=== PATIENT | female | born 1935 | race African-American/Black ===

== ENCOUNTER 2016-11-01 15:29 | Inpatient (IN) ==
--- NOTE | 2016-11-01 15:37 | Emergency Department Note ---
Disposition Clinical Impression: ESRD (end stage renal disease) on dialysis, UTI (urinary tract infection) Disposition: Admitted As Inpatient Condition: Fair Time of Disposition: 18:52 General Adult HPI - General Chief complaint: ED General Medical Stated complaint: low spo2, low bp Nursing Notes Reviewed: Yes Vital Signs Reviewed: Yes - History of Present Illness HPI Narrative: [facility] and decreased blood pressure. Is a dialysis patient was supposed to undergo dialysis today. She is unable to dialyze today due to hypotension. Her eyes track me, but she does not respond. She does appear fluid overloaded. Her lung sounds are wet bilaterally. She has pitting edema that appears chronic to her umbilicus. Her blood pressure here is in the 90s systolic and her SPO2 was in the high 90s as well. - Related Data Home Medications Medication Instructions Recorded Confirmed Bisacodyl [Dulcolax] 10 mg RC DAILY 09/05/16 11/01/16 Dorzolamide [Trusopt] 1 drop RIGHT EYE BID 09/05/16 11/01/16 Ergocalciferol (VITAMIN D2) 50,000 unit GTUBE QWEEK 09/05/16 11/01/16 [Vitamin D2] Ipratropium/Albuterol Neb [Duoneb] 3 ml IH Q6HR PRN 09/05/16 11/01/16 Metoclopramide HCl 5 mg GTUBE DAILY 09/05/16 11/01/16 OLANZapine [Zyprexa] 2.5 mg GTUBE DAILY 09/05/16 11/01/16 Famotidine [Heartburn Prevention] 20 mg GTUBE DAILY 11/01/16 11/01/16 Metoprolol [Lopressor] 25 mg GTUBE BID 11/01/16 11/01/16 Midodrine HCl 10 mg GTUBE TUTHSA 11/01/16 11/01/16 Warfarin [Coumadin] 3 mg GTUBE DAILY 11/01/16 11/01/16 Allergies Allergy/AdvReac Type Severity Reaction Status Date / Time Penicillins Allergy Hives Verified 09/05/16 08:17 Review of Systems: Patient has a trach patient who is on a ventilator. She responds to verbal stimuli by opening her eyes. She quickly goes back to sleep. Review of systems unable to be obtained. Limitations: ROS unobtainable due to patients medical condition Past Medical History - Past Medical History Medical history: Reports: atrial fibrillation, hypertension, renal disease, other (Chronic respiratory failure) Surgical history: Reports: tracheostomy Psychiatric history: Reports: no psych history - Social History Smoking Status: Unknown if ever smoked Smokeless Tobacco Status: No Alcohol use: Reports: none Drug use: Reports: none Physical Exam - General Limitations: altered mental status (Patient nonverbal due to trach. She does open her eyes and look around the room. I do not expect patient's mentation is very far from her baseline.), other (Patient has a trach and is on a ventilator. ) - Head Head exam: atraumatic, normocephalic, normal inspection - Eye Eye exam: Present: normal appearance, PERRL, EOMI. Absent: scleral icterus - ENT ENT exam: normal exam, normal oropharynx, mucous membranes moist - Neck Neck exam: Present: normal inspection, full ROM, trachea midline - Chest Chest inspection: Present: normal inspection, symmetric chest wall rise. Absent : rash - Respiratory Respiratory exam: Present: other (Rhonchi bilaterally.) - Cardiovascular Cardiovascular exam: Present: regular rate, normal rhythm, normal heart sounds - Abdominal Exam Abdominal exam: Present: soft, Non-Tender, normal bowel sounds, other (Pitting edema to umbilicus.). Absent: tenderness, distention, guarding, rebound, rigidity - Extremities Exam Extremities exam: Present: pedal edema, other (Pitting edema to bilateral legs up to umbilicus.) - Neurological Exam Neurological exam: Present: other (Opens eyes to verbal stimuli.) - Skin Skin exam: Present: warm, dry, intact. Absent: cyanosis Course Course Narrative: Patient is a chronic dialysis patient who is on a trach and ventilator. She is brought here by EMS today due to hypotension and [facility]. They state that she cannot do dialysis today due to her hypotension. She is in the 90s systolic while she is here. She does have rhonchi bilaterally. She does respond by opening her eyes to verbal stimuli. I do not believe this is far from her baseline. She also has pitting edema to her umbilicus. This appears chronic due to skin changes. Her overall health appears to be poor. We will do a sepsis workup on the patient. We will not do a fluid bolus due to her already overloaded fluid status. Patient is not febrile and is 91 systolic. She is maintaining oxygen saturation in the high 90s on her ventilator. - Reevaluation(s) Reevaluation #1: Patient has a UTI and needs dialysis. We will admit patient for this. I started her on IV antibiotic. We have withheld an IV bolus of saline due to patient's already overloaded fluid status. - Consultations Consultation #1: LORETO Owens accepted Pt in stable consition. She is wishing to be notified when labs come back. Time: 17:00 Consultation #2: Spoke with Gudelia Owens nurse practitioner as well as Dr. Jefferson. I have inform Dr. Jefferson the patient is being emitted and he agrees to this. I also spoke to Gudelia and she is aware of patient's labs. Time: 18:42 Vital Signs Temperature 98.3 F 11/01/16 15:30 Pulse Rate 86 11/01/16 15:30 Respiratory Rate 12 11/01/16 15:30 Blood Pressure 91/47 11/01/16 15:30 O2 Sat by Pulse Oximetry 97 11/01/16 15:30 Temperature 99.6 F 11/01/16 20:00 Pulse Rate 102 11/01/16 20:00 Respiratory Rate 15 11/01/16 20:00 Blood Pressure 101/71 11/01/16 20:00 O2 Sat by Pulse Oximetry 100 11/01/16 20:00 Oxygen Delivery Oxygen Delivery Ventilator Medical Decision Making - Medical Records Medical records reviewed: Yes I reviewed the patient's medical records. - Lab Data Lab results reviewed: Yes I reviewed the patient's lab results. Result diagrams: 11/01/16 17:53 11/01/16 17:53 Lab Results 11/01/16 11/01/16 Range/Units 15:42 17:07 ABG pH 7.37 (7.32-7.45) pH Units ABG pCO2 55 H (35-45) mmHg ABG pO2 122 H (85-104) mmHg ABG HCO3 31.8 H (21-27) mEQ/L ABG Total CO2 33.5 H (20-26) mEq/L ABG O2 Saturation 99 H (95-98) % ABG Base Excess 5.3 H (-2.0 to 3.0) mEq/L Blood Gas Modality ASSIST CONTROL Inspired O2 40 % Urine Color Yellow (Yellow) Urine Clarity Cloudy A (Clear) Urine pH 5.5 (5.0-8.0) pH Units Ur Specific [place] 1.015 (1.010-1.025) Urine Protein 100 H (Neg-Trace) mg/dL Urine Glucose (UA) Normal (Normal) mg/dL Urine Ketones Trace H (Negative) mg/dL Urine Blood Moderate H (Negative) Urine Nitrite Negative (Negative) Urine Bilirubin Small H (Negative) Urine Urobilinogen Normal (Normal) mg/dL Ur Leukocyte Esterase Large H (Negative) Urine Microscopic RBC 30-50 H (0-3) per hpf Urine Microscopic WBC TNTC H (0-3) per hpf Ur Squamous Epith Cells Many H (None-Few) per lpf Urine Bacteria Many H (None-Few) per hpf Hyaline Casts None Seen (None-Few) per lpf Ur Culture Indicated? YES A (NO) - Radiology Data Radiology results reviewed: Yes I reviewed the patient's radiology results. - EKG Data EKG #1 EKG results narrative: Atrial fibrillation at a rate of 92. QRS duration is 96. QT is 341. QTC is 391. No signs of acute ischemia. Improved from previous EKG dated 09/24/2016 when patient was in A. fib with RVR at a rate of 134. Attestation Statement - Attestation Attestation: I examined this patient and my medical decision-making was reviewed with the GRAY TENDER/PA/Advanced Practice Nurse/Resident Physician. I agree with the documented findings, disposition and treatment plan as described except to the extent set forth below. He presents to the emergency department with chief complaint of low blood pressure. Patient went for dialysis today and he could not dialyze her because her systolic blood pressure was in the 50s. Patient has no complaints but is nonverbal. She is trach dependent on a ventilator. On examination she is lying comfortably in bed. Satting low 90s on her typical settings. Also diffuse wheezing and rhonchi. Opens eyes to verbal. Plan. Septic workup. The patient's blood pressure is satisfactory here. She does note have a significant amount of edema. No infectious sources down and she is not febrile. She is admitted to medicine in consult to nephrology. 35 minutes of critical care time exclusive of separately billable procedures.
[2016-11-01 15:54] LABS: ABG Base Excess 5.3 mEq/L (-2.0 to 3.0); ABG HCO3 31.8 mEQ/L (21-27); ABG Oxygen Saturation 99 % (95-98); ABG PCO2 55 mmHg (35-45); ABG PH 7.37 pH Units (7.32-7.45); ABG PO2 122 mmHg (85-104); ABG TCO2 33.5 mEq/L (20-26)
[2016-11-01 15:55] LABS: Blood Gas FiO2 40 %
[2016-11-01 17:26] LABS: Bilirubin,Urine Small (Negative); Blood,Urine Moderate (Negative); Clarity,Urine Cloudy (Clear); Color,Urine Yellow (Yellow); Glucose,Urine (UA) Normal (Normal); Ketones,Urine Trace mg/dL (Negative); Leukocyte Esterase,Urine Large (Negative); Nitrite,Urine Negative (Negative); PH,Urine 5.5 pH Units (5.0-8.0); Protein,Urine 100 mg/dL (Neg-Trace); Specific Gravity,Urine 1.015 (1.010-1.025); Urobilinogen,Urine Normal (Normal)
[2016-11-01 17:31] LABS: Bacteria,Urine Many per hpf (None-Few); RBC,Urine 30-50 per hpf (0-3); Squamous Epithelial Cell,Urine Many per lpf (None-Few); WBC,Urine TNTC per hpf (0-3)
[2016-11-01 18:02] LABS: Basophils % 0.4 %; Eosinophils # 0.2 K/mcL (0.0-0.6); Eosinophils % 2.1 %; Hematocrit 33.5 % (35.3-44.9); Hemoglobin 10.2 g/dL (11.5-15.4); Immature Granulocytes % 0.4 % (0-4); Lymphocytes # 1.4 K/mcL (0.6-4.6); Lymphocytes % 19.7 %; Mean Corpuscular HGB Conc 30.4 g/dL (31.6-35.5); Mean Corpuscular Hemoglobin 28.2 pg (28.0-33.3); Mean Corpuscular Volume 92.5 fL (83.0-100.0); Monocytes % 13.1 %; Neutrophils # 4.7 K/mcL (1.6-8.9); Platelet Count 236 K/mcL (140-400); Red Blood Count 3.62 M/mcL (3.82-4.97); Segmented Neutrophils % 64.3 %
[2016-11-01 18:03] LABS: Hyaline Casts,Urine None Seen per lpf (None-Few)
[2016-11-01 18:08] LABS: INR 2.6; Prothrombin Time 29.3 Seconds (9.4-12.1)
[2016-11-01 18:11] LABS: Activated Partial Thrombo Time 45.1 Seconds (26.0-36.0)
[2016-11-01 18:17] LABS: Albumin 2.5 g/dL (3.5-5.0); Albumin/Globulin Ratio 0.6 (1.1-2.2); Bilirubin,Direct 0.3 mg/dL (0.0-0.5); Bilirubin,Indirect 0.3 mg/dL (0.0-1.2); Bilirubin,Total 0.6 mg/dL (0.2-1.2); Globulin 3.9 g/dL (2.4-3.5); Magnesium 2.5 mg/dL (1.6-2.6); Phosphorous 4.8 mg/dL (2.3-4.7); Potassium 4.8 mEq/L (3.5-4.5); Total Protein 6.4 g/dL (6.0-8.3)
[2016-11-01] MEDS ORDERED: Cefepime HCl 2,000 MG in D5% in Water (Mini-Bag+) 100 ML IVPB STA (18:42)
--- NOTE | 2016-11-01 20:10 | Internal Med History&Physical ---
<Asif Harrington - Last Filed: 11/02/16 01:08> Date of Encounter: 11/02/16 Time of Encounter: 20:07 Assessment and Plan (1) Hypotension Current visit: Yes Status: Acute At first sepsis was high on the differential however she does not have a fever/ white count and lactic acid WNL, but she may have underlying infection: pulmonary vs. urinary tract She did miss her dialysis and has not any since Saturday and is likely third spacing, so will administer dose of Albumin Patient has poor access and may eventually need pressors, so will obtain central access now Cannot administer fluids at this time as she has significant pulmonary edema Qualifiers: Qualified Code(s): I95.9 - Hypotension, unspecified (2) Acute and chronic respiratory failure Current visit: Yes Status: Acute Patient did de-saturate in the 80's prior to arrival but has been in the 90's while on trach/vent at FiO2 of 35% Will continue with vent management and monitor pulse ox continuously Initial ABG did show normal pH with CO2 retention, which I suspect is her baseline; will obtain another in AM Qualifiers: Qualified Code(s): J96.20 - Acute and chronic respiratory failure, unspecified whether with hypoxia or hypercapnia (3) ESRD (end stage renal disease) on dialysis Current visit: Yes Status: Chronic She normally receives MWF but recently switched to TTS schedule and has not had a session since Saturday Will consult her operations and maintenance specialist, Dr. 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 Meyers is a 81 year old female who presents to emergency department with hypotension. Has h/o of ESRD on dialysis and s/p trach and is on the vent. She is nonverbal and there is no family at bedside, so all history is obtained from previous notes. She does open her eyes intermittently but makes no purposeful movements and does not appear to be in any distress. Patient was supposed to get dialysis earlier today but could not due to low blood pressure and hypoxemia and was transferred to hospital. She usually gets her dialysis on Saturday however she was recently switched to Saturday, so she has not received dialysis since Saturday. Dr. Sloan manages her dialysis. I personally tried contacting the power of assistant city attorney which was her daughter, along with 2 additional MRSA contacts, her spouse and son. Unfortunately no one unanswered so I spoke with her [facility], [place] and confirmed her CODE STATUS a full code. Unsure if any family will be arriving. Past Med Surg Social Fam HX - Past Medical History Medical history: atrial fibrillation, hypertension, renal disease, other ( Chronic respiratory failure) Psychiatric history: no psych history - Past Surgical History Surgical History: tracheostomy - Social History Smoking Status: Unknown if ever smoked Smokeless Tobacco Status: No Alcohol use: none Drug use: none Internal Medicine - H&P: Meds Bisacodyl [Dulcolax] 10 mg RC DAILY 09/05/16 [History] Dorzolamide [Trusopt] 1 drop RIGHT EYE BID 09/05/16 [History] Ergocalciferol (VITAMIN D2) [Vitamin D2] 50,000 unit GTUBE QWEEK 09/05/16 [ History] Ipratropium/Albuterol Neb [Duoneb] 3 ml IH Q6HR PRN 09/05/16 [History] Metoclopramide HCl 5 mg GTUBE DAILY 09/05/16 [History] OLANZapine [Zyprexa] 2.5 mg GTUBE DAILY 09/05/16 [History] Famotidine [Heartburn Prevention] 20 mg GTUBE DAILY 11/01/16 [History] Metoprolol [Lopressor] 25 mg GTUBE BID 11/01/16 [History] Midodrine HCl 10 mg GTUBE TUTHSA 11/01/16 [History] Warfarin [Coumadin] 3 mg GTUBE DAILY 11/01/16 [History] Allergies Penicillins Allergy (Verified 09/05/16 08:17) Hives ROS unobtainable: due to mental status All Systems PM: A 10-system review of systems was performed and is negative for pertinent findings except as documented above in the HPI. - Constitutional Vitals: Temp Pulse Resp BP Pulse Ox 99.6 F 102 15 101/71 100 11/01/16 20:00 11/01/16 20:00 11/01/16 20:00 11/01/16 20:00 11/01/16 20:00 General appearance: Present: A&O X 0, no acute distress. Absent: answers questions appropriately (non-verbal) - Head Head exam: Present: atraumatic, normocephalic - Eye Eye exam: Present: PERRL, conjuntiva pink, sclera anicteric - Neck Neck exam general surgery: Present: supple, trachea midline. Absent: lymphadenopathy Additional comments: s/p tracheostomy - Respiratory Respiratory exam: Present: rhonchi. Absent: accessory muscle use, rales, respiratory distress, wheezes - Cardiovascular Cardiovascular exam: Present: irregular rhythm, +S1, +S2, tachycardia. Absent: diastolic murmur, gallop, rubs, systolic murmur - GI/Abdominal GI/Abdominal exam: Present: normal bowel sounds, soft, no peritoneal signs. Absent: distended, tenderness - Extremities Exam Extremities exam: Present: warm, radial pulses palpable and symetrical. Absent : calf tenderness, cyanotic, pedal edema Additional comments: 1+ pitting edema of upper extremities - Neurological Exam Neurological exam: Present: altered, speech deficit (non-verbal). Absent: oriented X3, pronater drift, facial droop - Skin Skin exam: Present: dry, intact Internal Med - H&P Results - Labs CBC & Chem 7: 11/01/16 17:53 11/01/16 17:53 Labs: Short CBC 11/01/16 Range/Units 17:53 WBC 7.3 (4.3-11.1) K/mcL Hgb 10.2 L (11.5-15.4) g/dL Hct 33.5 L (35.3-44.9) % Plt Count 236 (140-400) K/mcL Neutrophils # 4.7 (1.6-8.9) K/mcL BMP 11/01/16 17:53 Sodium 135 L Potassium 4.8 H Chloride 96 L Carbon Dioxide 30 H BUN 121 H Creatinine 4.30 H Glucose 81 Calcium 11.0 H Cardiac Enzymes 11/01/16 Range/Units 17:53 Troponin I 0.03 (0-0.03) ng/mL Liver Function 11/01/16 Range/Units 17:53 Total Bilirubin 0.6 (0.2-1.2) mg/dL Direct Bilirubin 0.3 (0.0-0.5) mg/dL AST 20 (5-34) Units/L ALT 13 (0-55) Units/L Alkaline Phosphatase 234 H (38-126) Units/L Albumin 2.5 L (3.5-5.0) g/dL <Syed Alex - Last Filed: 11/02/16 05:28> Internal Medicine - H&P: HPI History of present illness: Ms. Meyers is a 81 year old female All Systems PM: A 10-system review of systems was performed and is negative for pertinent findings except as documented above in the HPI. - Constitutional Vitals: Temp Pulse Resp BP Pulse Ox 98.0 F 101 15 84/66 99 11/02/16 04:00 11/02/16 05:00 11/02/16 05:00 11/02/16 05:00 11/02/16 05:00 Internal Med - H&P Results - Labs CBC & Chem 7: 11/01/16 17:53 11/01/16 17:53 Labs: Short CBC 11/01/16 Range/Units 17:53 WBC 7.3 (4.3-11.1) K/mcL Hgb 10.2 L (11.5-15.4) g/dL Hct 33.5 L (35.3-44.9) % Plt Count 236 (140-400) K/mcL Neutrophils # 4.7 (1.6-8.9) K/mcL BMP 11/01/16 17:53 Sodium 135 L Potassium 4.8 H Chloride 96 L Carbon Dioxide 30 H BUN 121 H Creatinine 4.30 H Glucose 81 Calcium 11.0 H Cardiac Enzymes 11/01/16 Range/Units 17:53 Troponin I 0.03 (0-0.03) ng/mL Liver Function 11/01/16 Range/Units 17:53 Total Bilirubin 0.6 (0.2-1.2) mg/dL Direct Bilirubin 0.3 (0.0-0.5) mg/dL AST 20 (5-34) Units/L ALT 13 (0-55) Units/L Alkaline Phosphatase 234 H (38-126) Units/L Albumin 2.5 L (3.5-5.0) g/dL - Impressions ITS Impressions KUB X-Ray 11/02/16 00:09 IMPRESSION: Right femoral central venous catheter appears low in position, with tip inferior to the level of the right femoral head. Clinical correlation suggested. Findings were called by the radiology call center. D/ / Minor Sweet MD / Minor Sweet MD Interpreting Provider: Minor Sweet MD Pelvis X-Ray 11/02/16 01:33 IMPRESSION: Catheter tip medial to the right femoral intertrochanteric region. D/ / Raymundo Chen MD / Raymundo Chen MD Interpreting Provider: Raymundo Chen MD - Attending Attestation I examined this patient and my medical decision-making was reviewed with the Resident Physician, Dr. Harrington. I agree with the documented findings, disposition and treatment plan as described except to the extent set forth below. Chest x-ray per radiology report and my review shows small bilateral pleural effusions and mild pulmonary edema, enlarged heart size, possible left base infiltrate. Tracheostomy cannula right-sided dialysis catheter and AICD pacemaker are noted. It is possible the patient has a pneumonia and sepsis in due to debilitation she does not mount a full inflammatory response. We will continue with broad-spectrum IV antibiotics. Hold IV fluids for now due to fluid overload secondary to missed hemodialysis. Start norepinephrine for blood pressure support. The patient is highly unstable and there is high probability of emergent and significant clinical decompensation with potential impairment of organ function including cardiovascular system and respiratory system. I have performed 40 minutes of critical care time which involved decision making of high complexity to assess, manipulate, and support vital organ system, in order to prevent further life threatening deterioration of the patient's condition. The time involved in the performance of any procedures and resident teaching was not counted toward critical care time and will be billed separately. Critical care time was spent evaluating the patient, reviewing imaging studies and laboratory data, ordering medications and reevaluating for clinical response to ordered medications.
[2016-11-01] MEDS ORDERED: Ondansetron 4 MG/2 ML VIAL IVP PRN (20:16)
[2016-11-01] MEDS ORDERED: Naloxone 0.4 MG/ML INJ IVP PRN (20:16)
[2016-11-01] MEDS ORDERED: Ipratropium/Albuterol Neb 3 ML IH PRN (20:20)
[2016-11-01] MEDS ORDERED: Albumin 25% 25gram/100mL 25 GM/100 ML IV.SOLN IVPB ONE (20:32)
[2016-11-01] MEDS ORDERED: Vancomycin 1,750 MG in D5% in Water 250 ML IVPB SCH (21:00)
[2016-11-01] MEDS ORDERED: Vancomycin 1,500 MG in D5% in Water 250 ML IVPB ONE (21:30)
--- NOTE | 2016-11-01 23:27 | Procedure Note ---
<Asif Harrington - Last Filed: 11/02/16 00:37> Date of procedure: 11/02/16 Pre-op diagnosis: hypotension Post-op diagnosis: same Procedure: A time-out was completed verifying correct patient, procedure, site, positioning , and special equipment if applicable. The patient was placed in a dependent position appropriate for central line placement based on the vein to be cannulated. The patients right groin was prepped and draped in sterile fashion. 1% Lidocaine was used to anesthetize the surrounding skin area. A triple lumen catheter was introduced into the the common femoral vein using the Seldinger technique and under ultrasound guidance. The catheter was threaded smoothly over the guide wire and appropriate blood return was obtained. Each lumen of the catheter was evacuated of air and flushed with sterile saline. The catheter was then sutured in place to the skin and a sterile dressing applied. Perfusion to the extremity distal to the point of catheter insertion was checked and found to be adequate. Attending was present for the entire procedure. Estimated Blood Loss: 20 mL The patient tolerated the procedure well and there were no complications. Anesthesia: local Surgeon: Syed Aelx Elastic Cutter: Asif Harrington Estimated blood loss (cc): 20 Pathology: none sent Condition: critical Disposition: floor <Syed Alex - Last Filed: 11/02/16 05:16> Procedure: I supervised this procedure and agree with the documentation above.
[2016-11-02] MEDS ORDERED: Norepinephrine 4 MG in D5% in Water 250 ML IVC SCH ×2 (03:30→05:13)
[2016-11-02] MEDS ORDERED: Ondansetron 4 MG/2 ML VIAL IVP PRN (05:13)
[2016-11-02] MEDS ORDERED: Naloxone 0.4 MG/ML INJ IVP PRN (05:13)
[2016-11-02 05:14] LABS: Basophils % 0.6 %; Eosinophils # 0.2 K/mcL (0.0-0.6); Eosinophils % 2.1 %; Hematocrit 29.9 % (35.3-44.9); Hemoglobin 9.4 g/dL (11.5-15.4); Immature Granulocytes % 0.3 % (0-4); Lymphocytes # 1.6 K/mcL (0.6-4.6); Lymphocytes % 21.6 %; Mean Corpuscular HGB Conc 31.4 g/dL (31.6-35.5); Mean Corpuscular Hemoglobin 28.7 pg (28.0-33.3); Mean Corpuscular Volume 91.2 fL (83.0-100.0); Mean Platelet Volume 12.8 fL (9.4-12.4); Monocytes # 0.9 K/mcL (0.0-1.3); Monocytes % 12.3 %; Neutrophils # 4.6 K/mcL (1.6-8.9); Platelet Count 221 K/mcL (140-400); Red Blood Count 3.28 M/mcL (3.82-4.97); Red Cell Distribution Width 15.2 % (11.5-14.5); Segmented Neutrophils % 63.1 %
[2016-11-02 05:24] LABS: ABG Base Excess 6.6 mEq/L (-2.0 to 3.0); ABG HCO3 31.3 mEQ/L (21-27); ABG Oxygen Saturation 98 % (95-98); ABG PCO2 45 mmHg (35-45); ABG PH 7.45 pH Units (7.32-7.45); ABG PO2 105 mmHg (85-104); ABG TCO2 32.7 mEq/L (20-26)
[2016-11-02 05:26] LABS: Blood Gas FiO2 35 %
[2016-11-02 05:51] LABS: Calcium 10.8 mg/dL (8.6-10.8); Magnesium 2.6 mg/dL (1.6-2.6); Phosphorous 4.4 mg/dL (2.3-4.7); Potassium 4.6 mEq/L (3.5-4.5)
[2016-11-02] MEDS ORDERED: Albumin 25% 25gram/100mL 25 GM/100 ML IV.SOLN IVPB ONE (06:57)
[2016-11-02] MEDS ORDERED: 0.9 % Sodium Chloride 500 ML IVC ONE (06:57)
[2016-11-02] MEDS: Metoclopramide 10 MG/10 ML UD.LIQ GTUBE SCH (08:00)
[2016-11-02] MEDS: OLANZapine 5 MG TAB.RAPDIS PO SCH (08:01)
[2016-11-02] MEDS: Pantoprazole 40 MG VIAL IVP SCH (08:01)
[2016-11-02] MEDS ORDERED: OLANZapine 5 MG TAB.RAPDIS PO SCH (09:00)
[2016-11-02] MEDS ORDERED: Metoclopramide 10 MG/10 ML UD.LIQ GTUBE SCH (09:00)
[2016-11-02] MEDS ORDERED: *HR* Warfarin 3 MG TABLET GTUBE SCH ×3 (09:00→18:00)
[2016-11-02] MEDS ORDERED: Pantoprazole 40 MG VIAL IVP SCH (09:00)
[2016-11-02] MEDS: Ipratropium/Albuterol Neb 3 ML IH SCH ×3 (10:28→21:53)
--- NOTE | 2016-11-02 10:36 | Nephrology Consult Note ---
Date of Encounter: 11/02/16 Time of Encounter: 10:34 Assessment and Plan (1) ESRD (end stage renal disease) on dialysis Current Visit: Yes Status: Chronic Patient will undergo dialysis today. She will be restarted on her midodrine for blood pressure support. She will be placed on Aranesp for her anemia. (2) Acute and chronic respiratory failure Current Visit: Yes Status: Acute Qualifiers: Respiratory failure complication: unspecified whether with hypoxia or hypercapnia Qualified Code(s): J96.20 - Acute and chronic respiratory failure , unspecified whether with hypoxia or hypercapnia (3) Hypotension Current Visit: Yes Status: Acute Qualifiers: Hypotension type: other hypotension type Qualified Code(s): I95.89 - Other hypotension (4) Chronic a-fib Current Visit: Yes Status: Chronic History of Present Illness - History of Present Illness This is an 81-year-old female with end-stage renal disease who receives dialysis in [place] [address]. Patient resides at [facility]. She has chronic respiratory failure and she is on the ventilator. Patient presented outpatient dialysis yesterday with a systolic blood pressure ranging from 50- 60. She is usually on midodrine for chronic hypotension. Patient did not receive the midodrine yesterday. She was sent back to the care home because of hypotension and the inability to dialyze her. residential eventually gave her the midodrine her blood pressure improved but the dialysis unit was closed by that time. Subsequently the patient was sent to the emergency room for further evaluation. Patient is unable to provide any history on her own. Past Med Surg Social Fam HX - Past Medical History Medical history: atrial fibrillation, hypertension, renal disease, other ( Chronic respiratory failure) Psychiatric history: no psych history - Past Surgical History Surgical History: tracheostomy - Social History Smoking Status: Unknown if ever smoked Smokeless Tobacco Status: No Alcohol use: none Drug use: none Medications and Allergies Bisacodyl [Dulcolax] 10 mg RC DAILY 09/05/16 [History] Dorzolamide [Trusopt] 1 drop RIGHT EYE BID 09/05/16 [History] Ergocalciferol (VITAMIN D2) [Vitamin D2] 50,000 unit GTUBE QWEEK 09/05/16 [ History] Ipratropium/Albuterol Neb [Duoneb] 3 ml IH Q6HR PRN 09/05/16 [History] Metoclopramide HCl 5 mg GTUBE DAILY 09/05/16 [History] OLANZapine [Zyprexa] 2.5 mg GTUBE DAILY 09/05/16 [History] Famotidine [Heartburn Prevention] 20 mg GTUBE DAILY 11/01/16 [History] Metoprolol [Lopressor] 25 mg GTUBE BID 11/01/16 [History] Midodrine HCl 10 mg GTUBE TUTHSA 11/01/16 [History] Warfarin [Coumadin] 3 mg GTUBE DAILY 11/01/16 [History] Allergies Penicillins Allergy (Verified 09/05/16 08:17) Hives Review of Systems ROS unobtainable: due to mental status Exam - Vital Signs Vital signs: Initial Vital Signs Temp Pulse Resp BP Pulse Ox 98.3 F 86 12 91/47 97 11/01/16 15:30 11/01/16 15:30 11/01/16 15:30 11/01/16 15:30 11/01/16 15:30 Vital Signs - Last 8 Hours Temp Pulse Resp BP Pulse Ox 11/02/16 10:31 19 91/59 100 11/02/16 09:11 87 14 83/56 99 11/02/16 08:00 90 12 93/63 99 11/02/16 07:49 97.8 F 11/02/16 06:00 120 15 106/79 100 Intake and Output 11/01/16 11/02/16 11/02/16 23:59 07:59 15:59 Intake Total 50 / 50 Balance 50 / 50 Intake: Free Water 50 / 50 - General Appearance Exam: Patient is unresponsive. A tracheal tube is in place. She is on the ventilator. Lungs symmetric breath sounds bilaterally. Heart irregular rate and rhythm consistent with atrial fibrillation. Abdomen shows diminished bowel sounds. Abdomen is soft. There is no guarding or rigidity. PEG tube is in place. Lower extremity show mild lower extremity swelling. She has a tunnel dialysis catheter in the right chest. Results - Lab Results 11/02/16 04:45 11/02/16 04:45 Most recent lab results ABG pH 7.45 pH Units (7.32-7.45) 11/02/16 05:18 ABG pCO2 45 mmHg (35-45) 11/02/16 05:18 ABG pO2 105 mmHg (85-104) H 11/02/16 05:18 ABG HCO3 31.3 mEQ/L (21-27) H 11/02/16 05:18 ABG O2 Saturation 98 % (95-98) 11/02/16 05:18 Calcium 10.8 mg/dL (8.6-10.8) 11/02/16 04:45 Phosphorus 4.4 mg/dL (2.3-4.7) 11/02/16 04:45 Magnesium 2.6 mg/dL (1.6-2.6) 11/02/16 04:45 Consult Discharge Plan - Plan Referrals: Jon Hernandez MD [Primary Care Provider] -
[2016-11-02] MEDS ORDERED: 0.9 % Sodium Chloride 250 ML IV PRN (10:37)
[2016-11-02 12:55] LABS: Thyroid Stimulating Hormone 29.747 mcIU/mL (0.350-4.840)
--- NOTE | 2016-11-02 14:47 | Palliative - Consult Note ---
Date of Encounter: 11/02/16 Time of Encounter: 13:00 - Assessment and Plan (1) Counseling regarding advanced care planning and goals of care Current Visit: Yes Status: Acute Assessment and plan: I have discussed goals of care with pt , Leonard Gipson, son Leonard Degroot, daughter Sofie - (lives around [facility]), and KOREY Hernandez who is now at bedside. Mary brought in her power of litigation attorney associate and I made copies of this for her record. She describes medical issues over the past year with first initial umbilical infection, repeated aspirations, ileus, UTI, resp failure. She had trach done during a 3 month stay at [facility], when she was not able to tolerate bipap and re-intubated,- and has spent time at [facility] in [place] on 2 different occasions within the past year. Family resides in [facility] and states pt only at [facility] as no close facility can meet her care needs. Discussed goals of care and they insist pt remain a full code per her previously known wishes. Patient's daughter, KOREY states that the Palliative care team at [facility] consulted with them during her stay. Family very spiritual and daughter states that they still believe that God can bring them a miracle and heal their mother. Daughter reflects a great deal on her daughter, who they stated would not survive an illness and they tried to "push me to sign a DNR". She states "I did everything for my daughter, and I will do everything for my parents, as that is what they would want.". Discussed clinical status and that if hypotension continues to be an issue, she may need line placement and pressors. Daughter familiar with this as pt has had before. Family extremely friendly and appreciate of the care she is receiving here. Palliative will follow from a distance. I do not believe family will desire to change code status or goals of care, unless she experience a severe clinical event. Palliative-CN HPI - Data of Consult Consult date: 11/02/16 Requesting Physician: Sasha Harrington MD Primary Care Provider: Jon Hernandez MD - Consult Narrative History of present illness: Ms. Meyers is a 81 year old female who was admitted from [facility] when she became hypoxic and had low blood pressure. Patient had not had dialysis since Saturday and has struggled with hypotension. Dr. Cuong Benedict follows patient for her renal disease. I was unable to reach POA initially, but did speak with son and over the telephone. They describes medical issues over the past year with first initial umbilical infection, atrial fibrillation and pace placement, repeated aspirations, ileus, UTI, and resp failure. She had trach done during a 3 month stay at [facility] , when she was not able to tolerate bipap and re-intubated, has recently been to [place], and has spent time at [facility] in [place] on 2 different occasions within the past year. Son states that she has been weaned off vent a couple of times, but requires more support when ill. She has been able to tolerate a trach mask during the day and vent support at night. At my visit, she appears in no distress. Will follow me with her eyes, and occasionally shake head "yes/no" to questions, but does not follow other commands. CC: Sasha Harrington MD Past Med Surg Social Fam HX - Past Medical History Medical history: atrial fibrillation, hypertension, renal disease, other ( Chronic respiratory failure) Psychiatric history: no psych history - Past Surgical History Surgical History: tracheostomy - Social History Smoking Status: Unknown if ever smoked Smokeless Tobacco Status: No Alcohol use: none Drug use: none Medications and Allergies Bisacodyl [Dulcolax] 10 mg RC DAILY 09/05/16 [History] Dorzolamide [Trusopt] 1 drop RIGHT EYE BID 09/05/16 [History] Ergocalciferol (VITAMIN D2) [Vitamin D2] 50,000 unit GTUBE QWEEK 09/05/16 [ History] Ipratropium/Albuterol Neb [Duoneb] 3 ml IH Q6HR PRN 09/05/16 [History] Metoclopramide HCl 5 mg GTUBE DAILY 09/05/16 [History] OLANZapine [Zyprexa] 2.5 mg GTUBE DAILY 09/05/16 [History] Famotidine [Heartburn Prevention] 20 mg GTUBE DAILY 11/01/16 [History] Metoprolol [Lopressor] 25 mg GTUBE BID 11/01/16 [History] Midodrine HCl 10 mg GTUBE TUTHSA 11/01/16 [History] Warfarin [Coumadin] 3 mg GTUBE DAILY 11/01/16 [History] Allergies Penicillins Allergy (Verified 09/05/16 08:17) Hives ROS unobtainable: due to endotracheal tube Palliative Care-Exam - Constitutional Vitals: Temp Pulse Resp BP Pulse Ox 97.8 F 94 13 88/59 100 11/02/16 11:40 11/02/16 13:33 11/02/16 13:33 11/02/16 13:33 11/02/16 13:33 General appearance: Present: no acute distress - Head Head Exam: Present: normal inspection, normocephalic - Eye Eye exam: Present: normal appearance, PERRL - Respiratory Additional comments: Breath sounds course, some rhonchi RUL. Remains trach to vent. - Cardiovascular Cardiovascular exam: Present: +S1, +S2 - Extremities Exam Extremities exam: Present: normal capillary refill, normal inspection - Neurological Exam Additional comments: Eyes open, will occasionally shake head yes/no. does not follow commands. - Skin Skin exam: Present: normal color Internal Medicine - CN: Reslt - Labs CBC & Chem 7: 11/02/16 04:45 11/02/16 04:45 Labs: Cardiac Enzymes 11/02/16 Range/Units 10:09 Troponin I 0.03 (0-0.03) ng/mL - ABG Interpretation ABG results: ABG ABG pH 7.45 pH Units (7.32-7.45) 11/02/16 05:18 ABG pCO2 45 mmHg (35-45) 11/02/16 05:18 ABG pO2 105 mmHg (85-104) H 11/02/16 05:18 ABG O2 Saturation 98 % (95-98) 11/02/16 05:18 PT/INR, D-dimer PT 29.3 Seconds (9.4-12.1) H 11/01/16 17:53 Consult Discharge Plan - Plan Referrals: Jon Hernandez MD [Primary Care Provider] - Palliative Quality Palliative Quality: Screen for Code Status: Yes, Screen for Goals of Care: Yes, Screen for Pain: Yes, If Pain Regimen Started, Initiate Bowel Regimen: NA, Screen for Nausea/Vomitting: NA
--- NOTE | 2016-11-02 15:21 | Pulmonology Consult Note ---
<Kelechi Haddad - Last Filed: 11/02/16 15:18> Date of Encounter: 11/02/16 Time of Encounter: 08:15 Assessment and Plan (1) Hypotension Current Visit: Yes Status: Acute Patient into the hospital with hypotension that had gone down to the 70s/40s but over the course today has come to the high 80s/50s. She had received albumin and some fluids last night. She has been receiving Midodrin. Etiology of patient hypotension unclear at the moment. No tachycardia, no tachypnea, afebrile, no leukocytosis make the possibility of an infection unlikely. She does have a dirty appearing urine, though she is ESRD on HD and does not produce much urine so likely any dirtiness in her urine seen is contamination or colonization, not necessarily acute infection. Patient's overall health is poor and she has missed several days of dialysis. We will continue to monitor closely Additional fluids if necessary Will consider additional central line and vasopressors if worsening and patient blood pressure sitting Qualifiers: Hypotension type: other hypotension type Qualified Code(s): I95.89 - Other hypotension (2) Acute and chronic respiratory failure Current Visit: Yes Status: Acute Patient reportedly had desaturation event into the 80s prior to arrival to [place]. Over the course of the day her oxygen saturation has been in the 90s or high 90s for the majority of the day. She has a tracheotomy that she received last March for which she has been receiving mechanical dilation. At times she has not required this in his feet with her daughter she appears to have been with just the trach cuff for a couple weeks at 1 point. Patient has been afebrile, not tachycardic, not tachypneic, and no leukocytosis observed. Unlikely patient has pneumonia or other infectious etiology. We will continue to support ventilation mechanically, as needed to maintain adequate oxygen saturation Will wean mechanical ventilation as tolerated by patient We will continue empiric antibiotics of cefepime and Vanco, but will de- escalate as warranted Qualifiers: Respiratory failure complication: unspecified whether with hypoxia or hypercapnia Qualified Code(s): J96.20 - Acute and chronic respiratory failure , unspecified whether with hypoxia or hypercapnia (3) ESRD (end stage renal disease) on dialysis Current Visit: Yes Status: Chronic Patient is a known end-stage renal disease on hemodialysis with recent schedule changed from Saturday to Saturday. She has not had dialysis since Saturday. Her cycle analyst, Dr. Sloan, is consulted and appreciate recommendations for continued management/care Likely dialysis today Avoid nephrotoxic agents Continue to monitor (4) Counseling regarding advanced care planning and goals of care Current Visit: Yes Status: Acute Patient nonverbal and with several chronic health conditions. Patient is full code per previous chart documentation indicates that she was comfort care at one point in time. There is a need to clarify her CODE STATUS going forward. Palliative care has been consulted and spoken with her various family members who all indicate that she would prefer to remain full code. Palliative care team consulted Patient to remain full code (5) UTI (urinary tract infection) Current Visit: Yes Status: Suspected Patient's UA was concerning for potential UTI. Given patient has ESRD on HD and makes little urine, this could represent contamination versus chronic: Physician versus UTI. We will continue empiric antibiotics Qualifiers: Qualified Code(s): N39.0 - Urinary tract infection, site not specified (6) Chronic a-fib Current Visit: Yes Status: Chronic Patient on warfarin with therapeutic INR. Continue monitor INR Warfarin with pharmacy to dose (7) DVT prophylaxis Current Visit: Yes Status: Acute GI prophylaxis: Pantoprazole DVT prophylaxis: Warfarin Neuro/sedation: Patient nonverbal at baseline, minimally responsive on no sedation. We will continue to monitor Respiratory: Chest x-ray showed mild pleural effusion and pleural edema, slight rhonchi is auscultated. On empiric antibiotics of cefepime and Vanco. We will continue to monitor Cardiovascular: Atrial fibrillation at baseline, therapeutic on warfarin. Hypotension of unclear etiology. Potentially need central line if need for pressors arises Fluids/electrolytes: Patient undergo dialysis today likely. Mild metabolic derangements, likely corrected with dialysis Renal: ESRD on HD, no dialysis is Saturday, elevated BUN and creatinine (above her baseline). Nephrology consulted, likely HD today GI: PEG tube in place, no other concerns at this time Musculoskeletal: Slight deviation of fingers and knuckles, soft tissue mass in back of right hand Skin: Skin care per ICU protocol Endocrine: Elevated TSH, normal free T4, cortisol normal, obtaining free T3 CODE STATUS full History of Present Illness Consult date: 11/02/16 Requesting physician: Asif Harrington Reason for consult: other (Hypertension with history of trach/mechanical ventilation) Chief complaint: Hypertension History of present illness: Mrs. Meyers is an 81-year-old woman with past medical history significant for recurrent aspiration pneumonias, leading to a tracheotomy performed in March 2016. She also has a history of atrial fibrillation, hypertension, and end- stage renal disease on dialysis. She was admitted to the hospital from the [facility] as she is found to have become hypoxic and hypotensive. Because of some confusion with her dialysis chair and change his schedule, she is not had dialysis since Saturday. Patient is nonverbal at baseline so history was obtained through chart review and is some discussion with patient's daughter. The majority of her health problems began within the last year and had started initially with an umbilical infection and up resulting in repeated aspiration pneumonia,, UTIs, and respiratory failure. She had a tracheostomy performed during a 3 month stay at [facility] when she was not able tolerate BiPAP was reintubated. She has been time off and on at [facility] in [place] now spent some time at [facility]. Past Med Surg Social Fam HX - Past Medical History Medical history: atrial fibrillation, hypertension, renal disease, other ( Chronic respiratory failure) Psychiatric history: no psych history - Past Surgical History Surgical History: tracheostomy - Social History Smoking Status: Unknown if ever smoked Smokeless Tobacco Status: No Alcohol use: none Drug use: none Medications and Allergies Bisacodyl [Dulcolax] 10 mg RC DAILY 09/05/16 [History] Dorzolamide [Trusopt] 1 drop RIGHT EYE BID 09/05/16 [History] Ergocalciferol (VITAMIN D2) [Vitamin D2] 50,000 unit GTUBE QWEEK 09/05/16 [ History] Ipratropium/Albuterol Neb [Duoneb] 3 ml IH Q6HR PRN 09/05/16 [History] Metoclopramide HCl 5 mg GTUBE DAILY 09/05/16 [History] OLANZapine [Zyprexa] 2.5 mg GTUBE DAILY 09/05/16 [History] Famotidine [Heartburn Prevention] 20 mg GTUBE DAILY 11/01/16 [History] Metoprolol [Lopressor] 25 mg GTUBE BID 11/01/16 [History] Midodrine HCl 10 mg GTUBE TUTHSA 11/01/16 [History] Warfarin [Coumadin] 3 mg GTUBE DAILY 11/01/16 [History] Allergies Penicillins Allergy (Verified 09/05/16 08:17) Hives ROS unobtainable: due to mental status Physical Examination Vital Signs: Vital Signs, Last 4 Hours Temp Pulse Resp BP Pulse Ox 11/02/16 14:30 101 20 91/65 100 11/02/16 13:33 94 13 88/59 100 11/02/16 12:49 90 18 86/58 97 11/02/16 11:40 97.8 F 11/02/16 11:21 102 18 89/39 99 Constitutional: No acute distress, comfortable appearing, nonverbal, minimally responsive at baseline EENT: Sclera nonicteric, noninjected, oropharynx moist Respiratory: Respirations nonlabored, slight rhonchi appreciated Cardiovascular: Regular rhythm, normal rate, no murmurs/rubs/gallops appreciated Gastrointestinal: Normoactive bowel sounds, soft, nontender, nondistended, no guarding or rebound Integumentary: No erythema, no rashes, no pallor appreciated Extremities: No cyanosis, 1-2+ pitted edema in upper and lower extremities, no clubbing, pink and warm, pulses present and equal bilaterally Musculoskeletal: Soft, movable lump in posterior aspect of right hand Neurologic: Altered at baseline, pupils equal round reactive to light bilaterally Ventilator Settings Ventilator Settings: Ventilator Settings, Last 8 Hours Ventilator Mode CPAP Ventilator Mode CPAP Ventilator Mode CPAP Ventilator Mode CPAP Ventilator Mode CPAP Ventilator Mode CPAP Ventilator Mode CPAP Ventilator Mode CPAP Ventilator Tidal Volume 450 Setting Ventilator Tidal Volume 450 Setting Ventilator Tidal Volume 450 Setting Ventilator Tidal Volume 450 Setting Ventilator Tidal Volume 450 Setting Ventilator Tidal Volume 450 Setting Ventilator Tidal Volume 450 Setting Actual Respiratory Rate 15 Actual Respiratory Rate 16 Actual Respiratory Rate 16 Actual Respiratory Rate 21 Actual Respiratory Rate 13 Actual Respiratory Rate 14 Actual Respiratory Rate 14 Actual Respiratory Rate 13 Positive End Expiratory 5 Pressure Positive End Expiratory 5 Pressure Positive End Expiratory 5 Pressure Positive End Expiratory 5 Pressure Positive End Expiratory 5 Pressure Positive End Expiratory 5 Pressure Positive End Expiratory 5 Pressure Positive End Expiratory 5 Pressure Peak Inspiratory Airway 17 Pressure Peak Inspiratory Airway 17 Pressure Peak Inspiratory Airway 17 Pressure Peak Inspiratory Airway 17 Pressure Peak Inspiratory Airway 17 Pressure Peak Inspiratory Airway 17 Pressure Peak Inspiratory Airway 17 Pressure Peak Inspiratory Airway 17 Pressure Results - Laboratory Findings CBC and BMP: 11/02/16 04:45 11/02/16 04:45 ABG ABG pH 7.45 pH Units (7.32-7.45) 11/02/16 05:18 ABG pCO2 45 mmHg (35-45) 11/02/16 05:18 ABG pO2 105 mmHg (85-104) H 11/02/16 05:18 ABG O2 Saturation 98 % (95-98) 11/02/16 05:18 PT/INR, D-dimer PT 29.3 Seconds (9.4-12.1) H 11/01/16 17:53 Abnormal lab findings: Abnormal lab results RBC 3.28 M/mcL (3.82-4.97) L 11/02/16 04:45 Hgb 9.4 g/dL (11.5-15.4) L 11/02/16 04:45 Hct 29.9 % (35.3-44.9) L 11/02/16 04:45 MCHC 31.4 g/dL (31.6-35.5) L 11/02/16 04:45 RDW 15.2 % (11.5-14.5) H 11/02/16 04:45 MPV 12.8 fL (9.4-12.4) H 11/02/16 04:45 PT 29.3 Seconds (9.4-12.1) H 11/01/16 17:53 APTT 45.1 Seconds (26.0-36.0) H 11/01/16 17:53 ABG pO2 105 mmHg (85-104) H 11/02/16 05:18 ABG HCO3 31.3 mEQ/L (21-27) H 11/02/16 05:18 ABG Total CO2 32.7 mEq/L (20-26) H 11/02/16 05:18 ABG Base Excess 6.6 mEq/L (-2.0 to 3.0) H 11/02/16 05:18 Sodium 135 mEq/L (136-145) L 11/02/16 04:45 Potassium 4.6 mEq/L (3.5-4.5) H 11/02/16 04:45 Chloride 95 mEq/L (98-109) L 11/02/16 04:45 BUN 95 mg/dL (7-20) H D 11/02/16 04:45 Creatinine 4.53 mg/dL (0.57-1.11) H 11/02/16 04:45 Est GFR ( Amer) 11 (> 60) L 11/02/16 04:45 Est GFR (Non-Af Amer) 9 (> 60) L 11/02/16 04:45 Calculated Osmolality 308 (280-300) H 11/02/16 04:45 Alkaline Phosphatase 234 Units/L (38-126) H 11/01/16 17:53 Albumin 2.5 g/dL (3.5-5.0) L 11/01/16 17:53 Globulin 3.9 g/dL (2.4-3.5) H 11/01/16 17:53 Albumin/Globulin Ratio 0.6 (1.1-2.2) L 11/01/16 17:53 TSH 29.747 mcIU/mL (0.350-4.840) H 11/02/16 10:09 Urine Clarity Cloudy (Clear) A 11/01/16 17:07 Urine Protein 100 mg/dL (Neg-Trace) H 11/01/16 17:07 Urine Ketones Trace mg/dL (Negative) H 11/01/16 17:07 Urine Blood Moderate (Negative) H 11/01/16 17:07 Urine Bilirubin Small (Negative) H 11/01/16 17:07 Ur Leukocyte Esterase Large (Negative) H 11/01/16 17:07 Urine Microscopic RBC 30-50 per hpf (0-3) H 11/01/16 17:07 Urine Microscopic WBC TNTC per hpf (0-3) H 11/01/16 17:07 Ur Squamous Epith Cells Many per lpf (None-Few) H 11/01/16 17:07 Urine Bacteria Many per hpf (None-Few) H 11/01/16 17:07 Ur Culture Indicated? YES (NO) A 11/01/16 17:07 - Clinical Findings Intake & Output: Intake & Output 11/01/16 11/02/16 11/02/16 23:59 07:59 15:59 Intake Total 50 / 50 Balance 50 / 50 Consult Discharge Plan - Plan Referrals: Jon Hernandez MD [Primary Care Provider] - <Maxi Hook - Last Filed: 11/02/16 17:24> All Systems: A 10-system review of systems was performed and is negative for pertinent findings except as documented above in the HPI. Physical Examination Vital Signs: Vital Signs, Last 4 Hours Temp Pulse Resp BP Pulse Ox 11/02/16 16:43 107 17 86/55 100 11/02/16 16:25 14 99 11/02/16 16:01 98.0 F 11/02/16 15:21 94 14 89/55 99 11/02/16 14:30 101 20 91/65 100 11/02/16 13:33 94 13 88/59 100 Ventilator Settings Ventilator Settings: Ventilator Settings, Last 8 Hours Ventilator Mode CPAP Ventilator Mode CPAP Ventilator Mode CPAP Ventilator Mode CPAP Ventilator Mode CPAP Ventilator Mode CPAP Ventilator Mode CPAP Ventilator Mode CPAP Ventilator Mode CPAP Ventilator Tidal Volume 450 Setting Ventilator Tidal Volume 450 Setting Ventilator Tidal Volume 450 Setting Ventilator Tidal Volume 450 Setting Ventilator Tidal Volume 450 Setting Ventilator Tidal Volume 450 Setting Ventilator Tidal Volume 450 Setting Ventilator Respiratory Rate 12 Setting Actual Respiratory Rate 17 Actual Respiratory Rate 14 Actual Respiratory Rate 14 Actual Respiratory Rate 15 Actual Respiratory Rate 16 Actual Respiratory Rate 16 Actual Respiratory Rate 21 Actual Respiratory Rate 13 Actual Respiratory Rate 14 Positive End Expiratory 5 Pressure Positive End Expiratory 5 Pressure Positive End Expiratory 5 Pressure Positive End Expiratory 5 Pressure Positive End Expiratory 5 Pressure Positive End Expiratory 5 Pressure Positive End Expiratory 5 Pressure Positive End Expiratory 5 Pressure Positive End Expiratory 5 Pressure Peak Inspiratory Airway 18 Pressure Peak Inspiratory Airway 17 Pressure Peak Inspiratory Airway 17 Pressure Peak Inspiratory Airway 17 Pressure Peak Inspiratory Airway 17 Pressure Peak Inspiratory Airway 17 Pressure Peak Inspiratory Airway 17 Pressure Peak Inspiratory Airway 17 Pressure Peak Inspiratory Airway 17 Pressure Results - Laboratory Findings CBC and BMP: 11/02/16 04:45 11/02/16 04:45 ABG ABG pH 7.45 pH Units (7.32-7.45) 11/02/16 05:18 ABG pCO2 45 mmHg (35-45) 11/02/16 05:18 ABG pO2 105 mmHg (85-104) H 11/02/16 05:18 ABG O2 Saturation 98 % (95-98) 11/02/16 05:18 PT/INR, D-dimer PT 29.3 Seconds (9.4-12.1) H 11/01/16 17:53 Abnormal lab findings: Abnormal lab results RBC 3.28 M/mcL (3.82-4.97) L 11/02/16 04:45 Hgb 9.4 g/dL (11.5-15.4) L 11/02/16 04:45 Hct 29.9 % (35.3-44.9) L 11/02/16 04:45 MCHC 31.4 g/dL (31.6-35.5) L 11/02/16 04:45 RDW 15.2 % (11.5-14.5) H 11/02/16 04:45 MPV 12.8 fL (9.4-12.4) H 11/02/16 04:45 PT 29.3 Seconds (9.4-12.1) H 11/01/16 17:53 APTT 45.1 Seconds (26.0-36.0) H 11/01/16 17:53 ABG pO2 105 mmHg (85-104) H 11/02/16 05:18 ABG HCO3 31.3 mEQ/L (21-27) H 11/02/16 05:18 ABG Total CO2 32.7 mEq/L (20-26) H 11/02/16 05:18 ABG Base Excess 6.6 mEq/L (-2.0 to 3.0) H 11/02/16 05:18 Sodium 135 mEq/L (136-145) L 11/02/16 04:45 Potassium 4.6 mEq/L (3.5-4.5) H 11/02/16 04:45 Chloride 95 mEq/L (98-109) L 11/02/16 04:45 BUN 95 mg/dL (7-20) H D 11/02/16 04:45 Creatinine 4.53 mg/dL (0.57-1.11) H 11/02/16 04:45 Est GFR ( Amer) 11 (> 60) L 11/02/16 04:45 Est GFR (Non-Af Amer) 9 (> 60) L 11/02/16 04:45 Calculated Osmolality 308 (280-300) H 11/02/16 04:45 Alkaline Phosphatase 234 Units/L (38-126) H 11/01/16 17:53 Albumin 2.5 g/dL (3.5-5.0) L 11/01/16 17:53 Globulin 3.9 g/dL (2.4-3.5) H 11/01/16 17:53 Albumin/Globulin Ratio 0.6 (1.1-2.2) L 02/16/17 17:53 TSH 29.747 mcIU/mL (0.350-4.840) H 11/02/16 10:09 Urine Clarity Cloudy (Clear) A 11/01/16 17:07 Urine Protein 100 mg/dL (Neg-Trace) H 11/01/16 17:07 Urine Ketones Trace mg/dL (Negative) H 11/01/16 17:07 Urine Blood Moderate (Negative) H 11/01/16 17:07 Urine Bilirubin Small (Negative) H 11/01/16 17:07 Ur Leukocyte Esterase Large (Negative) H 11/01/16 17:07 Urine Microscopic RBC 30-50 per hpf (0-3) H 11/01/16 17:07 Urine Microscopic WBC TNTC per hpf (0-3) H 11/01/16 17:07 Ur Squamous Epith Cells Many per lpf (None-Few) H 11/01/16 17:07 Urine Bacteria Many per hpf (None-Few) H 11/01/16 17:07 Ur Culture Indicated? YES (NO) A 11/01/16 17:07 - Clinical Findings Intake & Output: Intake & Output 11/02/16 11/02/16 11/02/16 07:59 15:59 23:59 Intake Total 162 / 162 Output Total 0 / 0 Balance 162 / 162 - Attending Attestation I examined this patient and my medical decision-making was reviewed with the SENIOR MATERIALS ANALYST/PA/Advanced Practice Nurse/Resident Physician. I agree with the documented findings, disposition and treatment plan as described except to the extent set forth below. Patient seen and examined. Labs, radiology, chart personally reviewed. Agree with resident's history and physical, assessment, plan with following comments: MACHINE WHITENER: Patient is does not follows commands, Pulmonary: Acceptable oxygenation and ventilation. It is not clear to me why patient had tracheostomy and she has chronic respiratory failure vent dependent , however changed to pressure support and patient has been tolerating it and they believe the weaning process as necessary to see the patient can come off the ventilator. Palliative care to follow up with the family to clarify the CODE STATUS since there is conflicting stories regarding that. I do not feel strongly patient has pneumonia based on the chest x-ray, however cannot be ruled out and continue antibiotics. Cardiovascular: Shock is not clear that urology by suspicion could be volume status intravascularly depletion, however septic shock in the differential diagnosis and continue antibiotics with a MAP goal of 60 mmHg is acceptable. GI: Nutrition per dietary and GI prophylaxis per routine Heme: DVT prophylaxis per routine ID: Continue antibiotics and plan to de-escalation Renal; urine out put and renal funtion reviewed. Discussed with the cycle analyst and patient will have dialysis Endorcine: blood glucose is monitored Lines: all lines checked and no evidence of infections Skin: skin care to prevent pressure ulcers per nursing routine care I spent 40 min of Critical Care time with this patient. It involved decision making of high complexity to assess, manipulate, and support vital organ system failure and/or to prevent further life threatening deterioration of the patient' s condition. The time involved in the performance of separately reportable procedures was not counted toward critical care time.
--- NOTE | 2016-11-02 17:38 | Electrocardiograph Report ---
[address] [place], [place] [address] Test Date: 2016-11-01 Pat Name: Katelynn Meyers Department: 105 Room: 11 Gender: F Meat Passer: : 1935 Requested By: Faith Jimenez Order Number: [id number] Reading MD: Tori Burns Measurements Intervals [place] Rate: 92 P: PA: 0 QRS: 63 QRSD: 96 T: 70 QT: 341 QTc: 391 Interpretive Statements ATRIAL FIBRILLATION ARTIFACT Electronically Signed On 11-02-2016 17:36:59 EST by Tori Burns
[2016-11-02] MEDS ORDERED: Warfarin perPT PO PRN (18:00)
[2016-11-02 18:36] LABS: Triiodothyronine (T3) Free < 1.00 pg/mL (1.71-3.71)
[2016-11-02] MEDS ORDERED: Cefepime HCl 1,000 MG in D5% in Water (Mini-Bag+) 100 ML IVPB SCH (21:00)
[2016-11-02 21:15] LABS: Acinetobacter baumannii by PCR Not Detected (Not Detect); Candida albicans by PCR Not Detected (Not Detect); Candida glabrata by PCR Not Detected (Not Detect); Candida krusei by PCR Not Detected (Not Detect); Candida parapsilosis by PCR Not Detected (Not Detect); Candida tropicalis by PCR Not Detected (Not Detect); Enterococcus by PCR Not Detected (Not Detect); Escherichia coli by PCR Not Detected (Not Detect); Klebsiella oxytoca by PCR Not Detected (Not Detect); Klebsiella pneumoniae by PCR Not Detected (Not Detect); Pseudomonas aeruginosa by PCR Not Detected (Not Detect); Serratia marcescens by PCR Not Detected (Not Detect); Staphylococcus aureus by PCR Not Detected (Not Detect); Streptococcus agalactiae(B)PCR Not Detected (Not Detect); Streptococcus by PCR Not Detected (Not Detect); Streptococcus pneumoniae PCR Not Detected (Not Detect); Streptococcus pyogenes (A) PCR Not Detected (Not Detect); blaKPC Carbapenem-Resist Gene Not Detected (Not Detect); mecA Methicillin-Resist Gene ***DETECTED*** (Not Detect); vanA/B Vancomycin-Resist Genes Not Detected (Not Detect)
[2016-11-02] MEDS: Cefepime HCl 1,000 MG in D5% in Water (Mini-Bag+) 100 ML IVPB SCH (21:35)
--- NOTE | 2016-11-02 22:08 | ECHO - Doppler Report ---
Echocardiogram Name: Katelynn Meyers Date of Study: 11/02/2016 Date: 1935 Ht: 65.0 in Medical Record#: [id number] Age: 81 Wt: 226.0 lb Gender: Female BSA: 2.08 Order #: [id number] Location: [facility] Room #: 11 Reading Physician: Aly Tran DO, CHEVY BONILLA FASNC Bingo Checker: Dacia Luna Ordering Physician: Asif Harrington DO Primary Physician: Jon Hernandez MD Indications: Fluid overload hypotension Impressions: Technically sub-optimal due to poor echocardiographic windows. LVEF 60-65%. Normal LV chamber size and function. Mild concentric left ventricular hypertrophy. Indeterminate diastolic function. Mildly dilated and hypokinetic right ventricle. Severely biatrial enlargement. Mild aortic regurgitation. Mild mitral regurgitation, which was not well evaluated and could be underestimated. Severe tricuspid regurgitation. No pulmonary hypertension identified. Left Ventricular Wall Motion: Rest Echo Findings All wall segments showed normal motion. Findings: Study Quality * Technically sub-optimal due to poor echocardiographic windows. ECG Findings * Atrial fibrillation. Left Ventricle * LVEF 60-65%. * Normal LV chamber size and function. * Mild concentric left ventricular hypertrophy. * Indeterminate diastolic function. Right Ventricle * Mildly dilated and hypokinetic right ventricle. Left Atrium * Severely dilated left atrium. Right Atrium * Severely dilated right atrium. Interatrial Septum * Interatrial septum not well evaluated. Aortic Valve * Aortic valve not well visualized. * Mildly calcified aortic valve leaflets. * Mild aortic regurgitation. * No aortic stenosis. Mitral Valve * Mildly thickened mitral valve leaflets. * Mild mitral annular calcification * Mild mitral regurgitation. * No mitral stenosis. Tricuspid Valve * Normal tricuspid valve structure. * Severe tricuspid regurgitation. * No pulmonary hypertension. * Estimated RVSP is 24 mmHg. * Estimated RA pressure is 5 mmHg. Pulmonic Valve * Pulmonic valve not well visualized. Aorta * Normally sized aortic root. Pericardium * The pericardium appears normal. IVC * The IVC is not well evaluated. Pulmonary Artery * Normal visualized portions of the main pulmonary artery. History Measurements: BP: 89/ 39 2D Normal Values RVIDd: 3.60 cm <2.7 cm IVSd: 1.40 cm 0.6 - 1.0 cm LVIDd: 3.60 cm 3.7 - 5.6 cm LVPWd: 1.40 cm 0.6 - 1.1 cm LVIDs: 2.60 cm 1.5 - 3.6 cm AO: 2.20 cm < 4.0 cm LA: 4.80 cm 2.0 - 4.0cm %FS: 27.80 cm >25 % LA volume: 99 Mitral Valve Peak E:.78 m/sec Peak E' Lat Lucas:11.4 cm/s Peak E' Med Lucas:7.7 cm/s E/E' Lat Ratio:6.8 E/E' Med Ratio:10.1 Tricuspid Valve TV Regurg Peak Grad: 19.00mmHg TV Regurg Peak Lucas: 2.16m/sec Updated by Aly Tran DO, CHAD, PRIYANKA REECE on 11/02/2016 10:02:20 PM electronically signed on 11/02/2016 10:03:36 PM with status of Final Wall Motion Alberto: 1=Normal, 2=Hypokinesis, 3=Akinesis, 4=Dyskinesis, 5=Aneurysmal, 6=Hyperkinetic, X=Not Visualized (Blank)=Missing
[2016-11-03 03:01] LABS: Basophils % 0.3 %; Eosinophils # 0.1 K/mcL (0.0-0.6); Eosinophils % 1.3 %; Hematocrit 29.7 % (35.3-44.9); Hemoglobin 9.3 g/dL (11.5-15.4); Immature Granulocytes % 0.3 % (0-4); Lymphocytes # 1.2 K/mcL (0.6-4.6); Lymphocytes % 17.9 %; Mean Corpuscular HGB Conc 31.3 g/dL (31.6-35.5); Mean Corpuscular Hemoglobin 28.3 pg (28.0-33.3); Mean Corpuscular Volume 90.3 fL (83.0-100.0); Mean Platelet Volume 11.5 fL (9.4-12.4); Monocytes % 14.3 %; Neutrophils # 4.5 K/mcL (1.6-8.9); Platelet Count 210 K/mcL (140-400); Red Blood Count 3.29 M/mcL (3.82-4.97); Red Cell Distribution Width 15.3 % (11.5-14.5); Segmented Neutrophils % 65.9 %
[2016-11-03 03:16] LABS: Albumin 2.7 g/dL (3.5-5.0); Albumin/Globulin Ratio 0.7 (1.1-2.2); Bilirubin,Total 0.7 mg/dL (0.2-1.2); Calcium 9.9 mg/dL (8.6-10.8); Potassium 3.9 mEq/L (3.5-4.5); Total Protein 6.7 g/dL (6.0-8.3)
[2016-11-03 03:20] LABS: INR 3.1; Prothrombin Time 34.8 Seconds (9.4-12.1)
[2016-11-03] MEDS: Ipratropium/Albuterol Neb 3 ML IH SCH ×4 (04:49→22:21)
[2016-11-03] MEDS ORDERED: Vancomycin 1,500 MG in D5% in Water 250 ML IVPB ONE (05:30)
[2016-11-03] MEDS: Pantoprazole 40 MG VIAL IVP SCH (08:34)
[2016-11-03] MEDS: OLANZapine 5 MG TAB.RAPDIS PO SCH (08:34)
[2016-11-03] MEDS: Metoclopramide 10 MG/10 ML UD.LIQ GTUBE SCH (08:34)
[2016-11-03] MEDS ORDERED: 0.9 % Sodium Chloride 250 ML IV PRN (08:54)
[2016-11-03] MEDS ORDERED: Vancomycin 500 MG in D5% in Water (Mini-Bag+) 100 ML IVPB ONE (09:55)
--- NOTE | 2016-11-03 10:33 | Nephrology Progress Note ---
Date of Encounter: 11/03/16 Time of Encounter: 10:10 - Assessment and Plan (1) ESRD (end stage renal disease) on dialysis Current Visit: Yes Status: Chronic Will do HD today. On Midodrine for BP support. Orders given Subjective Interval history: Trach to vent. Opens eyes when name called. BP 82/54 Objective - Vital Signs Vital signs: Vital Signs Temp Pulse Resp BP Pulse Ox 11/03/16 09:00 131 24 76/55 98 11/03/16 08:05 99.6 F 11/03/16 08:00 126 18 70/49 100 11/03/16 07:00 120 15 82/45 100 11/03/16 06:00 116 16 82/57 99 11/03/16 05:40 99.2 F 11/03/16 05:00 126 23 102/62 99 11/03/16 04:47 22 94/62 100 11/03/16 04:00 99.2 F 125 25 93/53 100 11/03/16 03:00 125 24 70/52 100 11/03/16 02:26 20 100 11/03/16 02:00 120 26 81/59 100 11/03/16 01:00 121 25 86/50 100 11/03/16 00:10 98.8 F 11/03/16 00:00 98.8 F 121 16 91/59 100 11/02/16 23:00 107 20 83/56 98 11/02/16 22:00 109 25 84/59 91 L 11/02/16 21:55 20 100 11/02/16 21:04 32 80/56 96 11/02/16 21:00 117 24 80/56 97 11/02/16 20:12 97.9 F 11/02/16 20:10 97/64 11/02/16 20:00 113 18 77/61 90 L 11/02/16 19:55 97/64 11/02/16 19:40 97/64 11/02/16 19:27 20 97/64 92 L 11/02/16 19:25 81/53 11/02/16 19:10 105/85 11/02/16 19:00 118 22 84/56 94 L 11/02/16 18:55 86/58 11/02/16 18:40 83/53 11/02/16 18:37 131 23 83/53 100 11/02/16 18:25 83/53 11/02/16 18:10 87/56 11/02/16 17:55 95/48 11/02/16 17:52 133 22 95/48 100 11/02/16 17:50 97.4 F L 16 98/56 11/02/16 17:40 78/40 11/02/16 17:25 78/50 11/02/16 17:10 89/54 11/02/16 16:55 97.4 F L 22 95/48 11/02/16 16:43 107 17 86/55 100 11/02/16 16:25 14 99 11/02/16 16:01 98.0 F 11/02/16 15:21 94 14 89/55 99 11/02/16 14:30 101 20 91/65 100 11/02/16 13:33 94 13 88/59 100 11/02/16 12:49 90 18 86/58 97 11/02/16 11:40 97.8 F 11/02/16 11:21 102 18 89/39 99 11/02/16 10:33 101 10 91/59 99 Intake and Output 11/02/16 11/03/16 11/03/16 23:59 07:59 15:59 Intake Total 985 / 985 291 / 291 291 / 291 Output Total 2600 / 2600 0 / 0 Balance -1615 / -1615 291 / 291 291 / 291 Intake: IV Fluids 100 / 100 Maxipime 1,000 MG In 100 / 100 Dextrose 5% (Minibag+) 100 ML 100 ML @ 200 mls/ hr IVPB Q24H [facility] Rx#: [id number] Oral 0 / 0 Tube Feeding 285 / 285 291 / 291 191 / 191 Free Water 50 / 50 Intake, Rinseback and 600 / 600 Flushes Free Water Intake Amount 50 / 50 Output: Total Dialysis Output 2600 / 2600 Catheter 0 / 0 Other: # Voids 1 Weight 102 kg 102 kg Blood Glucose* 96 Hemodialysis Net Fluid 2245 Removed (mL) Patient Weight 11/03/16 23:59 Weight 102 kg - General Appearance General appearance: Present: well-developed, well-nourished, appears started age , chronically ill EENT: Present: mucous membranes moist Neck: Present: no JVD Respiratory: Present: clear Cardiology: Present: no edema, regular rate, regular rhythm Gastrointestinal: Present: normoactive bowel sounds Integumentary: Present: warm and dry Psychiatric: Present: mood/affect appropriate - Lab 11/03/16 02:45 11/03/16 02:45 Most recent lab results ABG pH 7.45 pH Units (7.32-7.45) 11/02/16 05:18 ABG pCO2 45 mmHg (35-45) 11/02/16 05:18 ABG pO2 105 mmHg (85-104) H 11/02/16 05:18 ABG HCO3 31.3 mEQ/L (21-27) H 11/02/16 05:18 ABG O2 Saturation 98 % (95-98) 11/02/16 05:18 Calcium 9.9 mg/dL (8.6-10.8) 11/03/16 02:45 Phosphorus 4.4 mg/dL (2.3-4.7) 11/02/16 04:45 Magnesium 2.6 mg/dL (1.6-2.6) 11/02/16 04:45 Consult Discharge Plan - Plan Referrals: Jon Hernandez MD [Primary Care Provider] -
--- NOTE | 2016-11-03 12:05 | Pulmonology Progress Note ---
<Kelechi Haddad - Last Filed: 11/03/16 13:33> Date of Encounter: 11/03/16 Time of Encounter: 09:45 Assessment and Plan (1) Bacteremia Current Visit: Yes Status: Acute Patient found to have blood culture positive for gram positive cocci as well as Staphylococcus and MRSA positive PCR. This constellation is concerning for MRSA bacteremia. Patient hypotension likely related to septic shock. We will continue outpatient antibiotics of vancomycin and cefepime We will continue to closely monitor patient and patient blood pressure We will support patient blood pressure with as needed fluid boluses Hydrocortisone 100 mg every 8 5% albumin Peripheral dopamine if needed (2) Hypotension Current Visit: Yes Status: Acute Patient hypotension likely related to MRSA bacteremia. Gram-negative lucas also seen in patient urine. Patient blood pressure has been lower today, as low as 60s/40s. We will provide fluid boluses as needed 5% albumin We will treat bacteremia with vancomycin, continue cefepime for gram-negative rods in urine Dopamine if needed to maintain blood pressure Midodrin Hydrocortisone Qualifiers: Hypotension type: other hypotension type Qualified Code(s): I95.89 - Other hypotension (3) Acute and chronic respiratory failure Current Visit: Yes Status: Acute Patient reportedly had desaturation event into the 80s prior to arrival to [place]. Over the course of the day her oxygen saturation has been in the 90s or high 90s for the majority of the day. She has a tracheotomy that she received last March for which she has been receiving mechanical dilation. At times she has not required mechanical ventilation. Patient has been on CPAP consistently and maintaining adequate oxygenation. Temperature has been up to 99.6 and has been tachycardic. Patient oxygenating adequately on CPAP, continue CPAP but support ventilation mechanically if necessary Patient has MRSA bacteremia, will continue vancomycin for bacteremia We will continue cefepime for now due to gram-negative bacteria seen and patient urine Qualifiers: Respiratory failure complication: unspecified whether with hypoxia or hypercapnia Qualified Code(s): J96.20 - Acute and chronic respiratory failure , unspecified whether with hypoxia or hypercapnia (4) ESRD (end stage renal disease) on dialysis Current Visit: Yes Status: Chronic Patient is a known end-stage renal disease on hemodialysis with recent schedule changed from Saturday to Saturday. She has not had dialysis since Saturday. Patient underwent dialysis yesterday, and another session of dialysis today Her supervisor green end department, Dr. Sloan, is consulted and appreciate recommendations for continued management/care Avoid nephrotoxic agents Continue to monitor (5) Counseling regarding advanced care planning and goals of care Current Visit: Yes Status: Acute Patient nonverbal and with several chronic health conditions. Patient is full code per previous chart documentation indicates that she was comfort care at one point in time. There is a need to clarify her CODE STATUS going forward. Palliative care has been consulted and spoken with her various family members who all indicate that she would prefer to remain full code. Palliative care team consulted Patient to remain full code (6) UTI (urinary tract infection) Current Visit: Yes Status: Suspected Urine culture shows gram negative lucas. Unsure if this is contamination versus colonization versus acute UTI. Will continue cefepime for now. Continue cefepime Qualifiers: Urinary tract infection type: site unspecified Hematuria presence: without hematuria Qualified Code(s): N39.0 - Urinary tract infection, site not specified (7) Chronic a-fib Current Visit: Yes Status: Chronic Patient INR slightly supratherapeutic at 3.1, pharmacy to dose warfarin Continue monitor INR Warfarin with pharmacy to dose (8) DVT prophylaxis Current Visit: Yes Status: Acute GI prophylaxis: Pantoprazole DVT prophylaxis: Warfarin Neuro/sedation: Patient nonverbal at baseline, minimally responsive on no sedation. We will continue to monitor Respiratory: Chest x-ray showed mild pleural effusion and pleural edema, slight rhonchi is auscultated. On empiric antibiotics of cefepime and Vanco. We will continue to monitor Cardiovascular: Atrial fibrillation at baseline, therapeutic on warfarin. Hypotension septic in etiology. Try to avoid invasive interventions for blood pressure, will add dopamine peripherally if needed Fluids/electrolytes: Patient undergo dialysis today likely. Mild metabolic derangements, likely corrected with dialysis Renal: ESRD on HD, no dialysis is Saturday, elevated BUN and creatinine (above her baseline). Nephrology consulted, HD yesterday and today GI: PEG tube in place, no other concerns at this time Musculoskeletal: Slight deviation of fingers and knuckles, soft tissue mass in back of right hand ID: MRSA bacteremia, potential gram-negative lucas UTI. On vancomycin and cefepime. We will continue these antibiotics Skin: Skin care per ICU protocol Endocrine: Elevated TSH, normal free T4, cortisol normal, free T3 < 1, will supplement with Synthroid CODE STATUS full Subjective Principal diagnosis: Respiratory failure, hypotension, bacteremia Interval history: Patient appears slightly more responsive today, opening her eyes for previously she was not. She still does not follow commands. Blood pressures have been lower today but relatively stable. Blood cultures and PCR indicating MRSA bacteremia. Her continue to monitor closely Objective PUL Vital signs: Last Vital Signs Temp 99.6 F 11/03/16 08:05 Pulse 121 11/03/16 11:40 Resp 16 11/03/16 11:10 BP 80/48 11/03/16 11:40 Pulse Ox 99 11/03/16 11:00 Constitutional: No acute distress, alert, comfortable appearing EENT: Sclera nonicteric, noninjected, oropharynx moist, neck supple Respiratory: Respirations nonlabored, diffuse rhonchi appreciated Cardiovascular: Regular rate and rhythm, no murmurs/rubs/gallops appreciated Gastrointestinal: Normoactive bowel sounds, soft, nontender, nondistended, no guarding or rebound, PEG in place, no erythema or induration appreciated Integumentary: No erythema, no rashes, no pallor appreciated, capillary refill < 2 seconds, skin turgor normal, slight breakdown of skin in gluteal region Extremities: No cyanosis, 1+ edema, no clubbing, pink and warm, pulses present and equal bilaterally, bilateral foot boots intact Musculoskeletal: No deformities Neurologic: pupils equal round reactive to light bilaterally, patient nonverbal baseline Ventilator Settings Ventilator Settings: Ventilator Settings, Last 8 Hours Ventilator Mode CPAP Ventilator Mode CPAP Ventilator Mode CPAP Ventilator Mode CPAP Ventilator Mode CPAP Ventilator Mode CPAP Ventilator Tidal Volume 450 Setting Ventilator Tidal Volume 450 Setting Ventilator Tidal Volume 450 Setting Ventilator Tidal Volume 450 Setting Ventilator Tidal Volume 450 Setting Actual Respiratory Rate 17 Actual Respiratory Rate 21 Actual Respiratory Rate 18 Actual Respiratory Rate 18 Actual Respiratory Rate 15 Actual Respiratory Rate 26 Positive End Expiratory 5 Pressure Positive End Expiratory 5 Pressure Positive End Expiratory 5 Pressure Positive End Expiratory 5 Pressure Positive End Expiratory 5 Pressure Positive End Expiratory 5 Pressure Peak Inspiratory Airway 18 Pressure Peak Inspiratory Airway 17 Pressure Peak Inspiratory Airway 17 Pressure Peak Inspiratory Airway 17 Pressure Peak Inspiratory Airway 17 Pressure Peak Inspiratory Airway 17 Pressure Results - Laboratory Findings CBC and BMP: 11/03/16 02:45 11/03/16 02:45 ABG ABG pH 7.45 pH Units (7.32-7.45) 11/02/16 05:18 ABG pCO2 45 mmHg (35-45) 11/02/16 05:18 ABG pO2 105 mmHg (85-104) H 11/02/16 05:18 ABG O2 Saturation 98 % (95-98) 11/02/16 05:18 PT/INR, D-dimer PT 34.8 Seconds (9.4-12.1) H 11/03/16 02:45 Abnormal lab findings: Abnormal lab results RBC 3.29 M/mcL (3.82-4.97) L 11/03/16 02:45 Hgb 9.3 g/dL (11.5-15.4) L 11/03/16 02:45 Hct 29.7 % (35.3-44.9) L 11/03/16 02:45 MCHC 31.3 g/dL (31.6-35.5) L 11/03/16 02:45 RDW 15.3 % (11.5-14.5) H 11/03/16 02:45 PT 34.8 Seconds (9.4-12.1) H 11/03/16 02:45 APTT 45.1 Seconds (26.0-36.0) H 11/01/16 17:53 ABG pO2 105 mmHg (85-104) H 11/02/16 05:18 ABG HCO3 31.3 mEQ/L (21-27) H 11/02/16 05:18 ABG Total CO2 32.7 mEq/L (20-26) H 11/02/16 05:18 ABG Base Excess 6.6 mEq/L (-2.0 to 3.0) H 11/02/16 05:18 Sodium 135 mEq/L (136-145) L 11/03/16 02:45 Chloride 96 mEq/L (98-109) L 11/03/16 02:45 BUN 51 mg/dL (7-20) H D 11/03/16 02:45 Creatinine 2.92 mg/dL (0.57-1.11) H 11/03/16 02:45 Est GFR ( Amer) 19 (> 60) L 11/03/16 02:45 Est GFR (Non-Af Amer) 15 (> 60) L 11/03/16 02:45 Glucose 104 mg/dL (70-99) H 11/03/16 02:45 POC Glucose 110 (58-89) H 11/03/16 11:31 Alkaline Phosphatase 210 Units/L (38-126) H 11/03/16 02:45 Albumin 2.7 g/dL (3.5-5.0) L 11/03/16 02:45 Globulin 4.0 g/dL (2.4-3.5) H 11/03/16 02:45 Albumin/Globulin Ratio 0.7 (1.1-2.2) L 11/03/16 02:45 TSH 29.747 mcIU/mL (0.350-4.840) H 11/02/16 10:09 Free T3 < 1.00 pg/mL (1.71-3.71) L 11/02/16 10:09 Urine Clarity Cloudy (Clear) A 11/01/16 17:07 Urine Protein 100 mg/dL (Neg-Trace) H 11/01/16 17:07 Urine Ketones Trace mg/dL (Negative) H 11/01/16 17:07 Urine Blood Moderate (Negative) H 11/01/16 17:07 Urine Bilirubin Small (Negative) H 11/01/16 17:07 Ur Leukocyte Esterase Large (Negative) H 11/01/16 17:07 Urine Microscopic RBC 30-50 per hpf (0-3) H 11/01/16 17:07 Urine Microscopic WBC TNTC per hpf (0-3) H 11/01/16 17:07 Ur Squamous Epith Cells Many per lpf (None-Few) H 11/01/16 17:07 Urine Bacteria Many per hpf (None-Few) H 11/01/16 17:07 Ur Culture Indicated? YES (NO) A 11/01/16 17:07 Staphylococcus sp PCR DETECTED (Not Detect) A 11/01/16 20:12 MRS (TEM-PCR) DETECTED (Not Detect) A 11/01/16 20:12 - Clinical Findings Intake & Output: Intake & Output 11/02/16 11/03/16 11/03/16 23:59 07:59 15:59 Intake Total 985 / 985 291 / 291 1621 / 1621 Output Total 2600 / 2600 0 / 0 Balance -1615 / -1615 291 / 291 1621 / 1621 Weight 102 kg 102 kg Consult Discharge Plan - Plan Referrals: Jon Hernandez MD [Primary Care Provider] - <Maxi Hook - Last Filed: 11/03/16 18:21> Objective PUL Vital signs: Last Vital Signs Temp 98.4 F 11/03/16 15:57 Pulse 104 11/03/16 18:00 Resp 16 11/03/16 18:00 BP 87/60 11/03/16 18:00 Pulse Ox 99 11/03/16 18:00 Ventilator Settings Ventilator Settings: Ventilator Settings, Last 8 Hours Ventilator Mode CPAP Ventilator Mode CPAP Ventilator Mode CPAP Ventilator Mode CPAP Ventilator Mode CPAP Ventilator Mode CPAP Ventilator Mode CPAP Ventilator Mode CPAP Ventilator Tidal Volume 450 Setting Ventilator Tidal Volume 450 Setting Ventilator Tidal Volume 450 Setting Ventilator Tidal Volume 450 Setting Actual Respiratory Rate 17 Actual Respiratory Rate 14 Actual Respiratory Rate 27 Actual Respiratory Rate 14 Actual Respiratory Rate 14 Actual Respiratory Rate 17 Actual Respiratory Rate 16 Positive End Expiratory 5 Pressure Positive End Expiratory 5 Pressure Positive End Expiratory 5 Pressure Positive End Expiratory 5 Pressure Positive End Expiratory 5 Pressure Positive End Expiratory 5 Pressure Positive End Expiratory 5 Pressure Positive End Expiratory 5 Pressure Peak Inspiratory Airway 17 Pressure Peak Inspiratory Airway 17 Pressure Peak Inspiratory Airway 17 Pressure Peak Inspiratory Airway 18 Pressure Peak Inspiratory Airway 17 Pressure Peak Inspiratory Airway 17 Pressure Peak Inspiratory Airway 18 Pressure Peak Inspiratory Airway 17 Pressure Results - Laboratory Findings CBC and BMP: 11/03/16 02:45 11/03/16 02:45 ABG ABG pH 7.45 pH Units (7.32-7.45) 11/02/16 05:18 ABG pCO2 45 mmHg (35-45) 11/02/16 05:18 ABG pO2 105 mmHg (85-104) H 11/02/16 05:18 ABG O2 Saturation 98 % (95-98) 11/02/16 05:18 PT/INR, D-dimer PT 34.8 Seconds (9.4-12.1) H 11/03/16 02:45 Abnormal lab findings: Abnormal lab results RBC 3.29 M/mcL (3.82-4.97) L 11/03/16 02:45 Hgb 9.3 g/dL (11.5-15.4) L 11/03/16 02:45 Hct 29.7 % (35.3-44.9) L 11/03/16 02:45 MCHC 31.3 g/dL (31.6-35.5) L 11/03/16 02:45 RDW 15.3 % (11.5-14.5) H 11/03/16 02:45 PT 34.8 Seconds (9.4-12.1) H 11/03/16 02:45 APTT 45.1 Seconds (26.0-36.0) H 11/01/16 17:53 ABG pO2 105 mmHg (85-104) H 11/02/16 05:18 ABG HCO3 31.3 mEQ/L (21-27) H 11/02/16 05:18 ABG Total CO2 32.7 mEq/L (20-26) H 11/02/16 05:18 ABG Base Excess 6.6 mEq/L (-2.0 to 3.0) H 11/02/16 05:18 Sodium 135 mEq/L (136-145) L 11/03/16 02:45 Chloride 96 mEq/L (98-109) L 11/03/16 02:45 BUN 51 mg/dL (7-20) H D 11/03/16 02:45 Creatinine 2.92 mg/dL (0.57-1.11) H 11/03/16 02:45 Est GFR ( Amer) 19 (> 60) L 11/03/16 02:45 Est GFR (Non-Af Amer) 15 (> 60) L 11/03/16 02:45 Glucose 104 mg/dL (70-99) H 11/03/16 02:45 POC Glucose 110 (58-89) H 11/03/16 11:31 Alkaline Phosphatase 210 Units/L (38-126) H 11/03/16 02:45 Albumin 2.7 g/dL (3.5-5.0) L 11/03/16 02:45 Globulin 4.0 g/dL (2.4-3.5) H 11/03/16 02:45 Albumin/Globulin Ratio 0.7 (1.1-2.2) L 11/03/16 02:45 TSH 29.747 mcIU/mL (0.350-4.840) H 11/02/16 10:09 Free T3 < 1.00 pg/mL (1.71-3.71) L 11/02/16 10:09 Urine Clarity Cloudy (Clear) A 11/01/16 17:07 Urine Protein 100 mg/dL (Neg-Trace) H 11/01/16 17:07 Urine Ketones Trace mg/dL (Negative) H 11/01/16 17:07 Urine Blood Moderate (Negative) H 11/01/16 17:07 Urine Bilirubin Small (Negative) H 11/01/16 17:07 Ur Leukocyte Esterase Large (Negative) H 11/01/16 17:07 Urine Microscopic RBC 30-50 per hpf (0-3) H 11/01/16 17:07 Urine Microscopic WBC TNTC per hpf (0-3) H 11/01/16 17:07 Ur Squamous Epith Cells Many per lpf (None-Few) H 11/01/16 17:07 Urine Bacteria Many per hpf (None-Few) H 11/01/16 17:07 Ur Culture Indicated? YES (NO) A 11/01/16 17:07 Staphylococcus sp PCR DETECTED (Not Detect) A 11/01/16 20:12 MRS (TEM-PCR) DETECTED (Not Detect) A 11/01/16 20:12 - Clinical Findings Intake & Output: Intake & Output 11/03/16 11/03/1618 07:59 15:59 23:59 Intake Total 291 / 291 2421 / 2421 Output Total 0 / 0 Balance 291 / 291 2421 / 2421 Weight 102 kg 102 kg - Attending Attestation I examined this patient and my medical decision-making was reviewed with the PHARMACY INFORMATICS MANAGER/PA/Advanced Practice Nurse/Resident Physician. I agree with the documented findings, disposition and treatment plan as described except to the extent set forth below. Patient seen and examined. Labs, radiology, chart personally reviewed. 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 However, I don't feel decanulation of the tracheostomy would be recommended. Cardiovascular: Hypotensive. I feel MAP of 55-60 mmHg is reasonable for patient. I feel her BP is not reliable and due to coagulopathy, not a good a candidate for A-line. With her general condition, I feel this is acceptable. Hoping treatment of her bactremia will help. GI: Nutrition per dietary and GI prophylaxis per routine Heme: DVT prophylaxis per routine. Patient coagulopathic. ID: Continue antibiotics and plan to de-escalation. Add Fluconazole Renal; urine out put and renal funtion reviewed Endorcine: blood glucose is monitored. Give stress dose steroid and Thyroxine for hypothyroidism. Lines: all lines checked and no evidence of infections. She has femoral line in place, could be as peripheral vein, however due to coagulpathy and I suspect this patient has vasculopathy, to keep it in place for now. Skin: skin care to prevent pressure ulcers per nursing routine care I spent 35 min of Critical Care time with this patient. It involved decision making of high complexity to assess, manipulate, and support vital organ system failure and/or to prevent further life threatening deterioration of the patient' s condition. The time involved in the performance of separately reportable procedures was not counted toward critical care time.
[2016-11-03] MEDS: Fluconazole 100 MG/50 ML 100 MG/50 ML BAG IVPB SCH (12:27)
[2016-11-03] MEDS: Hydrocortisone Sodium Succ 100 MG/2 ML VIAL IVP SCH ×2 (14:22→17:50)
[2016-11-03] MEDS ORDERED: Hydrocortisone Sodium Succ 100 MG/2 ML VIAL IVP SCH (16:00)
[2016-11-03] MEDS: Levothyroxine Sodium 100 MCG VIAL IVP SCH (17:50)
[2016-11-03] MEDS: Cefepime HCl 1,000 MG in D5% in Water (Mini-Bag+) 100 ML IVPB SCH (21:13)
[2016-11-04] MEDS: Hydrocortisone Sodium Succ 100 MG/2 ML VIAL IVP SCH ×3 (00:11→16:29)
[2016-11-04] MEDS: Ipratropium/Albuterol Neb 3 ML IH SCH ×4 (04:47→22:21)
[2016-11-04 04:50] LABS: Hematocrit 31.4 % (35.3-44.9); Hemoglobin 9.4 g/dL (11.5-15.4); INR 2.7; Immature Granulocytes % 0.5 % (0-4); Lymphocytes # 0.6 K/mcL (0.6-4.6); Lymphocytes % 13.8 %; Mean Corpuscular HGB Conc 29.9 g/dL (31.6-35.5); Mean Corpuscular Hemoglobin 27.8 pg (28.0-33.3); Mean Corpuscular Volume 92.9 fL (83.0-100.0); Mean Platelet Volume 11.9 fL (9.4-12.4); Monocytes # 0.2 K/mcL (0.0-1.3); Monocytes % 4.8 %; Neutrophils # 3.5 K/mcL (1.6-8.9); Platelet Count 215 K/mcL (140-400); Prothrombin Time 29.8 Seconds (9.4-12.1); Red Blood Count 3.38 M/mcL (3.82-4.97); Red Cell Distribution Width 15.3 % (11.5-14.5); Segmented Neutrophils % 80.9 %
[2016-11-04 04:56] LABS: Calcium 9.6 mg/dL (8.6-10.8); Potassium 4.3 mEq/L (3.5-4.5)
[2016-11-04] MEDS: Levothyroxine Sodium 100 MCG VIAL IVP SCH (07:51)
[2016-11-04] MEDS: OLANZapine 5 MG TAB.RAPDIS PO SCH (07:51)
[2016-11-04] MEDS: Metoclopramide 10 MG/10 ML UD.LIQ GTUBE SCH (07:52)
[2016-11-04] MEDS: Pantoprazole 40 MG VIAL IVP SCH (07:52)
[2016-11-04] MEDS: Fluconazole 100 MG/50 ML 100 MG/50 ML BAG IVPB SCH (07:54)
[2016-11-04] MEDS: Ertapenem 500 MG in 0.9 % Sodium Chloride Mini Bag 100 ML IVPB SCH (08:43)
--- NOTE | 2016-11-04 10:13 | Nephrology Progress Note ---
Date of Encounter: 11/04/16 Time of Encounter: 10:00 - Assessment and Plan (1) ESRD (end stage renal disease) on dialysis Current Visit: Yes Status: Chronic Blood culture positive for gram positive cocci, Staphylococcus and MRSA. Will do HD tomorrow then DC permacath. Rest 2 days and have new line placed. Subjective Principal diagnosis: Respiratory failure, hypotension, bacteremia Interval history: Trach to vent. Opens eyes when name called. Nods head yes/no. Objective - Vital Signs Vital signs: Vital Signs Temp Pulse Resp BP Pulse Ox 11/04/16 09:51 128 20 105/77 100 11/04/16 08:33 151 16 98/72 92 L 11/04/16 07:51 119 16 92/58 89 L 11/04/16 06:38 16 85/48 97 11/04/16 06:00 105 16 83/56 97 11/04/16 05:44 99.1 F 11/04/16 05:00 105 20 105/74 100 11/04/16 04:48 19 100 11/04/16 04:00 121 20 87/70 100 11/04/16 03:00 109 15 86/61 98 11/04/16 02:00 100 14 83/57 98 11/04/16 01:58 16 85/62 97 11/04/16 01:00 94 15 82/57 98 11/04/16 00:05 17 95/51 98 11/04/16 00:00 97 22 95/61 100 11/03/16 23:01 98.4 F 11/03/16 23:00 98.4 F 103 17 94/63 96 11/03/16 22:21 15 103/69 92 L 11/03/16 22:00 116 15 89/57 94 L 11/03/16 21:00 94 14 106/61 97 11/03/16 20:15 14 90/55 98 11/03/16 20:00 94 14 86/56 97 11/03/16 19:11 98.3 F 11/03/16 19:00 98 14 107/72 98 11/03/16 18:00 104 16 87/60 99 11/03/16 17:05 17 79/56 98 11/03/16 17:00 99 16 79/56 98 11/03/16 16:00 104 11/03/16 15:57 98.4 F 11/03/16 15:27 28 77/47 95 11/03/16 14:18 96/66 11/03/16 14:10 95/45 11/03/16 14:00 105 16 76/39 100 11/03/16 13:55 27 76/39 95 11/03/16 13:40 95/61 11/03/16 13:25 92/52 11/03/16 13:10 92/52 11/03/16 13:00 115 16 60/34 100 11/03/16 12:55 75/49 11/03/16 12:40 87/54 11/03/16 12:25 88/61 11/03/16 12:10 95/58 11/03/16 12:00 117 14 71/53 100 11/03/16 11:55 75/49 11/03/16 11:40 121 86/57 11/03/16 11:25 82/42 11/03/16 11:10 16 79/44 11/03/16 11:00 114 17 63/33 99 11/03/16 10:56 16 69/43 100 11/03/16 10:55 84/58 Intake and Output 11/03/16 11/04/16 11/04/16 23:59 07:59 15:59 Intake Total 284 / 284 710 / 710 Output Total Balance 274 / 274 705 / 705 Intake: IV Fluids 100 / 100 Maxipime 1,000 MG In 100 / 100 Dextrose 5% (Minibag+) 100 ML 100 ML @ 200 mls/ hr IVPB Q24H [facility] Rx#: [id number] Tube Feeding 134 / 134 710 / 710 Free Water 50 / 50 Output: Catheter Other: Blood Glucose* 181 172 - General Appearance General appearance: Present: well-developed, well-nourished, appears started age EENT: Present: mucous membranes moist Neck: Present: no JVD Respiratory: Present: clear Cardiology: Present: edema, irregular rhythm Additional Comments: trace pitting Gastrointestinal: Present: normoactive bowel sounds, no tenderness Integumentary: Present: warm and dry Psychiatric: Present: mood/affect appropriate, cooperative - Lab 11/04/16 04:35 11/04/16 04:35 Most recent lab results ABG pH 7.45 pH Units (7.32-7.45) 11/02/16 05:18 ABG pCO2 45 mmHg (35-45) 11/02/16 05:18 ABG pO2 105 mmHg (85-104) H 11/02/16 05:18 ABG HCO3 31.3 mEQ/L (21-27) H 11/02/16 05:18 ABG O2 Saturation 98 % (95-98) 11/02/16 05:18 Calcium 9.6 mg/dL (8.6-10.8) 11/04/16 04:35 Phosphorus 4.4 mg/dL (2.3-4.7) 11/02/16 04:45 Magnesium 2.6 mg/dL (1.6-2.6) 11/02/16 04:45 Consult Discharge Plan - Plan Referrals: Jon Hernandez MD [Primary Care Provider] -
--- NOTE | 2016-11-04 11:02 | Pulmonology Progress Note ---
<Kelechi Haddad - Last Filed: 11/04/16 16:16> Date of Encounter: 11/04/16 Time of Encounter: 09:00 Assessment and Plan (1) Bacteremia Current Visit: Yes Status: Acute Patient found to have blood culture positive for methicillin-resistant Staphylococcus epidermidis and ESBL producing Escherichia coli. Patient hypotension likely related to septic shock. Patient blood pressure stabilized with interventions undertaken yesterday including Solu-Cortef, levothyroxine, fluid pulses, and when necessary albumin. We will continue patient vancomycin Change patient cefepime to ertapenem We will continue to closely monitor patient and patient blood pressure We will support patient blood pressure with as needed fluid boluses Continue Solu-Cortef Continue levothyroxin When necessary 5% albumin Peripheral dopamine if needed (2) Hypotension Current Visit: Yes Status: Acute Patient hypotension likely septic shock given patient methicillin-resistant Staphylococcus epidermidis bacteremia and ESBL Escherichia coli uti. Patient blood pressure has been stable today in the mid 90s to low 100s over 60s. We will provide fluid boluses as needed Continue when necessary 5% albumin We will treat bacteremia with vancomycin We will change cefepime to ertapenem for ESBL producing Escherichia coli in urine Peripheral Dopamine if needed to maintain blood pressure Continue Midodrin Continue Hydrocortisone Qualifiers: Hypotension type: other hypotension type Qualified Code(s): I95.89 - Other hypotension (3) Acute and chronic respiratory failure Current Visit: Yes Status: Acute Patient reportedly had desaturation event into the 80s prior to arrival to [place]. Over the course of the day her oxygen saturation has been in the 90s or high 90s for the majority of the day. She has a tracheotomy that she received last March for which she has been receiving mechanical dilation. At times she has not required mechanical ventilation. Patient has been on CPAP for several days, switch to trach mask today and oxygen a well. Patient oxygenating adequately on trach mask, continue CPAP at night to support respiration Patient has MRSE bacteremia, will continue vancomycin for bacteremia Cefepime changed to ertapenem Qualifiers: Respiratory failure complication: unspecified whether with hypoxia or hypercapnia Qualified Code(s): J96.20 - Acute and chronic respiratory failure , unspecified whether with hypoxia or hypercapnia (4) UTI (urinary tract infection) Current Visit: Yes Status: Suspected Urine culture grew ESBL producing Escherichia coli. Stop cefepime, start ertapenem Qualifiers: Urinary tract infection type: site unspecified Hematuria presence: without hematuria Qualified Code(s): N39.0 - Urinary tract infection, site not specified (5) ESRD (end stage renal disease) on dialysis Current Visit: Yes Status: Chronic Patient is a known end-stage renal disease on hemodialysis with recent schedule changed from Saturday to Saturday. She has not had dialysis since Saturday. Patient underwent dialysis 11/02/16, and another session 11/03/16 Her card placer, Dr. Sloan, is consulted and appreciate recommendations for continued management/care Avoid nephrotoxic agents Continue to monitor (6) Hypothyroid Current Visit: Yes Status: Acute Patient found to have elevated TSH of over 29, with free T3 <1.0. 25 g Synthroid started yesterday following 100 mg administration Solu-Cortef. Continue 25 g Synthroid Qualifiers: Hypothyroidism type: unspecified Qualified Code(s): E03.9 - Hypothyroidism , unspecified (7) Chronic a-fib Current Visit: Yes Status: Chronic Patient INR slightly supratherapeutic at 3.1, pharmacy to dose warfarin Continue monitor INR Warfarin with pharmacy to dose (8) DVT prophylaxis Current Visit: Yes Status: Acute GI prophylaxis: Pantoprazole DVT prophylaxis: Warfarin Neuro/sedation: Patient nonverbal at baseline, alert and able to respond to some questions today. We will continue to monitor Respiratory: Chest x-ray showed mild pleural effusion and pleural edema, slight rhonchi is auscultated. On vancomycin and ertapenem. We will continue to monitor Cardiovascular: Atrial fibrillation at baseline, therapeutic on warfarin. Hypotension septic in etiology. Try to avoid invasive interventions for blood pressure, will add dopamine peripherally if needed. Continue when necessary fluids, when necessary albumin, Solu-Cortef, Synthroid, Midodrin Fluids/electrolytes: Patient had dialysis on 11/02 and 11/03 Renal: ESRD on HD, no dialysis since Sunday 10/29 at admission, had HD on 11/02 and 11/03. Nephrology consulted GI: PEG tube in place, no other concerns at this time Musculoskeletal: Slight deviation of fingers and knuckles, soft tissue mass in back of right hand ID: MRSE bacteremia and ESBL Escherichia coli UTI. On vancomycin and started on ertapenem 11/04 Skin: Skin care per ICU protocol Endocrine: Elevated TSH, normal free T4, cortisol normal, free T3 < 1, continued Synthroid CODE STATUS full (9) Counseling regarding advanced care planning and goals of care Current Visit: Yes Status: Acute Patient nonverbal and with several chronic health conditions. Patient is full code per previous chart documentation indicates that she was comfort care at one point in time. There is a need to clarify her CODE STATUS going forward. Palliative care has been consulted and spoken with her various family members who all indicate that she would prefer to remain full code. Palliative care team consulted Patient to remain full code Subjective Principal diagnosis: Respiratory failure, hypotension, bacteremia Interval history: Patient appears more responsive and alert today. She has her eyes open spontaneously and seems to be able to understand what is being sent to her (to some extent) disease. She responded basic questions with slight nodding or shaking of her head. She denies shortness of breath, reports some discomfort ( but unable tell where close). Blood cultures show methicillin-resistant Staphylococcus epidermidis and urine culture grew ESBL Escherichia coli. Blood pressures have stabilized now been good for her. She has been on CPAP via trach for several days now, transition to trach mask this morning and is doing well. Objective PUL Vital signs: Last Vital Signs Temp 99.1 F 11/04/16 05:44 Pulse 128 11/04/16 09:51 Resp 20 11/04/16 09:51 BP 105/77 11/04/16 09:51 Pulse Ox 100 11/04/16 09:51 Constitutional: No acute distress, alert, comfortable appearing EENT: Sclera nonicteric, noninjected, oropharynx moist, neck supple Respiratory: Respirations nonlabored, slight expiratory wheeze auscultated Cardiovascular: Regular rate and rhythm, no murmurs/rubs/gallops appreciated Gastrointestinal: Normoactive bowel sounds, soft, nontender, nondistended, no guarding or rebound, PEG in place, no erythema or induration appreciated Integumentary: No erythema, no rashes, no pallor appreciated, skin turgor normal , slight breakdown of skin in gluteal region Extremities: No cyanosis, no edema, no clubbing, pink and warm, pulses present and equal bilaterally, bilateral foot boots in place, Musculoskeletal: No deformities Neurologic: pupils equal round reactive to light bilaterally, patient nonverbal baseline Ventilator Settings Ventilator Settings: Ventilator Settings, Last 8 Hours Ventilator Mode CPAP Ventilator Mode CPAP Actual Respiratory Rate 19 Actual Respiratory Rate 25 Positive End Expiratory 5 Pressure Positive End Expiratory 5 Pressure Peak Inspiratory Airway 17 Pressure Peak Inspiratory Airway 17 Pressure Results - Laboratory Findings CBC and BMP: 11/04/16 04:35 11/04/16 04:35 ABG ABG pH 7.45 pH Units (7.32-7.45) 11/02/16 05:18 ABG pCO2 45 mmHg (35-45) 11/02/16 05:18 ABG pO2 105 mmHg (85-104) H 11/02/16 05:18 ABG O2 Saturation 98 % (95-98) 11/02/16 05:18 PT/INR, D-dimer PT 29.8 Seconds (9.4-12.1) H 11/04/16 04:35 Abnormal lab findings: Abnormal lab results RBC 3.38 M/mcL (3.82-4.97) L 11/04/16 04:35 Hgb 9.4 g/dL (11.5-15.4) L 11/04/16 04:35 Hct 31.4 % (35.3-44.9) L 11/04/16 04:35 MCH 27.8 pg (28.0-33.3) L 11/04/16 04:35 MCHC 29.9 g/dL (31.6-35.5) L 11/04/16 04:35 RDW 15.3 % (11.5-14.5) H 11/04/16 04:35 PT 29.8 Seconds (9.4-12.1) H 11/04/16 04:35 APTT 45.1 Seconds (26.0-36.0) H 11/01/16 17:53 ABG pO2 105 mmHg (85-104) H 11/02/16 05:18 ABG HCO3 31.3 mEQ/L (21-27) H 11/02/16 05:18 ABG Total CO2 32.7 mEq/L (20-26) H 11/02/16 05:18 ABG Base Excess 6.6 mEq/L (-2.0 to 3.0) H 11/02/16 05:18 Sodium 134 mEq/L (136-145) L 11/04/16 04:35 Chloride 95 mEq/L (98-109) L 11/04/16 04:35 BUN 38 mg/dL (7-20) H D 11/04/16 04:35 Creatinine 2.45 mg/dL (0.57-1.11) H 11/04/16 04:35 Est GFR ( Amer) 23 (> 60) L 11/04/16 04:35 Est GFR (Non-Af Amer) 19 (> 60) L 11/04/16 04:35 Glucose 176 mg/dL (70-99) H 11/04/16 04:35 POC Glucose 172 (58-89) H 11/04/16 05:48 Alkaline Phosphatase 210 Units/L (38-126) H 11/03/16 02:45 Albumin 2.7 g/dL (3.5-5.0) L 11/03/16 02:45 Globulin 4.0 g/dL (2.4-3.5) H 11/03/16 02:45 Albumin/Globulin Ratio 0.7 (1.1-2.2) L 11/03/16 02:45 TSH 29.747 mcIU/mL (0.350-4.840) H 11/02/16 10:09 Free T3 < 1.00 pg/mL (1.71-3.71) L 11/02/16 10:09 Urine Clarity Cloudy (Clear) A 11/01/16 17:07 Urine Protein 100 mg/dL (Neg-Trace) H 11/01/16 17:07 Urine Ketones Trace mg/dL (Negative) H 11/01/16 17:07 Urine Blood Moderate (Negative) H 11/01/16 17:07 Urine Bilirubin Small (Negative) H 11/01/16 17:07 Ur Leukocyte Esterase Large (Negative) H 11/01/16 17:07 Urine Microscopic RBC 30-50 per hpf (0-3) H 11/01/16 17:07 Urine Microscopic WBC TNTC per hpf (0-3) H 11/01/16 17:07 Ur Squamous Epith Cells Many per lpf (None-Few) H 11/01/16 17:07 Urine Bacteria Many per hpf (None-Few) H 11/01/16 17:07 Ur Culture Indicated? YES (NO) A 11/01/16 17:07 Vancomycin Trough 23.6 mcg/mL (10-20) H* 11/04/16 04:35 Staphylococcus sp PCR DETECTED (Not Detect) A 11/01/16 20:12 MRS (TEM-PCR) DETECTED (Not Detect) A 11/01/16 20:12 - Clinical Findings Intake & Output: Intake & Output 11/03/16 11/04/16 11/04/16 23:59 07:59 15:59 Intake Total 284 / 284 710 / 710 Output Total 5 / 5 Balance 274 / 274 705 / 705 Consult Discharge Plan - Plan Referrals: Jon Hernandez MD [Primary Care Provider] - <Maxi Hook - Last Filed: 11/04/16 19:38> Objective PUL Vital signs: Last Vital Signs Temp 99.1 F 11/04/16 05:44 Pulse 131 11/04/16 11:26 Resp 20 11/04/16 11:26 BP 95/66 11/04/16 11:26 Pulse Ox 100 11/04/16 11:26 Ventilator Settings Ventilator Settings: Ventilator Settings, Last 8 Hours Ventilator Mode CPAP Ventilator Mode CPAP Actual Respiratory Rate 19 Actual Respiratory Rate 25 Positive End Expiratory 5 Pressure Positive End Expiratory 5 Pressure Peak Inspiratory Airway 17 Pressure Peak Inspiratory Airway 17 Pressure Results - Laboratory Findings CBC and BMP: 11/04/16 04:35 11/04/16 04:35 ABG ABG pH 7.45 pH Units (7.32-7.45) 11/02/16 05:18 ABG pCO2 45 mmHg (35-45) 11/02/16 05:18 ABG pO2 105 mmHg (85-104) H 11/02/16 05:18 ABG O2 Saturation 98 % (95-98) 11/02/16 05:18 PT/INR, D-dimer PT 29.8 Seconds (9.4-12.1) H 11/04/16 04:35 Abnormal lab findings: Abnormal lab results RBC 3.38 M/mcL (3.82-4.97) L 11/04/16 04:35 Hgb 9.4 g/dL (11.5-15.4) L 11/04/16 04:35 Hct 31.4 % (35.3-44.9) L 11/04/16 04:35 MCH 27.8 pg (28.0-33.3) L 11/04/16 04:35 MCHC 29.9 g/dL (31.6-35.5) L 11/04/16 04:35 RDW 15.3 % (11.5-14.5) H 11/04/16 04:35 PT 29.8 Seconds (9.4-12.1) H 11/04/16 04:35 APTT 45.1 Seconds (26.0-36.0) H 11/01/16 17:53 ABG pO2 105 mmHg (85-104) H 11/02/16 05:18 ABG HCO3 31.3 mEQ/L (21-27) H 11/02/16 05:18 ABG Total CO2 32.7 mEq/L (20-26) H 11/02/16 05:18 ABG Base Excess 6.6 mEq/L (-2.0 to 3.0) H 11/02/16 05:18 Sodium 134 mEq/L (136-145) L 11/04/16 04:35 Chloride 95 mEq/L (98-109) L 11/04/16 04:35 BUN 38 mg/dL (7-20) H D 11/04/16 04:35 Creatinine 2.45 mg/dL (0.57-1.11) H 11/04/16 04:35 Est GFR ( Amer) 23 (> 60) L 11/04/16 04:35 Est GFR (Non-Af Amer) 19 (> 60) L 11/04/16 04:35 Glucose 176 mg/dL (70-99) H 11/04/16 04:35 POC Glucose 172 (58-89) H 11/04/16 05:48 Alkaline Phosphatase 210 Units/L (38-126) H 11/03/16 02:45 Albumin 2.7 g/dL (3.5-5.0) L 11/03/16 02:45 Globulin 4.0 g/dL (2.4-3.5) H 11/03/16 02:45 Albumin/Globulin Ratio 0.7 (1.1-2.2) L 11/03/16 02:45 TSH 29.747 mcIU/mL (0.350-4.840) H 11/02/16 10:09 Free T3 < 1.00 pg/mL (1.71-3.71) L 11/02/16 10:09 Urine Clarity Cloudy (Clear) A 11/01/16 17:07 Urine Protein 100 mg/dL (Neg-Trace) H 11/01/16 17:07 Urine Ketones Trace mg/dL (Negative) H 11/01/16 17:07 Urine Blood Moderate (Negative) H 11/01/16 17:07 Urine Bilirubin Small (Negative) H 11/01/16 17:07 Ur Leukocyte Esterase Large (Negative) H 11/01/16 17:07 Urine Microscopic RBC 30-50 per hpf (0-3) H 11/01/16 17:07 Urine Microscopic WBC TNTC per hpf (0-3) H 11/01/16 17:07 Ur Squamous Epith Cells Many per lpf (None-Few) H 11/01/16 17:07 Urine Bacteria Many per hpf (None-Few) H 11/01/16 17:07 Ur Culture Indicated? YES (NO) A 11/01/16 17:07 Vancomycin Trough 23.6 mcg/mL (10-20) H* 11/04/16 04:35 Staphylococcus sp PCR DETECTED (Not Detect) A 11/01/16 20:12 MRS (TEM-PCR) DETECTED (Not Detect) A 11/01/16 20:12 - Clinical Findings Intake & Output: Intake & Output 11/03/16 11/04/16 11/04/16 23:59 07:59 15:59 Intake Total 284 / 284 710 / 710 140 / 140 Output Total 10 / 10 5 / 5 Balance 274 / 274 705 / 705 140 / 140 - Attending Attestation I examined this patient and my medical decision-making was reviewed with the FRUIT PICKER MACHINE OPERATOR/PA/Advanced Practice Nurse/Resident Physician. I agree with the documented findings, disposition and treatment plan as described except to the extent set forth below. Patient seen and examined. Labs, radiology, chart personally reviewed. Agree with resident's history and physical, assessment, plan with following comments: NUTRITION COUNSELOR: Patient somewhat more awake. Pulmonary: Acceptable oxygenation and ventilation. She was successfully weaned off to TM. To put her back on the vent at night, if necessary. Cardiovascular: BP much improved with replacement of her thyroid and steroid. Will lower dose of thyroxine due to tachycardia GI: Nutrition per dietary and GI prophylaxis per routine Heme: DVT prophylaxis per routine ID: Continue antibiotics and plan to de-escalation Renal; urine out put and renal funtion reviewed Endorcine: blood glucose is monitored Lines: all lines checked and no evidence of infections. Nephrology to decide about access for HD. I feel patient has vascuolpathy and for now will keep right femoral as peripheral access Skin: skin care to prevent pressure ulcers per nursing routine care
[2016-11-04] MEDS ORDERED: *HR* Warfarin 2.5 MG TABLET PO ONE (18:00)
[2016-11-05] MEDS: Hydrocortisone Sodium Succ 100 MG/2 ML VIAL IVP SCH ×3 (00:24→17:47)
[2016-11-05] MEDS: Ipratropium/Albuterol Neb 3 ML IH SCH ×4 (03:49→22:10)
[2016-11-05 04:49] LABS: Basophils % 0.1 %; Eosinophils % 0.1 %; Hematocrit 31.6 % (35.3-44.9); Hemoglobin 9.4 g/dL (11.5-15.4); Immature Granulocytes % 1.1 % (0-4); Lymphocytes % 14.6 %; Mean Corpuscular HGB Conc 29.7 g/dL (31.6-35.5); Mean Corpuscular Hemoglobin 27.6 pg (28.0-33.3); Mean Corpuscular Volume 92.9 fL (83.0-100.0); Monocytes # 0.6 K/mcL (0.0-1.3); Monocytes % 7.8 %; Neutrophils # 5.4 K/mcL (1.6-8.9); Platelet Count 244 K/mcL (140-400); Red Cell Distribution Width 15.2 % (11.5-14.5); Segmented Neutrophils % 76.3 %
[2016-11-05 04:52] LABS: INR 2.7; Prothrombin Time 30.3 Seconds (9.4-12.1)
[2016-11-05 05:07] LABS: Calcium 9.6 mg/dL (8.6-10.8); Potassium 4.4 mEq/L (3.5-4.5)
[2016-11-05] MEDS: Pantoprazole 40 MG VIAL IVP SCH (07:56)
[2016-11-05] MEDS: Levothyroxine Sodium 100 MCG VIAL IVP SCH (07:56)
[2016-11-05] MEDS: OLANZapine 5 MG TAB.RAPDIS PO SCH (07:59)
[2016-11-05] MEDS: Metoclopramide 10 MG/10 ML UD.LIQ GTUBE SCH (08:00)
--- NOTE | 2016-11-05 08:49 | Pulmonology Progress Note ---
<Kelechi Haddad - Last Filed: 11/05/16 08:49> Time of Encounter: 08:30 Assessment and Plan (1) Bacteremia Current Visit: Yes Status: Acute Patient found to have blood culture positive for methicillin-resistant Staphylococcus epidermidis and ESBL producing Escherichia coli. Patient hypotension likely related to septic shock. Patient blood pressure stabilized with interventions undertaken yesterday including Solu-Cortef, levothyroxine, fluid pulses, and when necessary albumin. We will continue patient vancomycin Change patient cefepime to ertapenem We will continue to closely monitor patient and patient blood pressure We will support patient blood pressure with as needed fluid boluses Continue Solu-Cortef Continue levothyroxin When necessary 5% albumin Peripheral dopamine if needed (2) Hypotension Current Visit: Yes Status: Acute Patient hypotension likely septic shock given patient methicillin-resistant Staphylococcus epidermidis bacteremia and ESBL Escherichia coli uti. Patient blood pressure has been stable today in the mid 90s to low 100s over 60s. We will provide fluid boluses as needed Continue when necessary 5% albumin We will treat bacteremia with vancomycin We will change cefepime to ertapenem for ESBL producing Escherichia coli in urine Peripheral Dopamine if needed to maintain blood pressure Continue Midodrin Continue Hydrocortisone Qualifiers: Hypotension type: other hypotension type Qualified Code(s): I95.89 - Other hypotension (3) Acute and chronic respiratory failure Current Visit: Yes Status: Acute Patient reportedly had desaturation event into the 80s prior to arrival to [place]. Over the course of the day her oxygen saturation has been in the 90s or high 90s for the majority of the day. She has a tracheotomy that she received last March for which she has been receiving mechanical dilation. At times she has not required mechanical ventilation. Patient has been on CPAP for several days, switch to trach mask today and oxygen a well. Patient oxygenating adequately on trach mask, continue CPAP at night to support respiration Patient has MRSE bacteremia, will continue vancomycin for bacteremia Cefepime changed to ertapenem Qualifiers: Respiratory failure complication: unspecified whether with hypoxia or hypercapnia Qualified Code(s): J96.20 - Acute and chronic respiratory failure , unspecified whether with hypoxia or hypercapnia (4) UTI (urinary tract infection) Current Visit: Yes Status: Suspected Urine culture grew ESBL producing Escherichia coli. Stop cefepime, start ertapenem Qualifiers: Urinary tract infection type: site unspecified Hematuria presence: without hematuria Qualified Code(s): N39.0 - Urinary tract infection, site not specified (5) ESRD (end stage renal disease) on dialysis Current Visit: Yes Status: Chronic Patient is a known end-stage renal disease on hemodialysis with recent schedule changed from Saturday to Saturday. She has not had dialysis since Saturday. Patient underwent dialysis 11/02/16, and another session 11/03/16 Her cut off machine operator, Dr. Sloan, is consulted and appreciate recommendations for continued management/care Avoid nephrotoxic agents Continue to monitor (6) Hypothyroid Current Visit: Yes Status: Acute Patient found to have elevated TSH of over 29, with free T3 <1.0. 25 g Synthroid started yesterday following 100 mg administration Solu-Cortef. Continue 25 g Synthroid Qualifiers: Hypothyroidism type: unspecified Qualified Code(s): E03.9 - Hypothyroidism , unspecified (7) Chronic a-fib Current Visit: Yes Status: Chronic Patient INR slightly supratherapeutic at 3.1, pharmacy to dose warfarin Continue monitor INR Warfarin with pharmacy to dose (8) DVT prophylaxis Current Visit: Yes Status: Acute GI prophylaxis: Pantoprazole DVT prophylaxis: Warfarin Neuro/sedation: Patient nonverbal at baseline, alert and able to respond to some questions today. We will continue to monitor Respiratory: Chest x-ray showed mild pleural effusion and pleural edema, slight rhonchi is auscultated. On vancomycin and ertapenem. We will continue to monitor Cardiovascular: Atrial fibrillation at baseline, therapeutic on warfarin. Hypotension septic in etiology. Try to avoid invasive interventions for blood pressure, will add dopamine peripherally if needed. Continue when necessary fluids, when necessary albumin, Solu-Cortef, Synthroid, Midodrin Fluids/electrolytes: Patient had dialysis on 11/02 and 11/03 Renal: ESRD on HD, no dialysis since Sunday 10/29 at admission, had HD on 11/02 and 11/03. Nephrology consulted GI: PEG tube in place, no other concerns at this time Musculoskeletal: Slight deviation of fingers and knuckles, soft tissue mass in back of right hand ID: [id number] bacteremia and ESBL Escherichia coli UTI. On vancomycin and started on ertapenem 11/04 Skin: Skin care per ICU protocol Endocrine: Elevated TSH, normal free T4, cortisol normal, free T3 < 1, continued Synthroid CODE STATUS full (9) Counseling regarding advanced care planning and goals of care Current Visit: Yes Status: Acute Patient nonverbal and with several chronic health conditions. Patient is full code per previous chart documentation indicates that she was comfort care at one point in time. There is a need to clarify her CODE STATUS going forward. Palliative care has been consulted and spoken with her various family members who all indicate that she would prefer to remain full code. Palliative care team consulted Patient to remain full code Subjective Principal diagnosis: Respiratory failure, hypotension, bacteremia Interval history: Patient appears more responsive and alert today. She has her eyes open spontaneously and seems to be able to understand what is being sent to her (to some extent) disease. She responded basic questions with slight nodding or shaking of her head. She denies shortness of breath, reports some discomfort ( but unable tell where close). Blood cultures show methicillin-resistant Staphylococcus epidermidis and urine culture grew ESBL Escherichia coli. Blood pressures have stabilized now been good for her. She has been on CPAP via trach for several days now, transition to trach mask this morning and is doing well. Objective PUL Vital signs: Last Vital Signs Temp 98.1 F 11/05/16 07:33 Pulse 103 11/05/16 08:22 Resp 19 11/05/16 08:22 BP 105/76 11/05/16 08:22 Pulse Ox 97 11/05/16 08:22 Ventilator Settings Ventilator Settings: Ventilator Settings, Last 8 Hours Ventilator Mode CPAP Ventilator Mode CPAP Ventilator Mode CPAP Ventilator Mode CPAP Ventilator Mode CPAP Ventilator Mode CPAP Ventilator Mode CPAP Ventilator Mode CPAP Ventilator Mode CPAP Ventilator Tidal Volume 450 Setting Ventilator Tidal Volume 450 Setting Ventilator Tidal Volume 450 Setting Ventilator Tidal Volume 450 Setting Ventilator Tidal Volume 450 Setting Ventilator Tidal Volume 450 Setting Ventilator Tidal Volume 450 Setting Ventilator Tidal Volume 450 Setting Ventilator Tidal Volume 450 Setting Actual Respiratory Rate 22 Actual Respiratory Rate 22 Actual Respiratory Rate 22 Actual Respiratory Rate 16 Actual Respiratory Rate 15 Actual Respiratory Rate 18 Actual Respiratory Rate 17 Actual Respiratory Rate 16 Actual Respiratory Rate 18 Positive End Expiratory 5 Pressure Positive End Expiratory 5 Pressure Positive End Expiratory 5 Pressure Positive End Expiratory 5 Pressure Positive End Expiratory 5 Pressure Positive End Expiratory 5 Pressure Positive End Expiratory 5 Pressure Positive End Expiratory 5 Pressure Positive End Expiratory 5 Pressure Peak Inspiratory Airway 17 Pressure Peak Inspiratory Airway 18 Pressure Peak Inspiratory Airway 17 Pressure Peak Inspiratory Airway 17 Pressure Peak Inspiratory Airway 17 Pressure Peak Inspiratory Airway 17 Pressure Peak Inspiratory Airway 17 Pressure Peak Inspiratory Airway 17 Pressure Peak Inspiratory Airway 14 Pressure Results - Laboratory Findings CBC and BMP: 11/05/16 04:30 11/05/16 04:30 ABG ABG pH 7.45 pH Units (7.32-7.45) 11/02/16 05:18 ABG pCO2 45 mmHg (35-45) 11/02/16 05:18 ABG pO2 105 mmHg (85-104) H 11/02/16 05:18 ABG O2 Saturation 98 % (95-98) 11/02/16 05:18 PT/INR, D-dimer PT 30.3 Seconds (9.4-12.1) H 11/05/16 04:30 Abnormal lab findings: Abnormal lab results RBC 3.40 M/mcL (3.82-4.97) L 11/05/16 04:30 Hgb 9.4 g/dL (11.5-15.4) L 11/05/16 04:30 Hct 31.6 % (35.3-44.9) L 11/05/16 04:30 MCH 27.6 pg (28.0-33.3) L 11/05/16 04:30 MCHC 29.7 g/dL (31.6-35.5) L 11/05/16 04:30 RDW 15.2 % (11.5-14.5) H 11/05/16 04:30 PT 30.3 Seconds (9.4-12.1) H 11/05/16 04:30 APTT 45.1 Seconds (26.0-36.0) H 11/01/16 17:53 ABG pO2 105 mmHg (85-104) H 11/02/16 05:18 ABG HCO3 31.3 mEQ/L (21-27) H 11/02/16 05:18 ABG Total CO2 32.7 mEq/L (20-26) H 11/02/16 05:18 ABG Base Excess 6.6 mEq/L (-2.0 to 3.0) H 11/02/16 05:18 Sodium 133 mEq/L (136-145) L 11/05/16 04:30 Chloride 94 mEq/L (98-109) L 11/05/16 04:30 BUN 61 mg/dL (7-20) H D 11/05/16 04:30 Creatinine 3.16 mg/dL (0.57-1.11) H 11/05/16 04:30 Est GFR ( Amer) 17 (> 60) L 11/05/16 04:30 Est GFR (Non-Af Amer) 14 (> 60) L 11/05/16 04:30 Glucose 159 mg/dL (70-99) H 11/05/16 04:30 POC Glucose 156 (58-89) H 11/05/16 00:19 Alkaline Phosphatase 210 Units/L (38-126) H 11/03/16 02:45 Albumin 2.7 g/dL (3.5-5.0) L 11/03/16 02:45 Globulin 4.0 g/dL (2.4-3.5) H 11/03/16 02:45 Albumin/Globulin Ratio 0.7 (1.1-2.2) L 11/03/16 02:45 TSH 29.747 mcIU/mL (0.350-4.840) H 11/02/16 10:09 Free T3 < 1.00 pg/mL (1.71-3.71) L 11/02/16 10:09 Urine Clarity Cloudy (Clear) A 11/01/16 17:07 Urine Protein 100 mg/dL (Neg-Trace) H 11/01/16 17:07 Urine Ketones Trace mg/dL (Negative) H 11/01/16 17:07 Urine Blood Moderate (Negative) H 11/01/16 17:07 Urine Bilirubin Small (Negative) H 11/01/16 17:07 Ur Leukocyte Esterase Large (Negative) H 11/01/16 17:07 Urine Microscopic RBC 30-50 per hpf (0-3) H 11/01/16 17:07 Urine Microscopic WBC TNTC per hpf (0-3) H 11/01/16 17:07 Ur Squamous Epith Cells Many per lpf (None-Few) H 11/01/16 17:07 Urine Bacteria Many per hpf (None-Few) H 11/01/16 17:07 Ur Culture Indicated? YES (NO) A 11/01/16 17:07 Vancomycin Trough 23.6 mcg/mL (10-20) H* 11/04/16 04:35 Staphylococcus sp PCR DETECTED (Not Detect) A 11/01/16 20:12 MRS (TEM-PCR) DETECTED (Not Detect) A 11/01/16 20:12 - Clinical Findings Intake & Output: Intake & Output 11/04/16 11/05/16 11/05/16 23:59 07:59 15:59 Intake Total 112 / 112 539 / 539 50 / 50 Output Total 0 / 0 0 / 0 0 / 0 Balance 112 / 112 539 / 539 50 / 50 Consult Discharge Plan - Plan Referrals: Jon Hernandez MD [Primary Care Provider] - <Woody Coats - Last Filed: 11/05/16 14:30> Date of Encounter: 11/05/16 Objective PUL Vital signs: Last Vital Signs Temp 98.3 F 11/05/16 11:29 Pulse 99 11/05/16 13:00 Resp 21 11/05/16 13:00 BP 107/75 11/05/16 13:00 Pulse Ox 99 11/05/16 13:00 Results - Laboratory Findings CBC and BMP: 11/05/16 04:30 11/05/16 04:30 ABG ABG pH 7.45 pH Units (7.32-7.45) 11/02/16 05:18 ABG pCO2 45 mmHg (35-45) 11/02/16 05:18 ABG pO2 105 mmHg (85-104) H 11/02/16 05:18 ABG O2 Saturation 98 % (95-98) 11/02/16 05:18 PT/INR, D-dimer PT 30.3 Seconds (9.4-12.1) H 11/05/16 04:30 Abnormal lab findings: Abnormal lab results RBC 3.40 M/mcL (3.82-4.97) L 11/05/16 04:30 Hgb 9.4 g/dL (11.5-15.4) L 11/05/16 04:30 Hct 31.6 % (35.3-44.9) L 11/05/16 04:30 MCH 27.6 pg (28.0-33.3) L 11/05/16 04:30 MCHC 29.7 g/dL (31.6-35.5) L 11/05/16 04:30 RDW 15.2 % (11.5-14.5) H 11/05/16 04:30 PT 30.3 Seconds (9.4-12.1) H 11/05/16 04:30 APTT 45.1 Seconds (26.0-36.0) H 11/01/16 17:53 ABG pO2 105 mmHg (85-104) H 11/02/16 05:18 ABG HCO3 31.3 mEQ/L (21-27) H 11/02/16 05:18 ABG Total CO2 32.7 mEq/L (20-26) H 11/02/16 05:18 ABG Base Excess 6.6 mEq/L (-2.0 to 3.0) H 11/02/16 05:18 Sodium 133 mEq/L (136-145) L 11/05/16 04:30 Chloride 94 mEq/L (98-109) L 11/05/16 04:30 BUN 61 mg/dL (7-20) H D 11/05/16 04:30 Creatinine 3.16 mg/dL (0.57-1.11) H 11/05/16 04:30 Est GFR ( Amer) 17 (> 60) L 11/05/16 04:30 Est GFR (Non-Af Amer) 14 (> 60) L 11/05/16 04:30 Glucose 159 mg/dL (70-99) H 11/05/16 04:30 POC Glucose 156 (58-89) H 11/05/16 11:06 Alkaline Phosphatase 210 Units/L (38-126) H 11/03/16 02:45 Albumin 2.7 g/dL (3.5-5.0) L 11/03/16 02:45 Globulin 4.0 g/dL (2.4-3.5) H 11/03/16 02:45 Albumin/Globulin Ratio 0.7 (1.1-2.2) L 11/03/16 02:45 TSH 29.747 mcIU/mL (0.350-4.840) H 11/02/16 10:09 Free T3 < 1.00 pg/mL (1.71-3.71) L 11/02/16 10:09 Urine Clarity Cloudy (Clear) A 11/01/16 17:07 Urine Protein 100 mg/dL (Neg-Trace) H 11/01/16 17:07 Urine Ketones Trace mg/dL (Negative) H 11/01/16 17:07 Urine Blood Moderate (Negative) H 11/01/16 17:07 Urine Bilirubin Small (Negative) H 11/01/16 17:07 Ur Leukocyte Esterase Large (Negative) H 11/01/16 17:07 Urine Microscopic RBC 30-50 per hpf (0-3) H 11/01/16 17:07 Urine Microscopic WBC TNTC per hpf (0-3) H 11/01/16 17:07 Ur Squamous Epith Cells Many per lpf (None-Few) H 11/01/16 17:07 Urine Bacteria Many per hpf (None-Few) H 11/01/16 17:07 Ur Culture Indicated? YES (NO) A 11/01/16 17:07 Vancomycin Trough 23.6 mcg/mL (10-20) H* 11/04/16 04:35 Staphylococcus sp PCR DETECTED (Not Detect) A 11/01/16 20:12 MRS (TEM-PCR) DETECTED (Not Detect) A 11/01/16 20:12 - Clinical Findings Intake & Output: Intake & Output 11/04/16 11/05/16 11/05/16 23:59 07:59 15:59 Intake Total 112 / 112 539 / 539 260 / 260 Output Total 0 / 0 0 / 0 25 / 25 Balance 112 / 112 539 / 539 235 / 235 Weight 102 kg
[2016-11-05] MEDS: Fluconazole 100 MG/50 ML 100 MG/50 ML BAG IVPB SCH (09:19)
[2016-11-05] MEDS: Ertapenem 500 MG in 0.9 % Sodium Chloride Mini Bag 100 ML IVPB SCH (09:19)
[2016-11-05] MEDS ORDERED: Aminoglycoside Consult 1 EACH MC ONE (09:20)
--- NOTE | 2016-11-05 11:11 | Event Note ---
Date of Encounter: 11/05/16 Time of Encounter: 11:00 Chart reviewed from weekend. Receiving treatment for + MRSA sepsis. Remains relatively stable. D/W Dr. Coats - family discussions last week resulted in family desiring to stay the course of aggressive care and remain full code. Palliative will sign off, please re-consult if needed.
[2016-11-05] MEDS ORDERED: 0.9 % Sodium Chloride 250 ML IV PRN ×3 (12:03→18:21)
[2016-11-05] MEDS ORDERED: *HR* Heparin 10,000 UNIT/10 ML VIAL IV PRN (12:03)
--- NOTE | 2016-11-05 12:26 | Nephrology Progress Note ---
Date of Encounter: 11/05/16 Time of Encounter: 11:55 - Assessment and Plan (1) ESRD (end stage renal disease) on dialysis Current Visit: Yes Status: Chronic Blood culture positive for gram positive cocci, Staphylococcus and MRSA. Will do HD today, orders given, then DC permacath. Rest 2 days and have new HD line placed. Subjective Principal diagnosis: Respiratory failure, hypotension, bacteremia Interval history: Trach to vent. Opens eyes when name called. Nods head yes/no. Objective - Vital Signs Vital signs: Vital Signs Temp Pulse Resp BP Pulse Ox 11/05/16 11:29 98.3 F 11/05/16 09:52 14 99 11/05/16 09:00 101 14 103/73 99 11/05/16 08:22 103 19 105/76 97 11/05/16 08:00 108 11/05/16 07:33 98.1 F 11/05/16 07:00 108 19 101/81 98 11/05/16 06:00 109 22 106/74 98 11/05/16 05:39 22 103/71 100 11/05/16 05:00 109 22 108/71 100 11/05/16 04:00 98.0 F 85 16 120/81 100 11/05/16 03:49 15 114/89 100 11/05/16 03:00 91 18 117/88 100 11/05/16 02:00 94 17 107/71 100 11/05/16 01:19 16 111/78 100 11/05/16 01:00 85 18 109/76 100 11/05/16 00:00 98.2 F 98 14 108/82 99 11/04/16 23:00 100 20 112/83 99 11/04/16 22:45 27 125/102 100 11/04/16 22:21 28 96 11/04/16 22:00 122 18 113/82 96 11/04/16 21:00 100 24 105/68 94 L 11/04/16 20:00 98.7 F 120 22 121/96 94 L 11/04/16 19:00 110 26 110/74 97 11/04/16 18:15 112 20 84/57 93 L 11/04/16 17:36 115 20 97/62 99 11/04/16 16:28 98.7 F 123 18 104/82 99 11/04/16 16:07 98.7 F 11/04/16 15:49 20 84/57 100 11/04/16 14:30 108 18 103/71 99 11/04/16 13:42 146 18 111/76 98 11/04/16 12:30 97 20 95/57 100 Intake and Output 11/04/16 11/05/16 11/05/16 23:59 07:59 15:59 Intake Total 112 / 112 539 / 539 260 / 260 Output Total 0 / 0 0 / 0 25 / 25 Balance 112 / 112 539 / 539 235 / 235 Intake: IV Fluids 150 / 150 INVanz 500 MG In 0.9 % 100 / 100 Sodium Chloride (Mini-Bag +) 100 ML @ 100 mls/hr IVPB DAILY [facility] Rx#: [id number] Diflucan 100 MG/50 ML 100 50 / 50 mg In 50 ml @ 50 mls/hr IVPB DAILY [place] Rx#: [id number] Tube Feeding 112 / 112 389 / 389 210 / 210 Free Water 50 / 50 Output: Urine 0 / 0 0 / 0 0 / 0 Urethral (Roberts) 0 / 0 0 / 0 0 / 0 Catheter 0 / 0 25 / 25 Other: Stool Size Small Stool Consistency soft Stool Color Brown # Bowel Movements 1 Blood Glucose* 156 - General Appearance General appearance: Present: well-developed, well-nourished, appears started age , obese EENT: Present: mucous membranes moist Neck: Present: no JVD Respiratory: Present: clear Cardiology: Present: no edema, irregular rhythm Gastrointestinal: Present: normoactive bowel sounds, no tenderness Integumentary: Present: warm and dry Psychiatric: Present: mood/affect appropriate, cooperative - Lab 11/05/16 04:30 11/05/16 04:30 Most recent lab results ABG pH 7.45 pH Units (7.32-7.45) 11/02/16 05:18 ABG pCO2 45 mmHg (35-45) 11/02/16 05:18 ABG pO2 105 mmHg (85-104) H 11/02/16 05:18 ABG HCO3 31.3 mEQ/L (21-27) H 11/02/16 05:18 ABG O2 Saturation 98 % (95-98) 11/02/16 05:18 Calcium 9.6 mg/dL (8.6-10.8) 11/05/16 04:30 Phosphorus 4.4 mg/dL (2.3-4.7) 11/02/16 04:45 Magnesium 2.6 mg/dL (1.6-2.6) 11/02/16 04:45 Consult Discharge Plan - Plan Referrals: Jon Hernandez MD [Primary Care Provider] -
[2016-11-05] MEDS ORDERED: 0.9 % Sodium Chloride 2,000 ML ONE (12:41)
[2016-11-05] MEDS ORDERED: Chlorhexidine Rinse 15 ML MOUTHWASH MM SCH ×2 (13:15→21:00)
--- NOTE | 2016-11-05 14:35 | Event Note ---
Date of Encounter: 11/05/16 Time of Encounter: 14:30 Patient examined, chart and all data reviewed as well as imaging studies. I have reviewed Dr. Haddad's comprehensive progress note in the patient's management was rear also reviewed in detail during multidisciplinary critical care rounds. Patient has chronic respiratory failure in part due to underlying renal disease cardiac dysfunction. She has been successfully transitioned off ventilatory support to a trach mask. His anticipated that this time, the patient will not require nocturnal ventilatory support although to my recollection this is been an issue in the past due to hypoventilation Given staph epi bacteremia, this is more likely related to the patient's tunneled catheter for provision of dialysis. Repeat blood cultures will be obtained. If blood cultures remain positive then that line will definitely need to be removed however if cultures are free of bacteria than perhaps line has been sufficiently sterilized such that it does not need to be removed/ replaced at this time. Continue all medical measures as outlined. The patient may transition to a non-critical care bed is available at this time.
[2016-11-05] MEDS ORDERED: *HR* Warfarin 2.5 MG TABLET PO SCH (18:00)
[2016-11-05] MEDS ORDERED: Naloxone 0.4 MG/ML INJ IVP PRN (18:21)
[2016-11-05] MEDS ORDERED: Warfarin perPT PO PRN (18:21)
[2016-11-05] MEDS ORDERED: Norepinephrine 4 MG in D5% in Water 250 ML IVC SCH (18:21)
[2016-11-05] MEDS ORDERED: Ondansetron 4 MG/2 ML VIAL IVP PRN (18:21)
[2016-11-05] MEDS ORDERED: GuaiFENesin Liq 200 MG/10 ML UDC GTUBE PRN (21:49)
[2016-11-06] MEDS ORDERED: Hydrocortisone Sodium Succ 100 MG/2 ML VIAL IVP SCH
[2016-11-06] MEDS: Ipratropium/Albuterol Neb 3 ML IH SCH (03:47)
[2016-11-06 06:19] LABS: Hematocrit 31.7 % (35.3-44.9); Hemoglobin 9.6 g/dL (11.5-15.4); Immature Granulocytes % 0.7 % (0-4); Lymphocytes # 0.9 K/mcL (0.6-4.6); Lymphocytes % 11.3 %; Mean Corpuscular HGB Conc 30.3 g/dL (31.6-35.5); Mean Corpuscular Hemoglobin 28.6 pg (28.0-33.3); Mean Corpuscular Volume 94.3 fL (83.0-100.0); Mean Platelet Volume 12.1 fL (9.4-12.4); Monocytes # 0.6 K/mcL (0.0-1.3); Monocytes % 7.7 %; Neutrophils # 6.6 K/mcL (1.6-8.9); Nucleated Red Blood Cells 0.2 /100 WBC (0); Platelet Count 260 K/mcL (140-400); Red Blood Count 3.36 M/mcL (3.82-4.97); Red Cell Distribution Width 15.3 % (11.5-14.5); Segmented Neutrophils % 80.3 %
[2016-11-06 06:21] LABS: Prothrombin Time 33.1 Seconds (9.4-12.1)
[2016-11-06 06:30] LABS: Calcium 9.4 mg/dL (8.6-10.8); Potassium 4.2 mEq/L (3.5-4.5)
--- NOTE | 2016-11-06 07:53 | Nephrology Progress Note ---
Date of Encounter: 11/06/16 Time of Encounter: 07:51 - Assessment and Plan (1) ESRD (end stage renal disease) on dialysis Current Visit: Yes Status: Chronic The patient is also on resistant staph epidermidis bacteremia. 1 recommend removing the tunneled dialysis catheter. The patient should have a catheter holiday for several days and then have another catheter placed. In the meantime continue antibiotics. Her Coumadin will have to be placed on hold until a new catheter has been placed. (2) Acute and chronic respiratory failure Current Visit: Yes Status: Acute Qualifiers: Respiratory failure complication: unspecified whether with hypoxia or hypercapnia Qualified Code(s): J96.20 - Acute and chronic respiratory failure , unspecified whether with hypoxia or hypercapnia (3) Hypotension Current Visit: Yes Status: Acute Qualifiers: Hypotension type: other hypotension type Qualified Code(s): I95.89 - Other hypotension (4) Chronic a-fib Current Visit: Yes Status: Chronic Subjective Principal diagnosis: Respiratory failure, hypotension, bacteremia Interval history: Patient remains poorly responsive. Blood pressure seems to be improved. Blood cultures are growing methicillin-resistant staph epidermidis. Objective - Vital Signs Vital signs: Vital Signs Temp Pulse Resp BP Pulse Ox 11/06/16 07:00 98.2 F 105 18 97/64 96 11/06/16 03:47 24 96 11/06/16 03:04 97.6 F 19 126/85 96 11/05/16 23:31 98.8 F 112 20 122/73 95 11/05/16 22:10 28 94 L 11/05/16 21:00 98 11/05/16 19:35 96 11/05/16 19:26 98 F 108 22 115/68 97 11/05/16 17:15 20 109/76 11/05/16 17:00 109/76 11/05/16 16:45 108/72 11/05/16 16:30 109/76 11/05/16 16:15 100/73 11/05/16 16:00 88 18 112/71 99 11/05/16 15:45 113/81 11/05/16 15:41 16 98 11/05/16 15:30 109/76 11/05/16 15:26 97.4 F L 11/05/16 15:15 110/75 11/05/16 15:00 99 16 100/76 98 11/05/16 14:45 112/79 11/05/16 14:30 109/76 11/05/16 14:15 107/87 11/05/16 14:00 -160 F L 92 14 113/77 100 11/05/16 13:00 99 21 107/75 99 11/05/16 12:30 97 11/05/16 12:00 99 22 113/78 99 11/05/16 11:29 98.3 F 11/05/16 11:00 96 22 115/82 99 11/05/16 10:00 100 14 115/76 22 L 11/05/16 09:52 14 99 11/05/16 09:00 101 14 103/73 99 11/05/16 08:22 103 19 105/76 97 11/05/16 08:00 108 Intake and Output 11/05/16 11/05/16 11/06/16 15:59 23:59 07:59 Intake Total 860 / 860 30 / 30 Output Total 2600 / 2600 Balance 835 / 835 -2570 / -2570 Intake: Oral 0 / 0 Tube Feeding 210 / 210 Free Water 50 / 50 Intake, Rinseback and 600 / 600 Flushes Free Water Intake Amount 30 / 30 Output: Urine 0 / 0 0 / 0 Urethral (Roberts) 0 / 0 0 / 0 Total Dialysis Output 2600 / 2600 Catheter Other: Weight 102 kg 102.3 kg Blood Glucose* 156 127 145 Hemodialysis Net Fluid 1400 2600 Removed (mL) Patient Weight 11/06/16 23:59 Weight 102.3 kg - General Appearance Exam: Patient is unresponsive. Trach collars and place. She is in no acute distress. Lungs coarse breath sounds. Heart irregular rate and rhythm. Abdomen is soft. Bowel bowel sounds are present. Feeding tube is in place. She has some lower extremity swelling. There is a tunneled dialysis catheter in the right chest. - Lab 11/06/16 05:44 11/06/16 05:44 Most recent lab results ABG pH 7.45 pH Units (7.32-7.45) 11/02/16 05:18 ABG pCO2 45 mmHg (35-45) 11/02/16 05:18 ABG pO2 105 mmHg (85-104) H 11/02/16 05:18 ABG HCO3 31.3 mEQ/L (21-27) H 11/02/16 05:18 ABG O2 Saturation 98 % (95-98) 11/02/16 05:18 Calcium 9.4 mg/dL (8.6-10.8) 11/06/16 05:44 Phosphorus 4.4 mg/dL (2.3-4.7) 11/02/16 04:45 Magnesium 2.6 mg/dL (1.6-2.6) 11/02/16 04:45 Consult Discharge Plan - Plan Referrals: Jon Hernandez MD [Primary Care Provider] -
[2016-11-06] MEDS: Metoclopramide 10 MG/10 ML UD.LIQ GTUBE SCH (08:47)
[2016-11-06] MEDS: Fluconazole 100 MG/50 ML 100 MG/50 ML BAG IVPB SCH (08:47)
[2016-11-06] MEDS: OLANZapine 5 MG TAB.RAPDIS PO SCH (08:48)
[2016-11-06] MEDS ORDERED: Levothyroxine Sodium 100 MCG VIAL IVP SCH (09:00)
[2016-11-06] MEDS ORDERED: Pantoprazole 40 MG VIAL IVP SCH (09:00)
[2016-11-06] MEDS ORDERED: Ertapenem 500 MG in 0.9 % Sodium Chloride Mini Bag 100 ML IVPB SCH (09:00)
--- NOTE | 2016-11-06 09:43 | Internal Med Progress Note ---
Date of Encounter: 11/06/16 Time of Encounter: 09:27 - Assessment and plan (1) Sepsis Current Visit: Yes Status: Acute Assessment and plan: MRSE bacteremia and ESBL Ecoli UTI. Patient with ESRD on HD with permacath. 11/01: blood culture grew MRSE /2 bottles 11/01: urine grew ESBL E coli 11/05: blood cultures ordered. 11/06: blood cultures ordered. Completed 5 days of IV Vancomycin. Continue IV Ertapenem and Fluconazole until . requiring midodrine. Plan to remove permacath today and have a vacation time. Repeat blood culture. Qualifiers: Sepsis type: sepsis due to unspecified organism Qualified Code(s): A41.9 - Sepsis, unspecified organism (2) Bacteremia Current Visit: Yes Status: Acute Assessment and plan: MRSE bacteremia plan as above (3) UTI (urinary tract infection) Current Visit: Yes Status: Suspected Assessment and plan: Ecoli ESBL plan as above Qualifiers: Urinary tract infection type: site unspecified Hematuria presence: without hematuria Qualified Code(s): N39.0 - Urinary tract infection, site not specified (4) Acute and chronic respiratory failure Current Visit: Yes Status: Acute Assessment and plan: She has a tracheotomy that she received last March, trach collar at [facility]. Patient reportedly had desaturation event into the 80s prior to arrival to [place]. Acute event secondary to sepsis and COPD exacerbation. 10/06: patient with copious secretions coming thru tracheostomy and has diffuse wheezes. 5L trach collar. transfer to to keep suctioning every hour. Increase nebulizations. Add mucomyst, and mucinex. tracheal culture and CXR ordered. Qualifiers: Respiratory failure complication: unspecified whether with hypoxia or hypercapnia Qualified Code(s): J96.20 - Acute and chronic respiratory failure , unspecified whether with hypoxia or hypercapnia (5) ESRD (end stage renal disease) on dialysis Current Visit: Yes Status: Chronic Assessment and plan: Nephrology is following. Patient had HD yesterday. (6) Chronic a-fib Current Visit: Yes Status: Chronic Assessment and plan: heart rate is not controlled. change albuterol to xopenex. not on any medication to control heart rate due to low BP holding coumadin to have permcath removal. (7) Counseling regarding advanced care planning and goals of care Current Visit: Yes Status: Acute Assessment and plan: Palliative service consulted. - Subjective Interval history: patient is non verbal. She is able to move her head for yes and no questions. she answers yes to pain all over - Constitutional Vitals: Temp Pulse Resp BP Pulse Ox 98.2 F 105 18 97/64 96 11/06/16 07:00 11/06/16 07:00 11/06/16 07:00 11/06/16 07:00 11/06/16 07:00 General appearance: Present: A&O X 0, no acute distress. Absent: answers questions appropriately (non-verbal) - ENT Additional comments: trachea shield in place: clear copious secretions coming thru. severe cough - Respiratory Respiratory exam: Present: decreased breath sounds, rhonchi - Cardiovascular Cardiovascular exam: Present: tachycardia - GI/Abdominal GI/Abdominal exam: Present: normal bowel sounds, soft. Absent: distended, tenderness - Back Exam Back exam: Absent: CVA tenderness (L), CVA tenderness (R) - Neurological Exam Neurological exam: Present: alert Additional comments: patient is non verbal, able to move head to answer yes and no question. very weak - Skin Skin exam: Absent: rash Internal Medicine: Result - Labs CBC & Chem 7: 11/06/16 05:44 11/06/16 05:44 Labs: Short CBC 11/06/16 Range/Units 05:44 WBC 8.2 (4.3-11.1) K/mcL Hgb 9.6 L (11.5-15.4) g/dL Hct 31.7 L (35.3-44.9) % Plt Count 260 (140-400) K/mcL Neutrophils # 6.6 (1.6-8.9) K/mcL BMP 11/06/16 05:44 Sodium 134 L Potassium 4.2 Chloride 97 L Carbon Dioxide 24 BUN 51 H Creatinine 2.52 H Glucose 152 H Calcium 9.4 - ABG Interpretation ABG results: ABG ABG pH 7.45 pH Units (7.32-7.45) 11/02/16 05:18 ABG pCO2 45 mmHg (35-45) 11/02/16 05:18 ABG pO2 105 mmHg (85-104) H 11/02/16 05:18 ABG O2 Saturation 98 % (95-98) 11/02/16 05:18 PT/INR, D-dimer PT 33.1 Seconds (9.4-12.1) H 11/06/16 05:44 Consult Discharge Plan - Plan Referrals: Jon Hernandez MD [Primary Care Provider] - (will follow up at the [facility])
[2016-11-06] MEDS: Ipratropium Neb 0.5 MG NEBULIZER IH SCH ×3 (10:46→21:53)
[2016-11-06] MEDS: Acetylcysteine 10% 2 ML INHSOL IH SCH ×3 (10:46→21:54)
[2016-11-06] MEDS: Levalbuterol Neb 1.25 MG/3 ML IH SCH ×3 (10:46→21:53)
[2016-11-06] MEDS ORDERED: 0.9 % Sodium Chloride 250 ML ONE ×2 (11:00→12:17)
[2016-11-06] MEDS ORDERED: Ipratropium/Albuterol Neb 3 ML IH SCH (12:00)
--- NOTE | 2016-11-06 14:42 | IR Procedure Note ---
Date of procedure: 11/06/16 Consent Obtained: Verbal consent Timeout: Correct patient and procedure verified, Correct site verified, Time out performed, Skin prep completed Local anesthetic: Lidocaine 1% Indications: Bacteremia, concern for catheter as source. Procedure Performed: Perm cath removal Site/Technique: Perm cath removed without difficulty. Results/Findings: Successfully removed with cuff as well. Estimated blood loss (cc): 3 Complications: None; Tolerated procedure well Post Procedure Treatment Plan: Monitoring in pts room
[2016-11-06] MEDS ORDERED: *HR* Warfarin 2.5 MG TABLET PO SCH (18:00)
[2016-11-07] MEDS: Ipratropium Neb 0.5 MG NEBULIZER IH SCH ×4 (03:48→21:53)
[2016-11-07] MEDS: Levalbuterol Neb 1.25 MG/3 ML IH SCH ×4 (03:48→21:53)
[2016-11-07] MEDS: Acetylcysteine 10% 2 ML INHSOL IH SCH ×3 (03:49→21:53)
[2016-11-07 04:54] LABS: Basophils % 0.2 %; Eosinophils % 0.2 %; Hematocrit 32.1 % (35.3-44.9); Hemoglobin 9.6 g/dL (11.5-15.4); Immature Granulocytes % 1.1 % (0-4); Lymphocytes # 2.5 K/mcL (0.6-4.6); Lymphocytes % 27.1 %; Mean Corpuscular HGB Conc 29.9 g/dL (31.6-35.5); Mean Corpuscular Hemoglobin 27.9 pg (28.0-33.3); Mean Corpuscular Volume 93.3 fL (83.0-100.0); Mean Platelet Volume 11.5 fL (9.4-12.4); Monocytes # 1.5 K/mcL (0.0-1.3); Monocytes % 16.1 %; Neutrophils # 5.1 K/mcL (1.6-8.9); Nucleated Red Blood Cells 0.4 /100 WBC (0); Platelet Count 287 K/mcL (140-400); Red Blood Count 3.44 M/mcL (3.82-4.97); Red Cell Distribution Width 15.6 % (11.5-14.5); Segmented Neutrophils % 55.3 %
[2016-11-07 04:56] LABS: INR 2.3; Prothrombin Time 25.5 Seconds (9.4-12.1)
[2016-11-07 05:07] LABS: Albumin 2.9 g/dL (3.5-5.0); Albumin/Globulin Ratio 0.7 (1.1-2.2); Bilirubin,Total 0.6 mg/dL (0.2-1.2); Calcium 9.3 mg/dL (8.6-10.8); Globulin 4.1 g/dL (2.4-3.5); Potassium 3.9 mEq/L (3.5-4.5)
[2016-11-07] MEDS: Metoclopramide 10 MG/10 ML UD.LIQ GTUBE SCH (07:36)
[2016-11-07] MEDS: OLANZapine 5 MG TAB.RAPDIS PO SCH (07:37)
--- NOTE | 2016-11-07 08:06 | Nephrology Progress Note ---
Date of Encounter: 11/07/16 Time of Encounter: 08:04 - Assessment and Plan (1) ESRD (end stage renal disease) on dialysis Current Visit: Yes Status: Chronic The patient has methicillin resistant staph epidermidis bacteremia. The tunnel dialysis catheter was removed yesterday. If blood cultures from November 05 remain negative we will requested interventional radiology place a new tunneled dialysis catheter tomorrow. In the meantime she continues on antibiotics. Her Coumadin has been placed on hold. (2) Acute and chronic respiratory failure Current Visit: Yes Status: Acute Qualifiers: Respiratory failure complication: unspecified whether with hypoxia or hypercapnia Qualified Code(s): J96.20 - Acute and chronic respiratory failure , unspecified whether with hypoxia or hypercapnia (3) Hypotension Current Visit: Yes Status: Acute Qualifiers: Hypotension type: other hypotension type Qualified Code(s): I95.89 - Other hypotension (4) Chronic a-fib Current Visit: Yes Status: Chronic Subjective Principal diagnosis: Respiratory failure, hypotension, bacteremia Interval history: Patient remains poorly responsive. The patient is hemodynamically stable. The tunnel dialysis catheter was removed yesterday. Blood cultures from November 05 remain negative. Objective - Vital Signs Vital signs: Vital Signs Temp Pulse Resp BP Pulse Ox 11/07/16 07:11 97.2 F L 88 18 105/87 100 11/07/16 04:41 97.5 F L 90 20 107/78 96 11/07/16 03:51 16 97 11/07/16 01:28 102 20 97 11/07/16 00:32 98.1 F 105 20 113/84 97 11/06/16 22:04 97.6 F 100 18 119/80 98 11/06/16 21:57 22 98 11/06/16 21:52 97.6 F 84 17 119/80 98 11/06/16 17:09 97.6 F 112 18 112/83 91 L 11/06/16 15:49 113/74 99 11/06/16 13:05 98.2 F 98 18 118/63 95 11/06/16 12:45 97.8 F 95 18 123/80 11/06/16 12:31 97.9 F 115 18 119/84 96 11/06/16 11:30 97.9 F 115 18 119/84 96 11/06/16 11:15 98.5 F 80 18 117/80 97 11/06/16 11:13 97.8 F 118 18 127/87 94 L 11/06/16 10:47 18 96 Intake and Output 11/06/16 11/07/16 11/07/16 23:59 07:59 15:59 Intake Total 0 / 0 0 / 0 Output Total 0 / 0 Balance 0 / 0 0 / 0 Intake: Oral 0 / 0 Free Water Intake Amount 0 / 0 0 / 0 Output: Urine 0 / 0 Other: Weight 102.6 kg Blood Glucose* 114 101 Patient Weight 11/07/16 23:59 Weight 102.6 kg - General Appearance Exam: Patient is poorly responsive. Trach collar is in place. Lungs coarse breath sounds. Heart irregular rate and rhythm consistent with atrial fibrillation. Abdomen is soft. PEG tube is in place. Patient has lower extremity swelling. - Lab 11/07/16 04:07 11/07/16 04:07 Most recent lab results ABG pH 7.45 pH Units (7.32-7.45) 11/02/16 05:18 ABG pCO2 45 mmHg (35-45) 11/02/16 05:18 ABG pO2 105 mmHg (85-104) H 11/02/16 05:18 ABG HCO3 31.3 mEQ/L (21-27) H 11/02/16 05:18 ABG O2 Saturation 98 % (95-98) 11/02/16 05:18 Calcium 9.3 mg/dL (8.6-10.8) 11/07/16 04:07 Phosphorus 4.4 mg/dL (2.3-4.7) 11/02/16 04:45 Magnesium 2.6 mg/dL (1.6-2.6) 11/02/16 04:45 Consult Discharge Plan - Plan Referrals: Jon Hernandez MD [Primary Care Provider] - (will follow up at the [facility])
[2016-11-07] MEDS: Fluconazole 100 MG/50 ML 100 MG/50 ML BAG IVPB SCH (10:16)
--- NOTE | 2016-11-07 10:39 | Internal Med Progress Note ---
Date of Encounter: 11/07/16 Time of Encounter: 10:15 - Assessment and plan (1) Sepsis Current Visit: Yes Status: Acute Assessment and plan: MRSE bacteremia and ESBL Ecoli UTI. Patient with ESRD on HD with permacath. 11/01: blood culture grew MRSE 10/18 bottles 11/01: urine grew ESBL E coli 11/05: blood cultures negative so far. Completed 5 days of IV Vancomycin. 11/06: Had removal of permacath. blood cultures taken. sepsis has resolved. Continue IV Ertapenem and Fluconazole until 11/08. requiring midodrine. Qualifiers: Sepsis type: sepsis due to unspecified organism Qualified Code(s): A41.9 - Sepsis, unspecified organism (2) Bacteremia Current Visit: Yes Status: Acute Assessment and plan: MRSE bacteremia plan as above (3) UTI (urinary tract infection) Current Visit: Yes Status: Suspected Assessment and plan: Ecoli ESBL plan as above Qualifiers: Urinary tract infection type: site unspecified Hematuria presence: without hematuria Qualified Code(s): N39.0 - Urinary tract infection, site not specified (4) Acute and chronic respiratory failure Current Visit: Yes Status: Acute Assessment and plan: She has a tracheotomy that she received last March, collar at [facility]. Patient reportedly had desaturation event into the 80s prior to arrival to [place]. Acute event secondary to sepsis and COPD exacerbation. 11/06: patient with copious secretions coming thru tracheostomy and has diffuse wheezes. 5L trach collar. CXR showed no acute infiltrate. tracheal culture taken. continue tracheal suctioning prn. nebulizations. mucomyst mucinex. Qualifiers: Respiratory failure complication: unspecified whether with hypoxia or hypercapnia Qualified Code(s): J96.20 - Acute and chronic respiratory failure , unspecified whether with hypoxia or hypercapnia (5) ESRD (end stage renal disease) on dialysis Current Visit: Yes Status: Chronic Assessment and plan: Nephrology is following. Permacath was removed 11/07 due to MRSE bacteremia. If follow-up blood cultures are negative, plan for placement of new dialysis catheter tomorrow. (6) Chronic a-fib Current Visit: Yes Status: Chronic Assessment and plan: heart rate is adequate holding coumadin for possible placement of new permacath tomorrow. (7) Counseling regarding advanced care planning and goals of care Current Visit: Yes Status: Acute Assessment and plan: Palliative service consulted. - Subjective Interval history: patient is non verbal. She is able to move her head for yes and no questions. she answers no pain. - Constitutional Vitals: Temp Pulse Resp BP Pulse Ox 97.2 F L 87 18 105/87 98 11/07/16 07:11 11/07/16 08:13 11/07/16 07:11 11/07/16 07:11 11/07/16 08:13 General appearance: Present: A&O X 0, no acute distress. Absent: answers questions appropriately (non-verbal) Exam: patient moves her extremities to command. - ENT ENT exam: Present: mucous membranes dry Additional comments: tracheostomy with minimal secretions. - Respiratory Respiratory exam: Present: rhonchi - Cardiovascular Cardiovascular exam: Present: RRR - GI/Abdominal GI/Abdominal exam: Present: normal bowel sounds, soft. Absent: distended, tenderness - Extremities Exam Extremities exam: Present: pedal edema - Skin Skin exam: Absent: rash Internal Medicine: Result - Labs CBC & Chem 7: 11/07/16 04:07 11/07/16 04:07 Labs: Short CBC 11/07/16 Range/Units 04:07 WBC 9.2 (4.3-11.1) K/mcL Hgb 9.6 L (11.5-15.4) g/dL Hct 32.1 L (35.3-44.9) % Plt Count 287 (140-400) K/mcL Neutrophils # 5.1 (1.6-8.9) K/mcL BMP 11/07/16 04:07 Sodium 137 Potassium 3.9 Chloride 97 L Carbon Dioxide 28 BUN 75 H D Creatinine 3.10 H Glucose 90 Calcium 9.3 Liver Function 11/07/16 Range/Units 04:07 Total Bilirubin 0.6 (0.2-1.2) mg/dL AST 19 (5-34) Units/L ALT 14 (0-55) Units/L Alkaline Phosphatase 196 H (38-126) Units/L Albumin 2.9 L (3.5-5.0) g/dL - ABG Interpretation ABG results: ABG ABG pH 7.45 pH Units (7.32-7.45) 11/02/16 05:18 ABG pCO2 45 mmHg (35-45) 11/02/16 05:18 ABG pO2 105 mmHg (85-104) H 11/02/16 05:18 ABG O2 Saturation 98 % (95-98) 11/02/16 05:18 PT/INR, D-dimer PT 25.5 Seconds (9.4-12.1) H 11/07/16 04:07 - Impressions Impressions Tunnelled Catheter Removal 11/06/16 00:00 IMPRESSION: Successful tunneled catheter removal as above. D/ / Sacha Jaimes MD / Sacha Jaimes MD Interpreting Provider: Sacha Jaimes MD Chest X-Ray 11/06/16 09:51 IMPRESSION: Stable examination other than removal of dialysis catheter. Cardiomegaly with small bilateral pleural effusions. No overt alveolar pulmonary edema. D/ / Wale Askew MD / Wale Askew MD Interpreting Provider: Wale Askew MD Consult Discharge Plan - Plan Referrals: Jon Hernandez MD [Primary Care Provider] - (will follow up at the [facility])
[2016-11-08 05:07] LABS: INR 1.8; Prothrombin Time 19.9 Seconds (9.4-12.1)
[2016-11-08] MEDS: Ipratropium Neb 0.5 MG NEBULIZER IH SCH ×4 (05:08→22:21)
[2016-11-08] MEDS: Levalbuterol Neb 1.25 MG/3 ML IH SCH ×4 (05:09→22:21)
[2016-11-08 06:13] LABS: Basophils % 0.1 %; Eosinophils # 0.1 K/mcL (0.0-0.6); Eosinophils % 0.9 %; Hematocrit 32.1 % (35.3-44.9); Hemoglobin 9.9 g/dL (11.5-15.4); Immature Granulocytes % 1.3 % (0-4); Immature Platelets 4.7 % (1.1-6.1); Lymphocytes % 20.3 %; Mean Corpuscular HGB Conc 30.8 g/dL (31.6-35.5); Mean Corpuscular Hemoglobin 28.8 pg (28.0-33.3); Mean Corpuscular Volume 93.3 fL (83.0-100.0); Monocytes # 1.1 K/mcL (0.0-1.3); Monocytes % 11.2 %; Neutrophils # 6.6 K/mcL (1.6-8.9); Nucleated Red Blood Cells 0.2 /100 WBC (0); Platelet Count 298 K/mcL (140-400); Red Blood Count 3.44 M/mcL (3.82-4.97); Red Cell Distribution Width 15.7 % (11.5-14.5); Segmented Neutrophils % 66.2 %
[2016-11-08 06:49] LABS: Albumin 2.7 g/dL (3.5-5.0); Albumin/Globulin Ratio 0.7 (1.1-2.2); Bilirubin,Total 0.5 mg/dL (0.2-1.2); Calcium 9.3 mg/dL (8.6-10.8); Potassium 4.4 mEq/L (3.5-4.5); Total Protein 6.7 g/dL (6.0-8.3)
--- NOTE | 2016-11-08 08:17 | Nephrology Progress Note ---
Date of Encounter: 11/08/16 Time of Encounter: 08:16 - Assessment and Plan (1) ESRD (end stage renal disease) on dialysis Current Visit: Yes Status: Chronic The patient has methicillin resistant staph epidermidis bacteremia. The catheter tip culture is positive. Blood cultures for break and remain negative. The patient should be able to have a tunnel dialysis catheter replaced today and then we can resume hemodialysis. Her Coumadin can be resumed tomorrow. (2) Acute and chronic respiratory failure Current Visit: Yes Status: Acute Qualifiers: Respiratory failure complication: unspecified whether with hypoxia or hypercapnia Qualified Code(s): J96.20 - Acute and chronic respiratory failure , unspecified whether with hypoxia or hypercapnia (3) Hypotension Current Visit: Yes Status: Acute Qualifiers: Hypotension type: other hypotension type Qualified Code(s): I95.89 - Other hypotension (4) Chronic a-fib Current Visit: Yes Status: Chronic Subjective Principal diagnosis: Respiratory failure, hypotension, bacteremia Interval history: The patient remains poorly responsive. She is hemodynamically stable. Blood cultures from the and 06 of November remain negative. Catheter tip culture is positive. Patient should be able to have a tunnel dialysis catheter placed today and we can go ahead and resume dialysis. In meantime she will continue on antibiotics. Objective - Vital Signs Vital signs: Vital Signs Temp Pulse Resp BP Pulse Ox 11/08/16 07:14 97.4 F L 96 18 114/80 99 11/08/16 00:40 97.7 F 96 17 111/69 95 11/08/16 00:39 97 18 98 11/07/16 21:54 94 18 98 11/07/16 18:44 97.0 F L 89 14 108/73 98 11/07/16 17:28 88 98 11/07/16 16:25 97.1 F L 82 18 110/71 99 11/07/16 15:37 18 100 11/07/16 15:13 92 100 11/07/16 12:31 86 100 11/07/16 11:19 97.5 F L 80 18 118/82 100 11/07/16 10:59 18 100 11/07/16 10:36 89 100 Intake and Output 11/07/16 11/08/16 11/08/16 23:59 07:59 15:59 Intake Total 40 / 40 40 / 40 Balance 40 / 40 40 / 40 Intake: Free Water Intake Amount Other: # Voids 1 1 Blood Glucose* 99 110 - General Appearance Exam: Patient is poorly responsive. She is in no acute distress. Trach collars in place. Lungs coarse breath sounds. Heart irregular rate and rhythm. Abdomen soft. PEG tube is in place. There is lower extremity swelling. - Lab 11/08/16 03:53 11/08/16 03:53 Most recent lab results ABG pH 7.45 pH Units (7.32-7.45) 11/02/16 05:18 ABG pCO2 45 mmHg (35-45) 11/02/16 05:18 ABG pO2 105 mmHg (85-104) H 11/02/16 05:18 ABG HCO3 31.3 mEQ/L (21-27) H 11/02/16 05:18 ABG O2 Saturation 98 % (95-98) 11/02/16 05:18 Calcium 9.3 mg/dL (8.6-10.8) 11/08/16 03:53 Phosphorus 4.4 mg/dL (2.3-4.7) 11/02/16 04:45 Magnesium 2.6 mg/dL (1.6-2.6) 11/02/16 04:45 Consult Discharge Plan - Plan Referrals: Jon Hernandez MD [Primary Care Provider] - (will follow up at the [facility])
[2016-11-08] MEDS ORDERED: 0.9 % Sodium Chloride 250 ML IV PRN (08:18)
[2016-11-08] MEDS ORDERED: Vancomycin 1 EACH in D5% in Water 250 ML IVPB SCH (09:00)
[2016-11-08] MEDS ORDERED: Vancomycin 1,500 MG in D5% in Water 250 ML IVPB ONE (09:21)
[2016-11-08] MEDS: Metoclopramide 10 MG/10 ML UD.LIQ GTUBE SCH (09:30)
[2016-11-08] MEDS: OLANZapine 5 MG TAB.RAPDIS PO SCH (09:30)
[2016-11-08] MEDS: Fluconazole 100 MG/50 ML 100 MG/50 ML BAG IVPB SCH (09:30)
[2016-11-08] MEDS: Acetylcysteine 10% 2 ML INHSOL IH SCH ×3 (11:05→22:21)
--- NOTE | 2016-11-08 17:38 | Internal Med Progress Note ---
Date of Encounter: 11/08/16 Time of Encounter: 16:00 - Assessment and plan (1) Sepsis Current Visit: Yes Status: Acute Assessment and plan: MRSE bacteremia and ESBL Ecoli UTI. Patient with ESRD on HD with permacath. 11/01: blood culture grew MRSE /2 bottles 11/01: urine grew ESBL E coli 11/05: Central venous dialysis catheter tip grew MRSE. peripheral blood cultures negative so far. Completed 5 days of IV Vancomycin. 11/06: Had removal of permacath. blood cultures negative so far sepsis has resolved. Last dose of IV Ertapenem and Fluconazole today. requiring midodrine. Qualifiers: Sepsis type: sepsis due to unspecified organism Qualified Code(s): A41.9 - Sepsis, unspecified organism (2) Bacteremia Current Visit: Yes Status: Acute Assessment and plan: MRSE bacteremia plan as above (3) UTI (urinary tract infection) Current Visit: Yes Status: Suspected Assessment and plan: Ecoli ESBL plan as above Qualifiers: Urinary tract infection type: site unspecified Hematuria presence: without hematuria Qualified Code(s): N39.0 - Urinary tract infection, site not specified (4) Acute and chronic respiratory failure Current Visit: Yes Status: Acute Assessment and plan: She has a tracheotomy that she received last March, trach collar at [facility]. Patient reportedly had desaturation event into the 80s prior to arrival to [place]. Acute event secondary to sepsis and COPD exacerbation. 11/06: patient with copious secretions coming thru tracheostomy and has diffuse wheezes. 5L trach collar. CXR showed no acute infiltrate. tracheal culture taken. continue tracheal suctioning prn. nebulizations. mucomyst mucinex. CXR in AM Qualifiers: Respiratory failure complication: unspecified whether with hypoxia or hypercapnia Qualified Code(s): J96.20 - Acute and chronic respiratory failure , unspecified whether with hypoxia or hypercapnia (5) ESRD (end stage renal disease) on dialysis Current Visit: Yes Status: Chronic Assessment and plan: Nephrology is following. Permacath was removed 11/05 due to MRSE bacteremia. Follow up peripheral blood cultures are negative so far. Plan for placement of Permacath by IR in AM if INR adequate. (6) Chronic a-fib Current Visit: Yes Status: Chronic Assessment and plan: heart rate is adequate holding coumadin for possible placement of new permacath tomorrow. (7) Counseling regarding advanced care planning and goals of care Current Visit: Yes Status: Acute Assessment and plan: Palliative service consulted. - Subjective Interval history: patient is non verbal. She is able to move her head for yes and no questions. she has no complaints. - Constitutional Vitals: Temp Pulse Resp BP Pulse Ox 97.4 F L 92 18 106/70 92 L 11/08/16 11:44 11/08/16 16:37 11/08/16 11:44 11/08/16 11:44 11/08/16 16:37 General appearance: Present: A&O X 0, no acute distress. Absent: answers questions appropriately (non-verbal) - Eye Eye exam: Present: PERRL, sclera anicteric - Neck Additional comments: tracheostomy: still suctioning a thick mucous secretion. - Respiratory Respiratory exam: Present: rhonchi. Absent: wheezes - Cardiovascular Cardiovascular exam: Present: RRR - GI/Abdominal GI/Abdominal exam: Present: normal bowel sounds, soft. Absent: distended, tenderness Additional comments: PEG tube in place - Extremities Exam Extremities exam: Present: pedal edema - Neurological Exam Neurological exam: Present: alert - Skin Skin exam: Absent: rash Internal Medicine: Result - Labs CBC & Chem 7: 11/08/16 03:53 11/08/16 03:53 Labs: Short CBC 11/08/16 Range/Units 03:53 WBC 9.9 (4.3-11.1) K/mcL Hgb 9.9 L (11.5-15.4) g/dL Hct 32.1 L (35.3-44.9) % Plt Count 298 (140-400) K/mcL Neutrophils # 6.6 (1.6-8.9) K/mcL BMP 11/08/16 03:53 Sodium 137 Potassium 4.4 Chloride 97 L Carbon Dioxide 26 BUN 94 H D Creatinine 3.68 H Glucose 93 Calcium 9.3 Liver Function 11/08/16 Range/Units 03:53 Total Bilirubin 0.5 (0.2-1.2) mg/dL AST 29 (5-34) Units/L ALT 20 (0-55) Units/L Alkaline Phosphatase 220 H (38-126) Units/L Albumin 2.7 L (3.5-5.0) g/dL - ABG Interpretation ABG results: ABG ABG pH 7.45 pH Units (7.32-7.45) 11/02/16 05:18 ABG pCO2 45 mmHg (35-45) 11/02/16 05:18 ABG pO2 105 mmHg (85-104) H 11/02/16 05:18 ABG O2 Saturation 98 % (95-98) 11/02/16 05:18 PT/INR, D-dimer PT 19.9 Seconds (9.4-12.1) H 11/08/16 03:53 Consult Discharge Plan - Plan Referrals: Jon Hernandez MD [Primary Care Provider] - (will follow up at the [facility])
[2016-11-09] MEDS: Levalbuterol Neb 1.25 MG/3 ML IH SCH ×4 (03:17→22:00)
[2016-11-09] MEDS: Ipratropium Neb 0.5 MG NEBULIZER IH SCH ×4 (03:18→22:00)
[2016-11-09 06:01] LABS: Basophils % 0.1 %; Eosinophils # 0.2 K/mcL (0.0-0.6); Eosinophils % 2.7 %; Hemoglobin 10.7 g/dL (11.5-15.4); Immature Granulocytes % 0.7 % (0-4); Lymphocytes # 2.3 K/mcL (0.6-4.6); Lymphocytes % 25.6 %; Mean Corpuscular HGB Conc 30.6 g/dL (31.6-35.5); Mean Corpuscular Hemoglobin 28.5 pg (28.0-33.3); Mean Corpuscular Volume 93.1 fL (83.0-100.0); Mean Platelet Volume 11.1 fL (9.4-12.4); Monocytes # 1.3 K/mcL (0.0-1.3); Monocytes % 13.9 %; Neutrophils # 5.2 K/mcL (1.6-8.9); Platelet Count 283 K/mcL (140-400); Red Blood Count 3.76 M/mcL (3.82-4.97); Red Cell Distribution Width 15.9 % (11.5-14.5)
[2016-11-09 06:10] LABS: INR 1.6; Prothrombin Time 17.3 Seconds (9.4-12.1)
[2016-11-09 06:12] LABS: Calcium 9.3 mg/dL (8.6-10.8)
[2016-11-09 06:24] LABS: Potassium 4.7 mEq/L (3.5-4.5)
[2016-11-09 07:33] LABS: Acinetobacter baumannii by PCR Not Detected (Not Detect); Candida albicans by PCR Not Detected (Not Detect); Candida glabrata by PCR Not Detected (Not Detect); Candida krusei by PCR Not Detected (Not Detect); Candida parapsilosis by PCR Not Detected (Not Detect); Candida tropicalis by PCR Not Detected (Not Detect); Enterococcus by PCR Not Detected (Not Detect); Escherichia coli by PCR Not Detected (Not Detect); Klebsiella oxytoca by PCR Not Detected (Not Detect); Klebsiella pneumoniae by PCR Not Detected (Not Detect); Pseudomonas aeruginosa by PCR Not Detected (Not Detect); Serratia marcescens by PCR Not Detected (Not Detect); Staphylococcus aureus by PCR Not Detected (Not Detect); Streptococcus agalactiae(B)PCR Not Detected (Not Detect); Streptococcus by PCR Not Detected (Not Detect); Streptococcus pneumoniae PCR Not Detected (Not Detect); Streptococcus pyogenes (A) PCR Not Detected (Not Detect)
[2016-11-09 07:34] LABS: mecA Methicillin-Resist Gene ***DETECTED*** (Not Detect)
--- NOTE | 2016-11-09 08:50 | Internal Med Progress Note ---
Date of Encounter: 11/09/16 Time of Encounter: 07:30 - Assessment and plan (1) Sepsis Current Visit: Yes Status: Acute Assessment and plan: MRSE bacteremia and ESBL Ecoli UTI. Patient with ESRD on HD with permacath. 11/01: blood culture grew MRSE 10/18 bottles 11/01: urine grew ESBL E coli 11/05: Central venous dialysis catheter tip grew MRSE. peripheral blood cultures negative so far. 11/06: Had removal of permacath. blood cultures negative so far Completed IV Ertapenem and Fluconazole 11/08. sepsis has resolved. requiring midodrine. IV vancomycyn until final results of blood cultures from 11/06 and 11/06. Qualifiers: Sepsis type: sepsis due to unspecified organism Qualified Code(s): A41.9 - Sepsis, unspecified organism (2) Bacteremia Current Visit: Yes Status: Acute Assessment and plan: MRSE bacteremia plan as above (3) UTI (urinary tract infection) Current Visit: Yes Status: Suspected Assessment and plan: Ecoli ESBL plan as above Qualifiers: Urinary tract infection type: site unspecified Hematuria presence: without hematuria Qualified Code(s): N39.0 - Urinary tract infection, site not specified (4) Acute and chronic respiratory failure Current Visit: Yes Status: Acute Assessment and plan: secondary to tracheobronchitis. She has a tracheotomy that she received last March, collar at [facility]. Patient reportedly had desaturation event into the 80s prior to arrival to [place]. Acute event secondary to sepsis and COPD exacerbation. 11/06: patient with copious secretions coming thru tracheostomy and has diffuse wheezes. 5L trach collar. CXR showed no acute infiltrate. 11/07: tracheal culture showed GNR. continue tracheal suctioning prn. nebulizations. mucomyst mucinex. await final result of tracheal culture CXR showed cardiomegaly with persistent bilateral pleural effusion. Qualifiers: Respiratory failure complication: unspecified whether with hypoxia or hypercapnia Qualified Code(s): J96.20 - Acute and chronic respiratory failure , unspecified whether with hypoxia or hypercapnia (5) ESRD (end stage renal disease) on dialysis Current Visit: Yes Status: Chronic Assessment and plan: Nephrology is following. Permacath was removed 11/05 due to MRSE bacteremia. Follow up peripheral blood cultures are negative so far. Plan for placement of Permacath by IR today. (6) Chronic a-fib Current Visit: Yes Status: Chronic Assessment and plan: heart rate is adequate holding coumadin for placement of new permacath today. (7) Counseling regarding advanced care planning and goals of care Current Visit: Yes Status: Acute Assessment and plan: Palliative service consulted. - Subjective Interval history: patient is non verbal due to tracheostomy. she answers no to any pain or complaints (moves her head). - Constitutional Vitals: Temp Pulse Resp BP Pulse Ox 97.8 F 95 16 120/78 94 L 11/09/16 07:36 11/09/16 07:44 11/09/16 07:36 11/09/16 07:36 11/09/16 07:36 General appearance: Present: A&O X 2, no acute distress, obese - Eye Eye exam: Present: PERRL, sclera anicteric - Neck Neck exam general surgery: Present: supple, trachea midline. Absent: lymphadenopathy - Respiratory Respiratory exam: Present: rhonchi - Cardiovascular Cardiovascular exam: Present: RRR - GI/Abdominal GI/Abdominal exam: Present: normal bowel sounds, soft. Absent: distended, tenderness - Extremities Exam Extremities exam: Absent: joint swelling Additional comments: swelling of all extremities. - Back Exam Back exam: Absent: CVA tenderness (L), CVA tenderness (R) - Neurological Exam Neurological exam: Present: alert. Absent: facial droop, speech deficit - Skin Skin exam: Present: dry Internal Medicine: Result - Labs CBC & Chem 7: 11/09/16 05:52 11/09/16 05:52 Labs: Short CBC 11/09/16 Range/Units 05:52 WBC 9.0 (4.3-11.1) K/mcL Hgb 10.7 L (11.5-15.4) g/dL Hct 35.0 L (35.3-44.9) % Plt Count 283 (140-400) K/mcL Neutrophils # 5.2 (1.6-8.9) K/mcL BMP 11/09/16 05:52 Sodium 134 L Potassium 4.7 H Chloride 97 L Carbon Dioxide 23 BUN 106 H Creatinine 4.01 H Glucose 75 Calcium 9.3 - ABG Interpretation ABG results: ABG ABG pH 7.45 pH Units (7.32-7.45) 11/02/16 05:18 ABG pCO2 45 mmHg (35-45) 11/02/16 05:18 ABG pO2 105 mmHg (85-104) H 11/02/16 05:18 ABG O2 Saturation 98 % (95-98) 11/02/16 05:18 PT/INR, D-dimer PT 17.3 Seconds (9.4-12.1) H 11/09/16 05:52 - Impressions Impressions Chest X-Ray 11/08/16 17:42 IMPRESSION: Cardiomegaly with persistent bilateral pleural effusions D/ / Ajit To MD / Ajit To MD Interpreting Provider: Ajit To MD Consult Discharge Plan - Plan Referrals: Jon Hernandez MD [Primary Care Provider] - (will follow up at the [facility])
[2016-11-09] MEDS ORDERED: Heparin 1,000 UNITS/500 mL NS 500 ML ONE (09:17)
[2016-11-09] MEDS ORDERED: 0.9 % Sodium Chloride 250 ML IV PRN (09:39)
--- NOTE | 2016-11-09 09:39 | Nephrology Progress Note ---
Date of Encounter: 11/09/16 Time of Encounter: 09:37 - Assessment and Plan (1) ESRD (end stage renal disease) on dialysis Current Visit: Yes Status: Chronic The patient has methicillin resistant staph epidermidis bacteremia. The catheter tip culture is positive. Blood cultures for break and remain negative. The patient's INR is 1.6 today. She should be able to get her tunneled dialysis catheter placed today and then get dialysis. (2) Acute and chronic respiratory failure Current Visit: Yes Status: Acute Qualifiers: Respiratory failure complication: unspecified whether with hypoxia or hypercapnia Qualified Code(s): J96.20 - Acute and chronic respiratory failure , unspecified whether with hypoxia or hypercapnia (3) Hypotension Current Visit: Yes Status: Acute Qualifiers: Hypotension type: other hypotension type Qualified Code(s): I95.89 - Other hypotension (4) Chronic a-fib Current Visit: Yes Status: Chronic Subjective Principal diagnosis: Respiratory failure, hypotension, bacteremia Interval history: The patient remains poorly responsive. She is hemodynamically stable. Most recent blood cultures remain negative. The patient was unable to get her tunnel dialysis catheter placed yesterday because of an INR of 1.8. INR is 1.6 today so hopefully she will get it placed today and then get dialysis. Objective - Vital Signs Vital signs: Vital Signs Temp Pulse Resp BP Pulse Ox 11/09/16 07:44 95 11/09/16 07:36 97.8 F 97 16 120/78 94 L 11/09/16 04:41 97.9 F 86 16 120/70 100 11/09/16 04:11 105 11/09/16 03:18 20 98 11/09/16 00:00 97.8 F 86 17 113/78 100 11/08/16 23:45 84 11/08/16 22:21 18 99 11/08/16 20:54 85 11/08/16 19:00 97.9 F 98 18 118/76 99 11/08/16 17:36 97.5 F L 97 18 109/68 99 11/08/16 16:37 92 92 L 11/08/16 15:41 16 95 11/08/16 12:27 96 11/08/16 11:44 97.4 F L 98 18 106/70 94 L 11/08/16 11:08 18 99 Intake and Output 0211/09/16 11/09/16 23:59 07:59 15:59 Intake Total 812 Output Total 0 / 0 Balance 81 812 Intake: Oral 0 / 0 Tube Feeding 772 / 772 Free Water Intake Amount 40 / 40 Output: Urine 0 / 0 Other: # Voids 1 Weight 101.9 kg Blood Glucose* 89 71 Patient Weight 11/09/16 23:59 Weight 101.9 kg - General Appearance Exam: Patient is poorly responsive. She is in no acute distress. Trach collars and place. Vital signs are stable. Lungs diminished breath sounds. Heart irregular rate and rhythm. Abdomen is soft. PEG tube is in place. She does have lower extremity edema. - Lab 11/09/16 05:52 11/09/16 05:52 Most recent lab results ABG pH 7.45 pH Units (7.32-7.45) 11/02/16 05:18 ABG pCO2 45 mmHg (35-45) 11/02/16 05:18 ABG pO2 105 mmHg (85-104) H 11/02/16 05:18 ABG HCO3 31.3 mEQ/L (21-27) H 11/02/16 05:18 ABG O2 Saturation 98 % (95-98) 11/02/16 05:18 Calcium 9.3 mg/dL (8.6-10.8) 11/09/16 05:52 Phosphorus 4.4 mg/dL (2.3-4.7) 11/02/16 04:45 Magnesium 2.6 mg/dL (1.6-2.6) 11/02/16 04:45 Consult Discharge Plan - Plan Referrals: Jon Hernandez MD [Primary Care Provider] - (will follow up at the [facility])
[2016-11-09] MEDS ORDERED: *HR* FentaNYL (PF) 100 MCG/2 ML VIAL IV PRN (10:04)
[2016-11-09] MEDS ORDERED: Clindamycin 600 MG/50 ML 600 MG/50 ML IV.SOLN IVPB STA (10:04)
[2016-11-09] MEDS ORDERED: *HR* Midazolam HCl 2 MG/2 ML VIAL IV PRN (10:04)
--- NOTE | 2016-11-09 10:06 | Pre-Sedation Evaluation ---
Pre-sedation evaluation - Pre-sedation checklist Date of procedure: 11/06/16 Procedure: tunneled HDC insertion Recent Vitals: Last Vital Signs Temp 97.8 F 11/09/16 07:36 Pulse 95 11/09/16 07:44 Resp 16 11/09/16 07:36 BP 120/78 11/09/16 07:36 Pulse Ox 94 L 11/09/16 07:36 H&P (including ROS) documented in medical record: Yes Dietary Status: NPO 6 hours prior to procedure Airway Assessment: Patient can open mouth completely, TMJ function normal, Micrognathia (under-bite, receding chin) absent, Neck with adequate range of motion ASA Classification *see protocol: CLASS II-Mild systemic disease Plan of Care: Pt appropriate candidate for procedure/moderate/conscious sedation , Risks/benefits of procedure/sedation discussed w/ patient/family, If not NPO; Risk of intake outweiged by necessity to perform procedure
[2016-11-09] MEDS ORDERED: 0.9 % Sodium Chloride 500 ML ONE (10:17)
[2016-11-09] MEDS ORDERED: *HR* Heparin 5,000 UNIT/ML VIAL ONE (11:01)
--- NOTE | 2016-11-09 11:24 | IR Procedure Note ---
Date of procedure: 11/09/16 Consent Obtained: Verbal consent, Written consent Timeout: Correct patient and procedure verified, Correct site verified, Time out performed, Skin prep completed Local anesthetic: Lidocaine 1% Indications: ESRD Procedure Performed: permcath placement Site/Technique: right external jugular Results/Findings: occulsion of distal right IJ Estimated blood loss (cc): 1 Complications: None; Tolerated procedure well Post Procedure Treatment Plan: bedrest x 1 hour
[2016-11-09] MEDS: OLANZapine 5 MG TAB.RAPDIS PO SCH (12:11)
[2016-11-09] MEDS: Metoclopramide 10 MG/10 ML UD.LIQ GTUBE SCH (12:11)
--- NOTE | 2016-11-09 14:15 | Podiatry Consult Note ---
Date of Encounter: 11/09/16 Time of Encounter: 13:15 Assessment and Plan (1) Onychomycosis Status: Acute Unable to provide any education on daily foot care, patient non verbal and ECF resident Examined feet Debridement of nails x9 using bedside nail grinders and nail nippers to alleviate pressure. Most of nails #1 and #2 of left foot disconnected and removed. Connected near nail root only. No complications. Tolerated well. (2) Ulcer of second toe of left foot Status: Acute Sharp debridement of callused lesion at bedside using #15 blade. Patient tolerated well After debridement of callus, noted a ulceration with purulent drainage 1.2cm tunnelling noted to wound Patient unable to report any history of this wound Will obtain xray for assessment of bone involvement Will continue current antibiotics at this time Cleanse daily with saline, place adaptic, 2x2 and kerlex. Would like to follow up with patient in clinic 1-2 weeks after discharge to re- evaluate (3) Callus of foot Status: Acute Sharp debridement of callused lesion using #15 blade to alleviate pressure and prevent ulceration. No ulceration noted. Small bleed. Cleansed, 4x4 and kerlex applied. Call with any issues (4) ESRD (end stage renal disease) on dialysis Status: Chronic History of Present Illness HPI: Ms. Meyers is a 81 year old female who initially came to [place] with hypotension. She is a patient of a LTCF. Has h/o of ESRD on dialysis and s/p trach (within past year) and is on the vent. She is nonverbal and there is no family at bedside on arrival to the room. She nods head occasionally. All history obtained is from previous notes. She does not appear in any acute distress. She just returned from a permacath placement. Podiatry was consulted for foot care since patient has been in LTCF. Patient is non verbal but shakes head "no" to having any pain to her feet or any issues at this time. Patient WBC elevated on arrival and is currently being treated with Vancomycin (Gram - rods to trachea, GPC to CVC and Staph Epidermidis to blood.) Past Med Surg Social Fam HX - Past Medical History Medical history: atrial fibrillation, hypertension, renal disease, other ( Chronic respiratory failure) Psychiatric history: no psych history - Past Surgical History Surgical History: tracheostomy - Social History Smoking Status: Unknown if ever smoked Smokeless Tobacco Status: No Alcohol use: none Drug use: none Medications and Allergies Bisacodyl [Dulcolax] 10 mg RC DAILY 09/05/16 [History] Dorzolamide [Trusopt] 1 drop RIGHT EYE BID 09/05/16 [History] Ergocalciferol (VITAMIN D2) [Vitamin D2] 50,000 unit GTUBE QWEEK 09/05/16 [ History] Metoclopramide HCl 5 mg GTUBE DAILY 09/05/16 [History] OLANZapine [Zyprexa] 2.5 mg GTUBE DAILY 09/05/16 [History] Famotidine [Heartburn Prevention] 20 mg GTUBE DAILY 11/01/16 [History] Warfarin [Coumadin] 3 mg GTUBE DAILY 11/01/16 [History] Darbepoetin [Aranesp] 60 mcg SQ QWEEK syringe 11/11/16 [Rx] GuaiFENesin Liq [Robitussin Liq] 200 mg GTUBE Q6HR PRN #0 udc 11/11/16 [Rx] Ipratropium Neb [Atrovent Neb] 0.5 mg IH [id number] inhsol 11/11/16 [Rx] Levalbuterol Neb [Xopenex Neb] 1.25 mg IH [id number] #0 vial.neb 11/11/16 [Rx] Midodrine [ProAmatine] 5 mg PO 0800,1200,1700 tablet 11/11/16 [Rx] Allergies Penicillins Allergy (Verified 09/05/16 08:17) Hives All Systems Reviewed: A 10-system review of systems was performed and is negative for pertinent findings except as documented above in the HPI. Physical Exam - Constitutional Vitals: Temp Pulse Resp BP Pulse Ox 97.4 F L 87 18 99/63 100 11/09/16 11:54 11/09/16 13:00 11/09/16 11:54 11/09/16 13:00 11/09/16 11:54 General appearance: pleasant Exam: General Examination: CONSTITUTIONAL: Non distress. Non verbal. Follows with eyes at times. Nods head to some questions at times EXTREMITIES: CFT 3 seconds all toes. Edema +1 and pedal pulses palpable. SKIN: Skin with decreased turgor, decreased subcutaneous tissue, skin thin and shiny with trophic changes associated with comorbidities as described in history.. Hyperkeratotic lesions noted to left foot sub metatarsal head #5 left foot, debridement was complete and no issues are noted at this time. 1.3x1.3cm, and right foot dorsal aspect of IP joint toe #2, this appeared dry with yellow crusting, after debridement complete, small amount of yellow purulent drainage expelled. No odor, no warmth, no edema noted to toe. Measured.0.5x0.6 with 1.2cm tunneling noted to 12oclock area of ulceration, no bone noted to be exposed. Ulceration appears secondary to hammertoe deformity of this toe. NEUROLOGIC: Patient moans at times with manipulation of feet. does not attempt withdraw to pain. Patient wearing prevalon boots on arrival for protection of feet and heels from pressure Nails #1 through #5 to left and #2 through #5 to right are thick, elongated and mycotic. No signs of bacterial infection. Right foot nail #1 has been removed. No calf pain with palpation, no warmth or edema noted Results - Labs Result Diagrams: 11/09/16 05:52 11/11/16 05:09 Labs: Abnormal lab results RBC 3.76 M/mcL (3.82-4.97) L 11/09/16 05:52 Hgb 10.7 g/dL (11.5-15.4) L 11/09/16 05:52 Hct 35.0 % (35.3-44.9) L 11/09/16 05:52 MCHC 30.6 g/dL (31.6-35.5) L 11/09/16 05:52 RDW 15.9 % (11.5-14.5) H 11/09/16 05:52 Nucleated RBCs/100 WBC 0.2 /100 WBC (0) H 11/08/16 03:53 PT 17.3 Seconds (9.4-12.1) H 11/09/16 05:52 APTT 45.1 Seconds (26.0-36.0) H 11/01/16 17:53 ABG pO2 105 mmHg (85-104) H 11/02/16 05:18 ABG HCO3 31.3 mEQ/L (21-27) H 11/02/16 05:18 ABG Total CO2 32.7 mEq/L (20-26) H 11/02/16 05:18 ABG Base Excess 6.6 mEq/L (-2.0 to 3.0) H 11/02/16 05:18 Sodium 134 mEq/L (136-145) L 11/09/16 05:52 Potassium 4.7 mEq/L (3.5-4.5) H 11/09/16 05:52 Chloride 97 mEq/L (98-109) L 11/09/16 05:52 BUN 106 mg/dL (7-20) H 11/09/16 05:52 Creatinine 4.01 mg/dL (0.57-1.11) H 11/09/16 05:52 Est GFR ( Amer) 13 (> 60) L 11/09/16 05:52 Est GFR (Non-Af Amer) 11 (> 60) L 11/09/16 05:52 Calculated Osmolality 310 (280-300) H 11/09/16 05:52 Alkaline Phosphatase 220 Units/L (38-126) H 11/08/16 03:53 Albumin 2.7 g/dL (3.5-5.0) L 11/08/16 03:53 Globulin 4.0 g/dL (2.4-3.5) H 11/08/16 03:53 Albumin/Globulin Ratio 0.7 (1.1-2.2) L 11/08/16 03:53 TSH 29.747 mcIU/mL (0.350-4.840) H 11/02/16 10:09 Free T3 < 1.00 pg/mL (1.71-3.71) L 11/02/16 10:09 Urine Clarity Cloudy (Clear) A 11/01/16 17:07 Urine Protein 100 mg/dL (Neg-Trace) H 11/01/16 17:07 Urine Ketones Trace mg/dL (Negative) H 11/01/16 17:07 Urine Blood Moderate (Negative) H 11/01/16 17:07 Urine Bilirubin Small (Negative) H 11/01/16 17:07 Ur Leukocyte Esterase Large (Negative) H 11/01/16 17:07 Urine Microscopic RBC 30-50 per hpf (0-3) H 11/01/16 17:07 Urine Microscopic WBC TNTC per hpf (0-3) H 11/01/16 17:07 Ur Squamous Epith Cells Many per lpf (None-Few) H 11/01/16 17:07 Urine Bacteria Many per hpf (None-Few) H 11/01/16 17:07 Ur Culture Indicated? YES (NO) A 11/01/16 17:07 Staphylococcus sp PCR DETECTED (Not Detect) A 11/05/16 14:10 MRS (TEM-PCR) DETECTED (Not Detect) A 11/05/16 14:10 H & H 11/09/16 Range/Units 05:52 Hgb 10.7 L (11.5-15.4) g/dL Hct 35.0 L (35.3-44.9) % All other labs normal. Consult Discharge Plan - Plan Referrals: Jon Hernandez MD [Primary Care Provider] - (will follow up at the [facility])
[2016-11-09] MEDS ORDERED: 0.9 % Sodium Chloride 2,000 ML ONE (14:21)
[2016-11-09] MEDS ORDERED: *HR* Heparin 10,000 UNIT/10 ML VIAL IV PRN (17:11)
[2016-11-09] MEDS ORDERED: Warfarin perPT PO PRN (18:00)
[2016-11-09] MEDS ORDERED: *HR* Warfarin 3 MG TABLET PO ONE (18:00)
[2016-11-10] MEDS: Ipratropium Neb 0.5 MG NEBULIZER IH SCH ×4 (04:19→20:57)
[2016-11-10] MEDS: Levalbuterol Neb 1.25 MG/3 ML IH SCH ×4 (04:19→20:57)
[2016-11-10] MEDS ORDERED: D5% in 0.45% NACL 1,000 ML IVC SCH (06:15)
[2016-11-10 06:34] LABS: Calcium 8.7 mg/dL (8.6-10.8); Potassium 4.1 mEq/L (3.5-4.5)
[2016-11-10 06:39] LABS: INR 1.5; Prothrombin Time 16.6 Seconds (9.4-12.1)
[2016-11-10] MEDS: Metoclopramide 10 MG/10 ML UD.LIQ GTUBE SCH (07:43)
[2016-11-10] MEDS: OLANZapine 5 MG TAB.RAPDIS PO SCH (07:45)
--- NOTE | 2016-11-10 07:49 | Event Note ---
Date of Encounter: 11/10/16 Time of Encounter: 07:48 The patient had her tunneled dialysis catheter placed yesterday. She received her dialysis. We can resume her Coumadin today.
--- NOTE | 2016-11-10 11:22 | Internal Med Progress Note ---
Date of Encounter: 11/10/16 Time of Encounter: 11:00 - Assessment and plan (1) Hypoglycemia Current Visit: Yes Status: Acute Assessment and plan: could be from holding tube feedings before placement of dialysis catheter. close monitor. pt BS down at 63 at 5.54 this morning. Started on D5 1/2NS at 75 ml/hr. Next BS is 90. Decrease fluids to 30 ml/hr. recheck BS in 2 hours. (2) Sepsis Current Visit: Yes Status: Acute Assessment and plan: MRSE bacteremia and ESBL Ecoli UTI. Patient with ESRD on HD with permacath. 11/01: blood culture grew MRSE 10/18 bottles 11/01: urine grew ESBL E coli 11/05: Central venous dialysis catheter tip grew MRSE. peripheral blood cultures negative so far. 11/06: Had removal of permacath. blood cultures negative so far Completed IV Ertapenem and Fluconazole 11/08. sepsis has resolved. requiring midodrine. IV vancomycyn until final results of blood cultures from 11/06 and 11/06. Qualifiers: Sepsis type: sepsis due to unspecified organism Qualified Code(s): A41.9 - Sepsis, unspecified organism (3) Bacteremia Current Visit: Yes Status: Acute Assessment and plan: MRSE bacteremia plan as above (4) UTI (urinary tract infection) Current Visit: Yes Status: Suspected Assessment and plan: Ecoli ESBL plan as above Qualifiers: Urinary tract infection type: site unspecified Hematuria presence: without hematuria Qualified Code(s): N39.0 - Urinary tract infection, site not specified (5) Acute and chronic respiratory failure Current Visit: Yes Status: Acute Assessment and plan: secondary to tracheobronchitis. She has a tracheotomy that she received last March, at [facility]. Patient reportedly had desaturation event into the 80s prior to arrival to [place]. Acute event secondary to sepsis and COPD exacerbation. 11/06: patient with copious secretions coming thru tracheostomy and has diffuse wheezes. 5L trach collar. CXR showed no acute infiltrate. 11/07: tracheal culture showed GNR. continue tracheal suctioning prn. nebulizations. mucomyst mucinex. await final result of tracheal culture CXR showed cardiomegaly with persistent bilateral pleural effusion. Qualifiers: Respiratory failure complication: unspecified whether with hypoxia or hypercapnia Qualified Code(s): J96.20 - Acute and chronic respiratory failure , unspecified whether with hypoxia or hypercapnia (6) ESRD (end stage renal disease) on dialysis Current Visit: Yes Status: Chronic Assessment and plan: Nephrology is following. Permacath was removed 11/05 due to MRSE bacteremia. Follow up peripheral blood cultures are negative so far. Plan for placement of Permacath by IR today. (7) Chronic a-fib Current Visit: Yes Status: Chronic Assessment and plan: heart rate is adequate holding coumadin for placement of new permacath today. (8) Counseling regarding advanced care planning and goals of care Current Visit: Yes Status: Acute Assessment and plan: Palliative service consulted. - Subjective Interval history: patient is non verbal due to tracheostomy. she nods to doing okay. - Constitutional Vitals: Temp Pulse Resp BP Pulse Ox 97.4 F L 79 16 102/68 99 11/10/16 07:46 11/10/16 07:46 11/10/16 09:39 11/10/16 07:46 11/10/16 09:39 General appearance: Present: A&O X 2, no acute distress, obese - Eye Eye exam: Present: PERRL, sclera anicteric - Neck Neck exam general surgery: Present: supple, trachea midline. Absent: lymphadenopathy - Respiratory Respiratory exam: Present: rhonchi - Cardiovascular Cardiovascular exam: Present: RRR - GI/Abdominal GI/Abdominal exam: Present: normal bowel sounds, soft. Absent: distended, tenderness - Extremities Exam Extremities exam: Present: pedal edema (both legs: knee immobilizer. swelling of all 4 extremities) - Back Exam Back exam: Absent: CVA tenderness (L), CVA tenderness (R) - Neurological Exam Neurological exam: Present: alert, oriented X3. Absent: facial droop, speech deficit - Skin Skin exam: Present: dry Internal Medicine: Result - Labs CBC & Chem 7: 11/09/16 05:52 11/10/16 05:43 Labs: BMP 11/10/16 05:43 Sodium 134 L Potassium 4.1 Chloride 97 L Carbon Dioxide 25 BUN 57 H D Creatinine 2.52 H Glucose 90 Calcium 8.7 - ABG Interpretation ABG results: ABG ABG pH 7.45 pH Units (7.32-7.45) 11/02/16 05:18 ABG pCO2 45 mmHg (35-45) 11/02/16 05:18 ABG pO2 105 mmHg (85-104) H 11/02/16 05:18 ABG O2 Saturation 98 % (95-98) 11/02/16 05:18 PT/INR, D-dimer PT 16.6 Seconds (9.4-12.1) H 11/10/16 05:43 - Impressions Impressions Guidance Needle Placement Ultrasound 11/09/16 00:00 IMPRESSION: Ultrasound fluoroscopy guided right external jugular tunneled dialysis catheter placement as above. 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 D/ : / 11/09/2016 15:12:56 Kishore Greer MD / Tasneem Beasley Interpreting Provider: Kishore Greer MD Insertion Tunneled Catheter 11/09/16 00:00 IMPRESSION: Ultrasound fluoroscopy guided right external jugular tunneled dialysis catheter placement as above. 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 D/ /09/2016 15:12:56 Kishore Greer MD / Tasneem Beasley Interpreting Provider: Kishore Greer MD Vena [facility], [place] 11/09/16 00:00 IMPRESSION: Ultrasound fluoroscopy guided right external jugular tunneled dialysis catheter placement as above. 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 D/ /09/2016 15:12:56 Kishore Greer MD / Tasneem Beasley Interpreting Provider: Kishore Greer MD Foot X-Ray 11/09/16 14:38 IMPRESSION: 1. Ulceration to the dorsal aspect of the right forefoot. 2. There is no evidence of osteomyelitis on plain film imaging. D/ / Chandrakant Porras MD / Chandrakant Porras MD Interpreting Provider: Chandrakant Porras MD Consult Discharge Plan - Plan Referrals: Jon Hernandez MD [Primary Care Provider] - (will follow up at the [facility])
[2016-11-10] MEDS ORDERED: Milk and Molasses Enema 200 ML RC PRN (16:59)
[2016-11-10] MEDS ORDERED: Bisacodyl 10 MG RECTAL SUPPOSITORY RC ONE (16:59)
[2016-11-10] MEDS ORDERED: Bisacodyl 10 MG RECTAL SUPPOSITORY RC PRN (17:00)
[2016-11-10] MEDS ORDERED: *HR* Warfarin 3 MG TABLET PO ONE (18:00)
[2016-11-11] MEDS: Ipratropium Neb 0.5 MG NEBULIZER IH SCH ×2 (04:01→09:30)
[2016-11-11] MEDS: Levalbuterol Neb 1.25 MG/3 ML IH SCH ×2 (04:01→09:30)
[2016-11-11 06:41] LABS: INR 1.6; Prothrombin Time 17.8 Seconds (9.4-12.1)
[2016-11-11 07:03] LABS: Calcium 8.9 mg/dL (8.6-10.8); Magnesium 1.9 mg/dL (1.6-2.6)
[2016-11-11] MEDS: OLANZapine 5 MG TAB.RAPDIS PO SCH (09:23)
[2016-11-11] MEDS: Metoclopramide 10 MG/10 ML UD.LIQ GTUBE SCH (09:23)
--- NOTE | 2016-11-11 10:23 | Discharge Summary ---
Date of Encounter: 11/11/16 Time of Encounter: 10:00 - Discharge Diagnosis (1) Hypoglycemia Priority: Primary Status: Acute (2) Sepsis Priority: Primary Status: Acute Qualifiers: Sepsis type: sepsis due to unspecified organism Qualified Code(s): A41.9 - Sepsis, unspecified organism (3) Bacteremia Priority: Primary Status: Acute (4) UTI (urinary tract infection) Priority: Primary Status: Suspected Qualifiers: Urinary tract infection type: site unspecified Hematuria presence: without hematuria Qualified Code(s): N39.0 - Urinary tract infection, site not specified (5) Acute and chronic respiratory failure Priority: Primary Status: Acute Qualifiers: Respiratory failure complication: unspecified whether with hypoxia or hypercapnia Qualified Code(s): J96.20 - Acute and chronic respiratory failure , unspecified whether with hypoxia or hypercapnia (6) ESRD (end stage renal disease) on dialysis Priority: Primary Status: Chronic (7) Chronic a-fib Priority: Secondary Status: Chronic (8) Counseling regarding advanced care planning and goals of care Priority: Secondary Status: Chronic - Discharge Medications Home Medications: Bisacodyl [Dulcolax] 10 mg RC DAILY 09/05/16 [History] Dorzolamide [Trusopt] 1 drop RIGHT EYE BID 09/05/16 [History] Ergocalciferol (VITAMIN D2) [Vitamin D2] 50,000 unit GTUBE QWEEK 09/05/16 [ History] Metoclopramide HCl 5 mg GTUBE DAILY 09/05/16 [History] OLANZapine [Zyprexa] 2.5 mg GTUBE DAILY 09/05/16 [History] Famotidine [Heartburn Prevention] 20 mg GTUBE DAILY 11/01/16 [History] Warfarin [Coumadin] 3 mg GTUBE DAILY 11/01/16 [History] Darbepoetin [Aranesp] 60 mcg SQ QWEEK syringe 11/11/16 [Rx] GuaiFENesin Liq [Robitussin Liq] 200 mg GTUBE Q6HR PRN #0 udc 11/11/16 [Rx] Ipratropium Neb [Atrovent Neb] 0.5 mg IH [id number] inhsol 11/11/16 [Rx] Levalbuterol Neb [Xopenex Neb] 1.25 mg IH [id number] #0 vial.neb 11/11/16 [Rx] Midodrine [ProAmatine] 5 mg PO 0800,1200,1700 tablet 11/11/16 [Rx] Allergies/Adverse Reactions: Allergies Penicillins Allergy (Verified 09/05/16 08:17) Hives Procedures/tests Complete & Pending: Procedures Performed prior 72 hours Category Date Time Status IR cvc 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 tunnel 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 [IR] Routine IR 11/09/16 Draft IR us guide needle place [IR] Routine IR 11/09/16 Draft IR venogram caval superior [IR] Routine IR 11/09/16 Draft Date of admission: 11/02/16 05:22 Primary care physician: Jon Hernandez MD Consults: 11/02/16 10:45 Consult to Dialysis [CONS] ONCE 11/05/16 12:15 Consult to Dialysis [CONS] ONCE 11/06/16 07:54 Consult to Interventional Radiology [CONS] Routine Consulting Provider: Radiology Interventional Cols Reason for Consult: remove tunneled dialysis catheter, place a new one in 2 days Time Notified: 07:55 Call Completed: No 11/06/16 09:53 Consult to Respiratory Therapy [CONS] Routine Reason for Consult: pulmonary toileting. Call Completed: No 11/08/16 08:18 Consult to Interventional Radiology [CONS] Routine Consulting Provider: Radiology Interventional Cols Reason for Consult: place new tunneled dialysis catheter Time Notified: 08:18 Call Completed: No 11/08/16 08:30 Consult to Dialysis [CONS] ONCE 11/08/16 15:43 Consult to Podiatry [CONS] Routine Consulting Provider: [facility] Reason for Consult: Patient is resident of SNF and with poor mobility. Nails long/at risk for breakage. Could you evaluate/trim nails? Call Completed: No 11/08/16 15:44 Consult to Speech Therapy [CONS] Routine Comment: Evaluate, develop and implement POC Reason for Consult: patient with trach has used passay sunshine valve in the past to speak. Family would like to have valve available during hospitalization. Please eval. Call Completed: Yes 11/09/16 09:45 Consult to Dialysis [CONS] ONCE - Patient Status Disposition: Transfer SNF Condition: Fair Functional capacity at discharge: bed bound Overall status at discharge: patient is not back to baseline - Discharge Instructions Follow Up With: Jon Hernandez MD [Primary Care Provider] - ([facility] - Diet and Activity Activity: as per physical therapy Diet: other (Nepro at 45mls/hr via PEG ) Interval History: accucheck [id number]. pt is non-verbal but moves head for no when asked if she is in pain. I attempted to contact her daughters Mary and Sofie but no success, I was only able to leave a voicemail to her daughter Sofie. Hospital course: Ms. Meyers is a 81 year old female with past medical history of end-stage renal disease on dialysis, chronic respiratory failure status post tracheostomy , nonverbal, atrial fibrillation on Coumadin and hypertension. She is a halfway resident and was sent to our ED because of hypotension. She was admitted for acute on chronic respiratory failure, sepsis secondary to ESBL Escherichia coli UTI and MRSE bacteremia. Patient was not started on broad spectrum antibiotics including IV vancomycin and then IV ertapenem and fluconazole were added. She completed 10 days of IV vancomycin inpatient. She also completed 7 days of IV ertapenem and fluconazole inpatient. In view of her permacath, this was removed and manual was placed when blood cultures were negative. She developed acute bronchitis with copy secretions through the tracheostomy which improved after starting nebulizations and Mucinex and frequent suctioning. PLAN: Continue frequent suctioning at least 4 times daytime. Coumadin management per protocol. 11/01: blood culture grew MRSE / bottles 11/01: urine grew ESBL E coli 11/05: Central venous dialysis catheter tip grew MRSE. peripheral blood cultures negative so far. 11/06: Had removal of permacath. blood cultures negative. - Time Spent with Patient Total time spent providing and/or coordinating discharge services: - Constitutional Vitals: Temp Pulse Resp BP Pulse Ox 97.0 F L 96 18 86/60 96 11/11/16 07:18 11/11/16 09:36 11/11/16 07:18 11/11/16 07:18 11/11/16 07:18 General appearance: Present: A&O X 2, no acute distress, obese
--- NOTE | 2016-11-11 10:28 | Physician Discharge Referral ---
ExtendedCare Referral Info Transfer To: SNF Provider in Charge: vanessa Provider in Charge after Transfer: PCP Institutional Level of Care: Skilled - Diagnosis (1) Hypoglycemia Status: Acute (2) Sepsis Status: Acute (3) Bacteremia Status: Acute (4) UTI (urinary tract infection) Status: Suspected (5) Acute and chronic respiratory failure Status: Acute (6) ESRD (end stage renal disease) on dialysis Status: Chronic (7) Chronic a-fib Status: Chronic (8) Counseling regarding advanced care planning and goals of care Status: Chronic - Transfer Medications Home Medications: Bisacodyl [Dulcolax] 10 mg RC DAILY 09/05/16 [History] Dorzolamide [Trusopt] 1 drop RIGHT EYE BID 09/05/16 [History] Ergocalciferol (VITAMIN D2) [Vitamin D2] 50,000 unit GTUBE QWEEK 09/05/16 [ History] Metoclopramide HCl 5 mg GTUBE DAILY 09/05/16 [History] OLANZapine [Zyprexa] 2.5 mg GTUBE DAILY 09/05/16 [History] Famotidine [Heartburn Prevention] 20 mg GTUBE DAILY 11/01/16 [History] Warfarin [Coumadin] 3 mg GTUBE DAILY 11/01/16 [History] Darbepoetin [Aranesp] 60 mcg SQ QWEEK syringe 11/11/16 [Rx] GuaiFENesin Liq [Robitussin Liq] 200 mg GTUBE Q6HR PRN #0 udc 11/11/16 [Rx] Ipratropium Neb [Atrovent Neb] 0.5 mg IH [id number] inhsol 11/11/16 [Rx] Levalbuterol Neb [Xopenex Neb] 1.25 mg IH [id number] #0 vial.neb 11/11/16 [Rx] Midodrine [ProAmatine] 5 mg PO 0800,1200,1700 tablet 11/11/16 [Rx] Allergies/Adverse Reactions: Allergies Penicillins Allergy (Verified 09/05/16 08:17) Hives - Respiratory Orders Oxygen / L per min (trach collar 10L FIo2 40%) Smoking Cessation: Smoking cessation has been advised. For more information, call the [employer] Tobacco Quit Line at 8-242-SZQC-NOW. - Lab Orders Lab Orders: Other (include drug levels w/frequency) (INR daily) - Advance Directives Code Status: Full Code - Mobility Orders Bedrest - Rehabiliation Orders Rehab Orders: Evaluation for Physical Therapy, Evaluation for Occupational Therapy - Treatments Skin tear care topically daily PRN per policy - Diet Orders Tube Feedings (type/amount/rate): Nepro at 45mls/hr via PEG CERTIFICATION: I certify that the transfer of the above named patient to an Extended Care Facility is necessary for the continuing treatment of the diagnosis listed. The above information is true and accurate reflection of patient's current condition. Confidential - Redisclosure prohibited without a patient's written consent.
[2016-11-11 11:35] VITALS: BP 104/65
[2016-11-11] MEDS ORDERED: *HR* Warfarin 3 MG TABLET PO ONE (18:00)
--- NOTE | 2016-11-16 07:47 | Invasive Diagnostic Lab Proc ---
Name: Katelynn Meyers Date of Study: 11/16/2016 Date: 1935 Ht: 65.0in Medical Record#: [id number] Age: 81 Wt: 210.54lb Gender: Female BSA: 2.02 Order #: [id number] BMI: 35.04 Physicians Procedure Physician: Ronaldo Vivar MD, [facility] Referring MD: Referring MD: Staff Name Position Time In [facility] RT (R) Monitor 12:27 AM Floresita Melchor RN Dot Net Architect 12:28 AM Julee Mars RT Scrub 12:28 AM Indications Indication STEMI Procedures Performed Procedure L HRT ARTERY/VENTRICLE ANGIO CARDIOPULMONARY RESUSCITATION CARDIOVERSION, EXTERNAL ARTERIAL LINE INSERTION CENTRAL LINE PLACEMENT Pre-Procedure Checklist Informed consent is complete signed and on chart. H\\T\\P is on chart. ID band is on and ID verified with patient. Patient NPO for procedure The procedure was described for the patient and questions were answered. Blood Pressure: 103/46 ECG is on chart. Rhythm: NSR Plan of Care Patient will tolerate the procedure without complications. Adequate level of comfort will be maintained. Hemodynamics will remain stable Patient will recover from procedure without complications. Respiratory function will be maintained. Cardiac rhythm will remain stable. Patient temperature will be maintained. Patient and/or family have verbalized understanding of the procedure. Patient Education Chief Complaint/Reason for Test: Cardiac Cath Developmental Category: Geriatric (65+ years) Developmentally Appropriate for Age: Yes Learning Barriers: Sedated Education Needs: Procedure Education Method: Verbal Information Taught: Cardiac Cath Educational Evaluation: Able to repeat information Intravenous Access Time IV Size Location DC'd Fluid/Drip Rate Units RN 12:35 AM Started with 18g needle 1 1/4" Rt Antecubital Dopamine 10 Floresita Melchor RN 12:39 AM 22g 1" Patent On Arrival Lt Arm 0.9NaCl Floresita Melchor RN Allergies Penicillins Vital Signs Time BP (mmHg) HR (bpm) O2 Sat. RR (bpm) LOC 12:37 AM / % 1 = Reflexes present/moves spontaneously 12:21 AM 103 / 32 80 92 % 23 12:26 AM 101 / 46 77 98 % 23 12:34 AM 78 / 38 71 % 28 12:36 AM 82 / 33 72 96 % 12:38 AM 89 / 43 74 94 % 16 12:42 AM 99 / 37 75 99 % 43 12:44 AM 101 / 38 73 96 % 45 12:48 AM 103 / 34 72 97 % 42 12:53 AM 86 / 56 73 91 % 12:58 AM 84 / 37 77 92 % 01:02 AM 89 / 31 78 77 % 01:16 AM 127 / 68 7 % 10 01:20 AM 102 / 66 3 % 15 Procedural Medications Time Medication Dose Units Method Given By 12:30 AM Lidocaine 2% 1 ml Subcutaneous Ronaldo Vivar MD, FACC 12:36 AM Dopamine 15 ml/hr Intravenous 12:51 AM Oxygen L/min mechanical ventilator 12:57 AM Amiodarone 150 mg Intravenous Floresita Melchor RN 12:31 AM Nitroglycerin 200 mcg Verapamil 2.5 mg Intraarterial Ronaldo Vivar MD, [facility] ASA Classification: CLASS IV- Severe systemic that is constant threat to patient's life Emergent Procedure: ASA score is assumed Tamiko Score Preprocedure Postprocedure Activity 0- Unable to move extremities or lift head Activity 0- Unable to move extremities or lift head Circulation 1- SBP+/= 20 - 50 points of pre-anesthetic level Circulation 1- SBP+/= 20 - 50 points of pre-anesthetic level Consciousness 0- Non-responsive Consciousness 0- Non-responsive O2 Saturation 0- O2 saturation 90% even with O2 supplement O2 Saturation 0- O2 saturation 90% even with O2 supplement Respiratory 1- Labored or limited respiration requires airway Respiratory 1- Labored or limited respiration requires airway Total Score 2 Total Score 2 Contrast Agent: Isovue Diagnostic Contrast: 69 ml Total Contrast: 69 ml Fluoro Dose: 294 mGy Procedure Log Time Note Enter By 12:06 AM CathStat 12:11 AM Pt arrived to at 00:11 scoates 12:11 AM Patient charges- Angio tray pack, Navilyst 3mm J, Pulse Oximetry and ACIST tubing and transducer scoates 12:20 AM IV Supplies used: J loop Angio Cath. tsites 12:21 AM Vitals capture started with the following parameters, Patient=Adult, Interval=5 min, Initial Wvdwjrzz=360 mmHg, Deflation Rate=5 mmHg, Cuff placed on Left Arm 12:21 AM HR=80 bpm, WLCI=409/32 mmhg, SpO2=92.0 %, Resp=23 B/min 12:26 AM HR=77 bpm, FAMG=091/46 mmhg, SpO2=98 %, Resp=23 B/min 12:27 AM Recorded ECG: HR=76 Condition=Condition 1 12:27 AM Pressure channel 1 zeroed. 12:27 AM Physician arrived 00:27 scoates 12:28 AM Elida Soto (R) Position: Monitor Time in: 00:27 scoates 12:28 AM Ashok Haines RN , Gwendolyn Villanueva LINTER OPERATOR present tsites 12: AM Floresita Melchor RN Position: Dot Net Architect Time in: 00: scoates 12:28 AM Julee Mars RT Position: Scrub Time in: 00: scoates 12:28 AM Case Delayed No scoates 12:28 AM Hair removed from procedure site in holding area using clippers. Right wrist prepped with Chloraprep by Elida Soto (R), safety strap applied then patient was draped. Skin intact. scoates 12:29 AM Sign in performed according to hospital policy. scoates 12:29 AM Procedure start 00:29 scoates 12:30 AM Time: 00:51 Oxygen on per mechanical ventilator by respiratory tsites 12:31 AM Time: 00:30 1 ml Lidocaine 2% to right radial Subcutaneous Given by Ronaldo Vivar MD, [facility] scoates 12:31 AM Clinical Presentation: STEMI or equivalent scoates 12:31 AM Time out performed according to hospital policy scoates 12:31 AM Access obtained by percutaneous puncture. 5Fr 10cm Terumo Glidesheath sheath placed in right Radial artery. [id number] scoates 12:31 AM Time: 00:31 Patient given , 200 mcg Nitroglycerin, and 2.5 mg Verapamil Intraarterial by Ronaldo Vivar MD, [facility] tsites 12:31 AM 5Fr TIG catheter inserted over the wire [facility] scoates 12:32 AM 0.035 260cm Navilyst 3mmJ wire [id number] scoates 12:33 AM Vitals capture stopped. 12:33 AM Vitals capture started with the following parameters, Patient=Adult, Interval=5 min, Initial Hukuqocr=325 mmHg, Deflation Rate=5 mmHg, Cuff placed on Left Arm 12:34 AM Pressure channel 1 zeroed. 12:34 AM HR=71 bpm, NIBP=78/38 mmhg, Resp=28 B/min 12:35 AM NIBP STAT measurement started. 12:36 AM HR=72 bpm, NIBP=82/33 mmhg, SpO2=96 % 12:36 AM Time: 00:36 Dopamine 15 ml/hr Intravenous Given by Floresita Melchor RN scoates 12:37 AM Time: 00:37LOC: 1 = Reflexes present/moves spontaneously scoates 12:37 AM Recorded Pressure: Ao, HR=74, Condition=Condition 1 (Aorta) Ao 81/62/70 12:38 AM 5Fr FL3.5 catheter inserted over the wire [id number] scoates 12:38 AM HR=74 bpm, NIBP=89/43 mmhg, SpO2=94 %, Resp=16 B/min 12:39 AM LCA angiography performed in multiple views. scoates 12:42 AM 5Fr 3DRC catheter inserted over the wire [id number] tsites 12:42 AM NIBP STAT measurement started. 12:42 AM HR=75 bpm, NIBP=99/37 mmhg, SpO2=99.0 %, Resp=43 B/min 12:43 AM RCA angiography performed in multiple views. tsites 12:43 AM Recorded Pressure: Ao, HR=81, Condition=Condition 1 (Aorta) Ao 86/68/77 12:44 AM HR=73 bpm, IAWC=159/38 mmhg, SpO2=96 %, Resp=45 B/min 12:44 AM 5Fr Pigtail catheter inserted over the wire DNC tsites 12:45 AM Lesion found in Mid LAD. Pre Stenosis: 20 Pre JOSE GUADALUPE Flow: tsites 12:45 AM Lesion found in Proximal Circumflex. Pre Stenosis: 20 Pre JOSE GUADALUPE Flow: tsites 12:45 AM Mid/Distal Left Anterior Descending Coronary Artery and diagonal branches with 20% stenosis. If graft is supplying this area, 0 % stenosis tsites 12:45 AM Circumflex, Obtuse Marginal, Left Posterior Descending, and Left Posterolateral Coronary Arteries with 20 % stenosis. If graft is supplying this area, 0 % stenosis tsites 12:45 AM Coronary Dominance: right tsites 12:45 AM Catheter selectively placed in left ventricle tsites 12:46 AM Bolus angiogram of left Ventricle complete: 10 ml/sec for a total of 30 mls tsites 12:46 AM Recorded Pressure: LV, HR=43, Condition=Condition 1 (Left Ventricle) LV 104/17/30 12:47 AM Recorded Pressure: LV, Ao, HR=74, Condition=Condition 1 (Left Ventricle) LV 99/16/27, (Aorta) Ao 89/32/59 12:47 AM Catheter removed tsites 12:47 AM Procedure completed at 00:47 tsites 12:48 AM Sign out completed: Radiation Dose 294 mGy Fluoro Time: 2.5 Isovue 370 - 500ml contrast 69 ml given by Ronaldo Vivar MD, [facility]. Complications: NoneCardiac Rehab Consult needed: NoConfirmed administered medications: Yes tsites 12:48 AM Isovue 370 - 500ml,1 Bottle(s) used. tsites 12:48 AM Arterial sheath pulled, Vasc Band closure device used and was Successful S/N. tsites 12:48 AM HR=72 bpm, WMOQ=507/34 mmhg, SpO2=97 %, Resp=42 B/min 12:49 AM 11 ml air in Vasc Band. tsites 12:49 AM Post ECG NSR tsites 12:49 AM Post Blood Pressure 103/34 tsites 12:49 AM 00:49 Post Pulses Rt Radial 2+ tsites 12:49 AM Information taught Vasc Band tsites 12:49 AM Education needs Procedure, Plan of Care, and Responsibilities of Patient in Care tsites 12:50 AM Learning barriers :None tsites 12:50 AM Education Methods Verbal tsites 12:50 AM Education evaluation Able to repeat information tsites 12:50 AM Site status No bleeding/hematoma - Rt Wrist as reported by Julee Mars RT at 00:50 tsites 12:53 AM HR=73 bpm, NIBP=86/56 mmhg, SpO2=91 % 12:58 AM Time: 00:57 Amiodarone 150 mg Intravenous Given by Floresita Melchor RN tsites 12:58 AM HR=77 bpm, NIBP=84/37 mmhg, SpO2=92 % 01:00 AM Report given to chey PIERRE Pt taken to ICU Room #4. 02:48 tsites 01:02 AM NIBP STAT measurement started. 01:02 AM HR=78 bpm, NIBP=89/31 mmhg, SpO2=77 % 01:04 AM no pulse, pea cpr started tsites 01:04 AM 1 mg epi given tsites 01:05 AM Vitals capture stopped. 01:06 AM pulse check pea compressions resumed tsites 01:07 AM 1 mg epi given tsites 01:09 AM v tach shock at 200j resumed cpr tsites 01:10 AM 1 mg epi given tsites 01:10 AM Amanda Amador RN and Chey Monsivais RN tsites 01:11 AM vatach shock at 300j cpr resumed tsites 01:13 AM v tach 300j shock cpr resumed tsites 01:15 AM sinus tach pulse tsites 01:15 AM NIBP STAT measurement started. 01:16 AM central line placed 4 fr sheath inserted lt groin tsites 01:16 AM HR=7 bpm, AQOK=963/68 mmhg, Resp=10 B/min 01:19 AM Vitals capture started with the following parameters, Patient=Adult, Interval=5 min, Initial Sonxxkjg=053 mmHg, Deflation Rate=5 mmHg, Cuff placed on Left Arm 01:20 AM dopamine 20 mcg/kg tsites 01:20 AM HR=3 bpm, CAOK=036/66 mmhg, Resp=15 B/min 01:24 AM amiodarone bolus complete drip started at 1mg tsites 01:25 AM pea cpr started tsites 01:26 AM no pulse cpr resumed tsites 01:26 AM 1 mg epi given tsites 01:26 AM Vitals capture stopped. 01:28 AM pulse check v tach tsites 01:28 AM v tach shock at 300j cpr resumed tsites 01:30 AM 1 mg epi given tsites 01:31 AM pulse check vtach tsites 01:31 AM vtach shock 300j tsites 01:33 AM vtach shock at 360 tsites 01:34 AM 1 amp bicarb tsites 01:36 AM no pulse vtach tsites 01:36 AM shock at 360j tsites 01:37 AM 1 mg epi given tsites 01:38 AM vtach shock at 360j tsites 01:40 AM pulse check tsites 01:40 AM vtach shock at 360j tsites 01:40 AM 1mg epi given tsites 01:40 AM 150mg amiodarone given through cental line tsites 01:41 AM 1 amp bicarb tsites 01:42 AM pulse check pulse present . pt hooked up to transducer ao pressure 121/50 tsites 01:[address] Vivar spoke with family about code status . tsites 01:43 AM family changed patient to dnrcc tsites 01:47 AM Patient out of room: 01:47 tsites 01:47 AM patient transfered to icu bed status unchanged tsites 01:47 AM Patient out of room: 01:47 tsites Complications Complication None Hemodynamics Pressures Site Systolic/A Wave Diastolic/V Wave Mean AO 81 62 70 AO 86 68 77 LV 104 17 30 LV 99 16 27 AO 89 32 59 Post Procedure Information Blood Pressure: 103/34 mmHg Rhythm: NSR Post procedural instructions were given Closure Device Time Device Success/Fail Mechanical Compression Successful Site Checks Time Location Status Staff Sheath In? Note 12:50 AM Rt Wrist No bleeding/hematoma Julee Mars RT Pulses Time Site Pre-Procedure Post-Procedure Note Bilateral DP \\T\\ PT Doppler Bilateral radial 2+ 12:49:00 AM Rt Radial 2+ Updated by Elida Soto RT (R) on 11/16/2016 2:58:44 AM Elida Soto RT electronically signed on 11/16/2016 7:42:28 AM with status of Final
--- NOTE | 2016-11-16 07:47 | Invasive Diagnostic Lab Proc ---
Name: Katelynn Meyers Date of Study: 11/16/2016 Date: 1935 Ht: 65.0in Medical Record#: [id number] Age: 81 Wt: 210.54lb Gender: Female BSA: 2.02 Order #: [id number] BMI: 35.04 Physicians Procedure Physician: Ronaldo Vivar MD, [facility] Referring MD: Referring MD: Staff Name Position Time In [facility], [facility] RT (R) Monitor 12:27 AM Floresita Melchor RN Mastic Worker 12:28 AM Julee Mars RT Scrub 12:28 AM Indications Indication STEMI Procedures Performed Procedure L HRT ARTERY/VENTRICLE ANGIO CARDIOPULMONARY RESUSCITATION CARDIOVERSION, EXTERNAL ARTERIAL LINE INSERTION CENTRAL LINE PLACEMENT Pre-Procedure Checklist Informed consent is complete signed and on chart. H\\T\\P is on chart. ID band is on and ID verified with patient. Patient NPO for procedure The procedure was described for the patient and questions were answered. Blood Pressure: 103/46 ECG is on chart. Rhythm: NSR Plan of Care Patient will tolerate the procedure without complications. Adequate level of comfort will be maintained. Hemodynamics will remain stable Patient will recover from procedure without complications. Respiratory function will be maintained. Cardiac rhythm will remain stable. Patient temperature will be maintained. Patient and/or family have verbalized understanding of the procedure. Patient Education Chief Complaint/Reason for Test: Cardiac Cath Developmental Category: Geriatric (65+ years) Developmentally Appropriate for Age: Yes Learning Barriers: Sedated Education Needs: Procedure Education Method: Verbal Information Taught: Cardiac Cath Educational Evaluation: Able to repeat information Intravenous Access Time IV Size Location DC'd Fluid/Drip Rate Units RN 12:35 AM Started with 18g needle 1 1/4" Rt Antecubital Dopamine 10 Floresita Melchor RN 12:39 AM 22g 1" Patent On Arrival Lt Arm 0.9NaCl Floresita Melchor RN Allergies Penicillins Vital Signs Time BP (mmHg) HR (bpm) O2 Sat. RR (bpm) LOC 12:37 AM / % 1 = Reflexes present/moves spontaneously 12:21 AM 103 / 32 80 92 % 23 12:26 AM 101 / 46 77 98 % 23 12:34 AM 78 / 38 71 % 28 12:36 AM 82 / 33 72 96 % 12:38 AM 89 / 43 74 94 % 16 12:42 AM 99 / 37 75 99 % 43 12:44 AM 101 / 38 73 96 % 45 12:48 AM 103 / 34 72 97 % 42 12:53 AM 86 / 56 73 91 % 12:58 AM 84 / 37 77 92 % 01:02 AM 89 / 31 78 77 % 01:16 AM 127 / 68 7 % 10 01:20 AM 102 / 66 3 % 15 Procedural Medications Time Medication Dose Units Method Given By 12:30 AM Lidocaine 2% 1 ml Subcutaneous Ronaldo Vivar MD, FAC 12:36 AM Dopamine 15 ml/hr Intravenous 12:51 AM Oxygen L/min mechanical ventilator 12:57 AM Amiodarone 150 mg Intravenous Ruiz, Floresita PIERRE 12:31 AM Nitroglycerin 200 mcg Verapamil 2.5 mg Intraarterial Ronaldo Vivar MD, FAC 01:04 AM Epinephrine 1 mg Intravenous Ruiz, Floresita PIERRE 01:07 AM Epinephrine 1 mg Intravenous Ruiz, Floresita PIERRE 01:10 AM Epinephrine 1 mg Intravenous Ruiz, Floresita PIERRE 01:20 AM Dopamine 20 mg/kg/min Intravenous Ruiz, Floresita PIERRE 01:24 AM Amiodarone 33.3 ml/hr Intravenous [place], Floresita RN 01:26 AM Epinephrine 1 mg Intravenous Ruiz, Floresita RN 01:30 AM Epinephrine 1 mg Intravenous Ruiz, Floresita RN 01:33 AM Epinephrine 1 mg Intravenous Ruiz, Floresita RN 01:34 AM Sodium Bicarbonate 1 amp Intravenous Ruiz, Floresita RN 01:37 AM Epinephrine 1 mg Intravenous Ruiz, Floresita RN 01:40 AM Epinephrine 1 amp Intravenous [place], Floresita RN 01:40 AM Amiodarone 150 mg Intravenous Ruiz, Floresita PIERRE 01:41 AM Sodium Bicarbonate 1 amp Intravenous Ruiz, Floresita PIERRE ASA Classification: CLASS IV- Severe systemic that is constant threat to patient's life Emergent Procedure: ASA score is assumed Tamiko Score Preprocedure Postprocedure Activity 0- Unable to move extremities or lift head Activity 0- Unable to move extremities or lift head Circulation 1- SBP+/= 20 - 50 points of pre-anesthetic level Circulation 1- SBP+/= 20 - 50 points of pre-anesthetic level Consciousness 0- Non-responsive Consciousness 0- Non-responsive O2 Saturation 0- O2 saturation 90% even with O2 supplement O2 Saturation 0- O2 saturation 90% even with O2 supplement Respiratory 1- Labored or limited respiration requires airway Respiratory 1- Labored or limited respiration requires airway Total Score 2 Total Score 2 Contrast Agent: Isovue Diagnostic Contrast: 69 ml Total Contrast: 69 ml Fluoro Dose: 294 mGy Procedure Log Time Note Enter By 12:06 AM CathStat 12:11 AM Pt arrived to at 00:11 scoates 12:11 AM Patient charges- Angio tray pack, Navilyst 3mm J, Pulse Oximetry and ACIST tubing and transducer scoates 12:20 AM IV Supplies used: J loop Angio Cath. tsites 12:21 AM Vitals capture started with the following parameters, Patient=Adult, Interval=5 min, Initial Moowmcvc=402 mmHg, Deflation Rate=5 mmHg, Cuff placed on Left Arm 12:21 AM HR=80 bpm, GLEJ=515/32 mmhg, SpO2=92.0 %, Resp=23 B/min 12:26 AM HR=77 bpm, WESH=966/46 mmhg, SpO2=98 %, Resp=23 B/min 12:27 AM Recorded ECG: HR=76 Condition=Condition 1 12:27 AM Pressure channel 1 zeroed. 12:27 AM Physician arrived 00:27 scoates 12:28 AM Elida Soto RT (R) Position: Monitor Time in: 00:27 scoates 12:28 AM Ashok Haines RN , Gwendolyn Villanueva [employer] present tsites 12:28 AM Floresita Melchor RN Position: Mastic Worker Time in: 00:28 scoates 12:28 AM Julee Mars RT Position: Scrub Time in: 00:28 scoates 12:28 AM Case Delayed No scoates 12:28 AM Hair removed from procedure site in holding area using clippers. Right wrist prepped with Chloraprep by Elida Soto RT (R), safety strap applied then patient was draped. Skin intact. scoates 12:29 AM Sign in performed according to hospital policy. scoates 12:29 AM Procedure start 00:29 scoates 12:30 AM Time: 00:51 Oxygen on per mechanical ventilator by respiratory tsites 12:31 AM Time: 00:30 1 ml Lidocaine 2% to right radial Subcutaneous Given by Ronaldo Vivar MD, [facility] scoates 12:31 AM Clinical Presentation: STEMI or equivalent scoates 12:31 AM Time out performed according to hospital policy scoates 12:31 AM Access obtained by percutaneous puncture. 5Fr 10cm Terumo Glidesheath sheath placed in right Radial artery. [id number] scoates 12:31 AM Time: 00:31 Patient given , 200 mcg Nitroglycerin, and 2.5 mg Verapamil Intraarterial by Ronaldo Vivar MD, [facility] tsites 12:31 AM 5Fr TIG catheter inserted over the wire DN scoates 12:32 AM 0.035 260cm Navilyst 3mmJ wire [id number] scoates 12:33 AM Vitals capture stopped. 12:33 AM Vitals capture started with the following parameters, Patient=Adult, Interval=5 min, Initial Zogrietg=751 mmHg, Deflation Rate=5 mmHg, Cuff placed on Left Arm 12:34 AM Pressure channel 1 zeroed. 12:34 AM HR=71 bpm, NIBP=78/38 mmhg, Resp=28 B/min 12:35 AM NIBP STAT measurement started. 12:36 AM HR=72 bpm, NIBP=82/33 mmhg, SpO2=96 % 12:36 AM Time: 00:36 Dopamine 15 ml/hr Intravenous Given by Floresita Melchor RN scoates 12:37 AM Time: 00:37LOC: 1 = Reflexes present/moves spontaneously scoates 12:37 AM Recorded Pressure: Ao, HR=74, Condition=Condition 1 (Aorta) Ao 81/62/70 12:38 AM 5Fr FL3.5 catheter inserted over the wire [id number] scoates 12:38 AM HR=74 bpm, NIBP=89/43 mmhg, SpO2=94 %, Resp=16 B/min 12:39 AM LCA angiography performed in multiple views. scoates 12:42 AM 5Fr 3DRC catheter inserted over the wire [id number] tsites 12:42 AM NIBP STAT measurement started. 12:42 AM HR=75 bpm, NIBP=99/37 mmhg, SpO2=99.0 %, Resp=43 B/min 12:43 AM RCA angiography performed in multiple views. tsites 12:43 AM Recorded Pressure: Ao, HR=81, Condition=Condition 1 (Aorta) Ao 86/68/77 12:44 AM HR=73 bpm, LJLQ=944/38 mmhg, SpO2=96 %, Resp=45 B/min 12:44 AM 5Fr Pigtail catheter inserted over the wire DNC tsites 12:45 AM Lesion found in Mid LAD. Pre Stenosis: 20 Pre JOSE GUADALUPE Flow: tsites 12:45 AM Lesion found in Proximal Circumflex. Pre Stenosis: 20 Pre JOSE GUADALUPE Flow: tsites 12:45 AM Mid/Distal Left Anterior Descending Coronary Artery and diagonal branches with 20% stenosis. If graft is supplying this area, 0 % stenosis tsites 12:45 AM Circumflex, Obtuse Marginal, Left Posterior Descending, and Left Posterolateral Coronary Arteries with 20 % stenosis. If graft is supplying this area, 0 % stenosis tsites 12:45 AM Coronary Dominance: right tsites 12:45 AM Catheter selectively placed in left ventricle tsites 12:46 AM Bolus angiogram of left Ventricle complete: 10 ml/sec for a total of 30 mls tsites 12:46 AM Recorded Pressure: LV, HR=43, Condition=Condition 1 (Left Ventricle) LV 104/17/30 12:47 AM Recorded Pressure: LV, Ao, HR=74, Condition=Condition 1 (Left Ventricle) LV 99/16/27, (Aorta) Ao 89/32/59 12:47 AM Catheter removed tsites 12:47 AM Procedure completed at 00:47 tsites 12:48 AM Sign out completed: Radiation Dose 294 mGy Fluoro Time: 2.5 Isovue 370 - 500ml contrast 69 ml given by Ronaldo Vivar MD, [facility]. Complications: NoneCardiac Rehab Consult needed: NoConfirmed administered medications: Yes tsites 12:48 AM Isovue 370 - 500ml,1 Bottle(s) used. tsites 12:48 AM Arterial sheath pulled, Vasc Band closure device used and was Successful S/N. tsites 12:48 AM HR=72 bpm, LOJZ=684/34 mmhg, SpO2=97 %, Resp=42 B/min 12:49 AM 11 ml air in Vasc Band. tsites 12:49 AM Post ECG NSR tsites 12:49 AM Post Blood Pressure 103/34 tsites 12:49 AM 00:49 Post Pulses Rt Radial 2+ tsites 12:49 AM Information taught Vasc Band tsites 12:49 AM Education needs Procedure, Plan of Care, and Responsibilities of Patient in Care tsites 12:50 AM Learning barriers :None tsites 12:50 AM Education Methods Verbal tsites 12:50 AM Education evaluation Able to repeat information tsites 12:50 AM Site status No bleeding/hematoma - Rt Wrist as reported by Julee Mars RT at 00:50 tsites 12:53 AM HR=73 bpm, NIBP=86/56 mmhg, SpO2=91 % 12:58 AM Time: 00:57 Amiodarone 150 mg Intravenous Given by Floresita Melchor RN tsites 12:58 AM HR=77 bpm, NIBP=84/37 mmhg, SpO2=92 % 01:00 AM Report given to chey PIERRE Pt taken to ICU Room #4. 01:00 tsites 01:02 AM NIBP STAT measurement started. 01:02 AM HR=78 bpm, NIBP=89/31 mmhg, SpO2=77 % 01:04 AM no pulse, pea cpr started tsites 01:04 AM 1 mg epi given tsites 01:05 AM Vitals capture stopped. 01:06 AM pulse check pea compressions resumed tsites 01:07 AM 1 mg epi given tsites 01:09 AM v tach shock at 200j resumed cpr tsites 01:10 AM 1 mg epi given tsites 01:10 AM Amanda Amador RN and Chey Monsivais RN tsites 01:11 AM vatach shock at 300j cpr resumed tsites 01:13 AM v tach 300j shock cpr resumed tsites 01:15 AM sinus tach pulse tsites 01:15 AM NIBP STAT measurement started. 01:16 AM central line placed 4 fr sheath inserted lt groin tsites 01:16 AM HR=7 bpm, HKUE=231/68 mmhg, Resp=10 B/min 01:19 AM Vitals capture started with the following parameters, Patient=Adult, Interval=5 min, Initial Fjonvnex=553 mmHg, Deflation Rate=5 mmHg, Cuff placed on Left Arm 01:20 AM dopamine 20 mcg/kg tsites 01:20 AM HR=3 bpm, EAHP=046/66 mmhg, Resp=15 B/min 01:24 AM amiodarone bolus complete drip started at 1mg tsites :25 AM pea cpr started tsites :26 AM no pulse cpr resumed tsites :26 AM 1 mg epi given tsites 01:26 AM Vitals capture stopped. 01:28 AM pulse check v tach tsites :28 AM v tach shock at 300j cpr resumed tsites 01:30 AM 1 mg epi given tsites : AM pulse check vtach tsites 01:31 AM vtach shock 300j tsites 01:33 AM vtach shock at 360 tsites 01:33 AM 1 mg epi given tsites 01:34 AM 1 amp bicarb tsites 01:36 AM no pulse vtach tsites 01:36 AM shock at 360j tsites 01:37 AM 1 mg epi given tsites 01:38 AM vtach shock at 360j tsites 01:40 AM pulse check tsites 01:40 AM vtach shock at 360j tsites 01:40 AM 1mg epi given tsites 01:40 AM 150mg amiodarone given through cental line tsites 01:41 AM 1 amp bicarb tsites 01:42 AM pulse check pulse present . pt hooked up to transducer ao pressure 121/50 tsites 01:[address] Vivar spoke with family about code status . tsites 01:43 AM family changed patient to dnrcc tsites 01:47 AM Patient out of room: 01:47 tsites 01:47 AM patient transfered to icu bed status unchanged tsites 01:47 AM Patient out of room: 01:47 tsites Complications Complication None Hemodynamics Pressures Site Systolic/A Wave Diastolic/V Wave Mean AO 81 62 70 AO 86 68 77 LV 104 17 30 LV 99 16 27 AO 89 32 59 Post Procedure Information Blood Pressure: 103/34 mmHg Rhythm: NSR Post procedural instructions were given Closure Device Time Device Success/Fail Mechanical Compression Successful Site Checks Time Location Status Staff Sheath In? Note 12:50 AM Rt Wrist No bleeding/hematoma Julee Mars RT Pulses Time Site Pre-Procedure Post-Procedure Note Bilateral DP \\T\\ PT Doppler Bilateral radial 2+ 12:49:00 AM Rt Radial 2+ Updated by Elida Soto RT (R) on 11/16/2016 7:40:50 AM Elida Soto RT electronically signed on 11/16/2016 7:42:35 AM with status of Final
== END 2016-11-11 13:10 | DRG 871 ==
LOC: EMEROO 15:29 → 2NNU 15:29 → ICNU 11-02 04:28 → SUATTDRO 11-02 05:22 → 2ANU 11-05 18:57 → 2NNU 11-06 15:02
PROVIDERS: ADMIT Internal Medicine; ATTEND Internal Medicine
PROC: IRPERMA (2016-11-06 12:00)

== ENCOUNTER 2016-11-15 23:03 | Inpatient (IN) ==
[2016-11-15] MEDS ORDERED: Heparin 1,000 UNITS/500 mL NS 500 ML ONE (23:31)
[2016-11-15] MEDS ORDERED: *HR* Heparin 10,000 UNIT/10 ML VIAL ONE (23:31)
[2016-11-15] MEDS ORDERED: Verapamil 5 MG/2 ML VIAL ONE (23:31)
[2016-11-15] MEDS ORDERED: Nitroglycerin 1,000 MCG/10 ML VIAL IV ONE (23:31)
--- NOTE | 2016-11-16 00:14 | Pre-Sedation Evaluation ---
Pre-sedation evaluation - Pre-sedation checklist Date of procedure: 11/16/16 Procedure: [facility] Recent Vitals: as documented in EMR. critical s/p STEMI cardiac arrest H&P (including ROS) documented in medical record: Yes Previous reaction to sedatives/anesthetics: No Dietary Status: NPO after Midnight ASA Classification *see protocol: CLASS II-Mild systemic disease, E-EMERGENCY- Add to any of the above to indicate emergent Plan of Care: Pt appropriate candidate for procedure/moderate/conscious sedation , Risks/benefits of procedure/sedation discussed w/ patient/family, If not NPO; Risk of intake outweiged by necessity to perform procedure
--- NOTE | 2016-11-16 00:16 | Cardiology History & Physical ---
Date of Encounter: 11/16/16 Time of Encounter: 00:15 Assessment and Plan (1) STEMI (ST elevation myocardial infarction) Status: Acute Emergent LHC to evaluate for disease given VF arrest. The assessment and plan as outlined above was discussed with the patient and/or family members who expressed understanding and agreement. All questions were answered. Qualifiers: Involved coronary artery: unspecified coronary artery Qualified Code(s): I21.3 - ST elevation (STEMI) myocardial infarction of unspecified site (2) Cardiac arrest Status: Acute Emergent LHC to evaluate for occluded vessel. The assessment and plan as outlined above was discussed with the patient and/or family members who expressed understanding and agreement. All questions were answered. (3) ESRD (end stage renal disease) on dialysis Status: Chronic The assessment and plan as outlined above was discussed with the patient and/or family members who expressed understanding and agreement. All questions were answered. History of Present Illness Chief complaint: cardiac arrest - stemi HPI: Ms. Meyers is a 81 year old female ESRD s/p trach with history of unspecified CHF and s/p PPM found in senior living to be in cardiac arrest. Initial rhythm asystole, received CPR then had VF arrest x 2 with multiple defibrillations with a total of 3 rounds of CPR and received CPR en route from [place] ED. Patient did have ROSC but without any spontaneous movement. Family wanted all heroic measures to be continued understanding grim prognosis. Past Med Surg Social Fam HX - Past Medical History Medical history: atrial fibrillation, hypertension, renal disease, other Psychiatric history: no psych history - Past Surgical History Surgical History: tracheostomy - Social History Smoking Status: Unknown if ever smoked Smokeless Tobacco Status: No Alcohol use: none Drug use: none Medications and Allergies Bisacodyl [Dulcolax] 10 mg RC DAILY 09/05/16 [History] Dorzolamide [Trusopt] 1 drop RIGHT EYE BID 09/05/16 [History] Ergocalciferol (VITAMIN D2) [Vitamin D2] 50,000 unit GTUBE QWEEK 09/05/16 [ History] Metoclopramide HCl 5 mg GTUBE DAILY 09/05/16 [History] OLANZapine [Zyprexa] 2.5 mg GTUBE DAILY 09/05/16 [History] Famotidine [Heartburn Prevention] 20 mg GTUBE DAILY 11/01/16 [History] Warfarin [Coumadin] 3 mg GTUBE DAILY 11/01/16 [History] Darbepoetin [Aranesp] 60 mcg SQ QWEEK syringe 11/11/16 [Rx] GuaiFENesin Liq [Robitussin Liq] 200 mg GTUBE Q6HR PRN #0 udc 11/11/16 [Rx] Ipratropium Neb [Atrovent Neb] 0.5 mg IH [id number] inhsol 11/11/16 [Rx] Levalbuterol Neb [Xopenex Neb] 1.25 mg IH [id number] #0 vial.neb 11/11/16 [Rx] Midodrine [ProAmatine] 5 mg PO 0800,1200,1700 tablet 11/11/16 [Rx] Allergies Penicillins Allergy (Verified 09/05/16 08:17) Hives ROS unobtainable: due to mental status All Systems Review: A 10-system review of systems was performed and is negative for pertinent findings except as documented above in the HPI. Physical Examination General: Other (obtunded, nonresponsive) HEENT: Atraumatic Neck: No JVD Cardiac: Reg Rate and Rhythm Lungs: Other (coarse breath sounds) Neuro: Other (obtunded) Abdomen: Soft Skin: No rashes noted on visualized skin Extremities: No Edema, Normal Pulses Results - EKG Interpretation EKG results cardiology: personally reviewed
[2016-11-16] MEDS ORDERED: Amiodarone 150 MG in D5% in Water 100 ML IVPB ONE (00:51)
[2016-11-16] MEDS ORDERED: Amiodarone Premix 150 MG/100 ML BAG IVPB ONE (00:56)
[2016-11-16] MEDS ORDERED: FentaNYL (PF) 1,000 MCG in 0.9 % Sodium Chloride 80 ML IVC SCH (01:00)
[2016-11-16] MEDS ORDERED: Heparin 25,000 UNIT/500 ML D5W 25,000 UNIT/500 ML MLS IVC SCH (01:00)
[2016-11-16] MEDS ORDERED: Norepinephrine 4 MG in D5% in Water 250 ML IVC SCH (01:00)
[2016-11-16] MEDS ORDERED: Heparin 1,000 UNITS/500 mL NS 500 ML ONE (01:23)
--- NOTE | 2016-11-16 01:52 | Event Note ---
Date of Encounter: 11/16/16 Time of Encounter: 02:30 - Cardiology Event Note After C showing no obstructive CAD and normal EF, patient went into cardiac arrest. She underwent vigorous ACLS for approximately 20 minutes with good pulsatile flow. Central line and arterial line placed. Discussed situation with family, she was made DNR CCA, no further ACLS to be performed. She had return of pulse and was transferred to the ICU.
[2016-11-16] MEDS ORDERED: 0.9 % Sodium Chloride 500 ML ONE (02:01)
[2016-11-16] MEDS ORDERED: 0.9 % Sodium Chloride 1,000 ML ONE (02:27)
[2016-11-16] MEDS ORDERED: *HR* EPINEPHrine 1 MG/ML AMPUL ONE (02:29)
--- NOTE | 2016-11-16 02:48 | Death Note ---
Pronouncement Note - Date and Time of Date of : 11/16/16 Time of : 02:38 - PCOD Preliminary cause of : Cardiac arrest - Summary Additional details: RAPID RESPONSE Mrs. Katelynn Meyers is a 81-year-old female [facility] resident with hemodialysis dependent ESRD, chronic diastolic CHF/cardiomyopathy status post permanent pacemaker, paroxysmal atrial fibrillation, hypertension, BLAYNE/OHS, tracheostomy dependent chronic respiratory failure, anemia of chronic disease, mood disorder unspecified, obesity with deconditioning. Chronic anticoagulation therapy (Warfarin) recently discontinued due to gastrointestinal bleed and acute blood loss anemia requiring discontinuance of all chronic anticoagulation. The patient was found to the [facility] to be in cardiac arrest. Initial rhythm assessment found asystole with ventricular fibrillation. The patient underwent advanced cardiac life support protocols for acute cardiac arrest 2 with multiple defibrillations. Postresuscitation EKG showed ST elevation in aVR V1 and V2. Patient had ROSC (return of spontaneous circulation) but without spontaneous movements. Family initially wished all heroic measures to be continued understanding overall grim prognosis. Left heart catheterization showed non- obstructive CAD and normal EF. Patient unfortunately went into pulseless ventricular tachycardia. She underwent vigorous ACLS for approximately 20 minutes with good pulsatile flow return. Central line and arterial line was placed. The case was once again discussed with the family. She was then made DO NOT RESUSCITATE comfort care arrest. No further ACLS to be performed. She had return of pulse with pacemaker capture noted. She was transferred to the intensive care unit on ventilator support. At 02:38 hours the patient was declared . Pacemaker no longer was sensing and capturing. No measurable blood pressure was apparent. Respirations were dependent on mechanical ventilation. Pupils were fixed and dilated. Anoxic posturing apparent. No inducible reflexes. No independent heartbeats or respirations documented. Family was contacted and speaking to her eldest daughter as proxy for surviving family members, permission was given to withdraw all supportive measures ( pharmacologic and mechanical). Sincere condolences were extended to the family members by all attending staff. Intake and Output 11/15/16 11/15/16 11/16/16 15:59 23:59 07:59 Other: Weight 95.254 kg - Additional Data Confirmation of : no pulse, no respirations, no heart sounds, pupils fixed and dilated Family: contacted Additional persons at bedside: other Attending/PCP notified?: Yes Attending physician: Ronaldo Vivar MD . Was code activated?: No Autopsy requested?: No securities compliance examiner notified?: No Organ bank notified?: No Advance directives: Yes (DNR comfort care arrest)
[2016-11-16] MEDS ORDERED: *HR* EPINEPHrine 1 MG/10 ML SYRINGE IVP ONE ×2 (05:08)
[2016-11-16] MEDS ORDERED: *HR* Amiodarone Premix 150 MG/100 ML BAG IVPB ONE (05:08)
[2016-11-16] MEDS ORDERED: *HR* Amiodarone Premix 360 MG/200 ML BAG IVC ONE (05:08)
--- NOTE | 2016-11-19 10:38 | Invasive Diagnostic Lab ---
Name: Katelynn Meyers Date of Study: 11/16/2016 Date: 1935 Ht: 165.1 cm /65.0 in Medical Record#: [id number] Age: 81 Wt: 95.5 kg / 210.54 lb Account/Order#: [id number] Gender: Female BSA: 2.02 Order #: [id number] Fluoro Dose: 294 mGy BMI: 35.04 Procedure Physician: Ronaldo Vivar MD, FACC Referring MD: Referring MD: Procedures Performed: LEFT HEART CATH CARDIOPULMONARY RESUSCITATION CARDIOVERSION, EXTERNAL ARTERIAL LINE INSERTION CENTRAL LINE PLACEMENT ACLS / CPR Indications: Cardiac arrest - ventricular fibrillation Impressions: Mild coronary artery disease. The left ventricle is normal and has normal contractility EF 70% Recommendations: Optimal medical therapy of patient's disease. Aggressive risk factor modification. History/Risk Factors: renal dx trach Diabetes CHF Procedure Access obtained in the right Radial artery by percutaneous puncture for LHC. This sheath was removed and TR band placed. After LHC completed, patient went into cardiac arrest. ACLS was performed with defibrillation for approximately 20 minutes until ROSC. Central line was placed in the left femoral vein and arterial line in the left femoral artery. Complications: None Contrast: Isovue 69ml Closure Device: Mechanical Compression Hemodynamics: Pressures Site Systolic/ A Wave Diastolic/ V Wave End Diastolic/ Mean HR AO 81 62 70 74 AO 86 68 77 81 LV 104 17 30 43 LV 99 16 27 78 AO 89 32 59 73 LV Ventriculography Ejection Method: LV Gram Ejection Fraction: 70% Wall Motion: SON Anterobasal Normal Anterolateral Normal Apical: Normal Inferoapical Normal Inferobasal Normal Coronary Dominance: right Lesion Findings/Interventions * Left Main Coronary Artery The LMCA is angiographically free of disease. * Left Anterior Descending There is a 20% stenosis in the Mid LAD. * Circumflex There is a 20% stenosis in the Proximal Circumflex. * Ramus The Ramus is angiographically free of disease. * Right Coronary Artery The RCA is angiographically free of disease. The Right PDA is angiographically free of disease. Updated by RT Ketty(R) on 11/16/2016 8:15:49 AM Ronaldo Vivar MD, FACC electronically signed on 11/19/2016 10:32:50 AM with status of Final
--- NOTE | 2016-11-19 12:15 | Invasive Diagnostic Lab Proc ---
Name: Katelynn Meyers Date of Study: 11/16/2016 Date: 1935 Ht: 65.0in Medical Record#: [id number] Age: 81 Wt: 210.54lb Gender: Female BSA: 2.02 Order #: [id number] BMI: 35.04 Physicians Procedure Physician: Ronaldo Vivar MD, [facility] Referring MD: Referring MD: Staff Name Position Time In [facility] RT (R) Monitor 12:27 AM Floresita Melchor RN Branch Examiner 12:28 AM Julee Mars RT Scrub 12:28 AM Indications Indication STEMI Procedures Performed Procedure L HRT ARTERY/VENTRICLE ANGIO CARDIOPULMONARY RESUSCITATION CARDIOVERSION, EXTERNAL ARTERIAL LINE INSERTION CENTRAL LINE PLACEMENT Pre-Procedure Checklist Informed consent is complete signed and on chart. H\\T\\P is on chart. ID band is on and ID verified with patient. Patient NPO for procedure The procedure was described for the patient and questions were answered. Blood Pressure: 103/46 ECG is on chart. Rhythm: NSR Plan of Care Patient will tolerate the procedure without complications. Adequate level of comfort will be maintained. Hemodynamics will remain stable Patient will recover from procedure without complications. Respiratory function will be maintained. Cardiac rhythm will remain stable. Patient temperature will be maintained. Patient and/or family have verbalized understanding of the procedure. Patient Education Chief Complaint/Reason for Test: Cardiac Cath Developmental Category: Geriatric (65+ years) Developmentally Appropriate for Age: Yes Learning Barriers: Sedated Education Needs: Procedure Education Method: Verbal Information Taught: Cardiac Cath Educational Evaluation: Able to repeat information Intravenous Access Time IV Size Location DC'd Fluid/Drip Rate Units RN 12:35 AM Started with 18g needle 1 1/4" Rt Antecubital Dopamine 10 Floresita Melchor RN 12:39 AM 22g 1" Patent On Arrival Lt Arm 0.9NaCl Floresita Melchor RN Allergies Penicillins Vital Signs Time BP (mmHg) HR (bpm) O2 Sat. RR (bpm) LOC 12:37 AM / % 1 = Reflexes present/moves spontaneously 12:21 AM 103 / 32 80 92 % 23 12:26 AM 101 / 46 77 98 % 23 12:34 AM 78 / 38 71 % 28 12:36 AM 82 / 33 72 96 % 12:38 AM 89 / 43 74 94 % 16 12:42 AM 99 / 37 75 99 % 43 12:44 AM 101 / 38 73 96 % 45 12:48 AM 103 / 34 72 97 % 42 12:53 AM 86 / 56 73 91 % 12:58 AM 84 / 37 77 92 % 01:02 AM 89 / 31 78 77 % 01:16 AM 127 / 68 7 % 10 01:20 AM 102 / 66 3 % 15 Procedural Medications Time Medication Dose Units Method Given By 12:30 AM Lidocaine 2% 1 ml Subcutaneous Ronaldo Vivar MD, FACC 12:36 AM Dopamine 15 ml/hr Intravenous 12:51 AM Oxygen L/min mechanical ventilator 12:57 AM Amiodarone 150 mg Intravenous Ruiz, Floresita PIERRE 12:31 AM Nitroglycerin 200 mcg Verapamil 2.5 mg Intraarterial Ronaldo Vivar MD, FACC 01:04 AM Epinephrine 1 mg Intravenous Ruiz, Floresita PIERRE 01:07 AM Epinephrine 1 mg Intravenous Ruiz, Floresita PIERRE 01:10 AM Epinephrine 1 mg Intravenous Ruiz, Floresita PIERRE 01:20 AM Dopamine 20 mg/kg/min Intravenous Ruiz, Floresita PIERRE 01:24 AM Amiodarone 33.3 ml/hr Intravenous [place], Floresita RN 01:26 AM Epinephrine 1 mg Intravenous Ruiz, Floresita RN 01:30 AM Epinephrine 1 mg Intravenous Ruiz, Floresita RN 01:33 AM Epinephrine 1 mg Intravenous Ruiz, Floresita RN 01:34 AM Sodium Bicarbonate 1 amp Intravenous Ruiz, Floresita RN 01:37 AM Epinephrine 1 mg Intravenous Uriz, Floresita RN 01:40 AM Epinephrine 1 amp Intravenous [place], Floresita RN 01:40 AM Amiodarone 150 mg Intravenous Ruiz, Floresita PIERRE 01:41 AM Sodium Bicarbonate 1 amp Intravenous Ruiz, Floresita PIERRE ASA Classification: CLASS IV- Severe systemic that is constant threat to patient's life Emergent Procedure: ASA score is assumed Tamiko Score Preprocedure Postprocedure Activity 0- Unable to move extremities or lift head Activity 0- Unable to move extremities or lift head Circulation 1- SBP+/= 20 - 50 points of pre-anesthetic level Circulation 1- SBP+/= 20 - 50 points of pre-anesthetic level Consciousness 0- Non-responsive Consciousness 0- Non-responsive O2 Saturation 0- O2 saturation 90% even with O2 supplement O2 Saturation 0- O2 saturation 90% even with O2 supplement Respiratory 1- Labored or limited respiration requires airway Respiratory 1- Labored or limited respiration requires airway Total Score 2 Total Score 2 Contrast Agent: Isovue Diagnostic Contrast: 69 ml Total Contrast: 69 ml Fluoro Dose: 294 mGy Procedure Log Time Note Enter By 12:06 AM CathStat 12:11 AM Pt arrived to at 00:11 scoates 12:11 AM Patient charges- Angio tray pack, Navilyst 3mm J, Pulse Oximetry and ACIST tubing and transducer scoates 12:20 AM IV Supplies used: J loop Angio Cath. tsites 12:21 AM Vitals capture started with the following parameters, Patient=Adult, Interval=5 min, Initial Tenxizso=330 mmHg, Deflation Rate=5 mmHg, Cuff placed on Left Arm 12:21 AM HR=80 bpm, ISVB=229/32 mmhg, SpO2=92.0 %, Resp=23 B/min 12:26 AM HR=77 bpm, JKDG=888/46 mmhg, SpO2=98 %, Resp=23 B/min 12:27 AM Recorded ECG: HR=76 Condition=Condition 1 12:27 AM Pressure channel 1 zeroed. 12:27 AM Physician arrived 00:27 scoates 12:28 AM Elida Soto RT (R) Position: Monitor Time in: 00:27 scoates 12:28 AM Ashok Haines RN , Gwendolyn Villanueva LEASING AGENT present tsites 12:28 AM Floresita Melchor RN Position: Branch Examiner Time in: 00:28 scoates 12:28 AM Julee Mars RT Position: Scrub Time in: 00:28 scoates 12:28 AM Case Delayed No scoates 12:28 AM Hair removed from procedure site in holding area using clippers. Right wrist prepped with Chloraprep by Elida Soto (R), safety strap applied then patient was draped. Skin intact. scoates 12:29 AM Sign in performed according to hospital policy. scoates 12:29 AM Procedure start 00:29 scoates 12:30 AM Time: 00:51 Oxygen on per mechanical ventilator by respiratory tsites 12:31 AM Time: 00:30 1 ml Lidocaine 2% to right radial Subcutaneous Given by Ronaldo Vivar MD, [facility] scoates 12:31 AM Clinical Presentation: STEMI or equivalent scoates 12:31 AM Time out performed according to hospital policy scoates 12:31 AM Access obtained by percutaneous puncture. 5Fr 10cm Terumo Glidesheath sheath placed in right Radial artery. [id number] scoates 12:31 AM Time: 00:31 Patient given , 200 mcg Nitroglycerin, and 2.5 mg Verapamil Intraarterial by Ronaldo Vivar MD, [facility] tsites 12:31 AM 5Fr TIG catheter inserted over the wire DN scoates 12:32 AM 0.035 260cm Navilyst 3mmJ wire [id number] scoates 12:33 AM Vitals capture stopped. 12:33 AM Vitals capture started with the following parameters, Patient=Adult, Interval=5 min, Initial Htqeehse=228 mmHg, Deflation Rate=5 mmHg, Cuff placed on Left Arm 12:34 AM Pressure channel 1 zeroed. 12:34 AM HR=71 bpm, NIBP=78/38 mmhg, Resp=28 B/min 12:35 AM NIBP STAT measurement started. 12:36 AM HR=72 bpm, NIBP=82/33 mmhg, SpO2=96 % 12:36 AM Time: 00:36 Dopamine 15 ml/hr Intravenous Given by Floresita Melchor RN scoates 12:37 AM Time: 00:37LOC: 1 = Reflexes present/moves spontaneously scoates 12:37 AM Recorded Pressure: Ao, HR=74, Condition=Condition 1 (Aorta) Ao 81/62/70 12:38 AM 5Fr FL3.5 catheter inserted over the wire [id number] scoates 12:38 AM HR=74 bpm, NIBP=89/43 mmhg, SpO2=94 %, Resp=16 B/min 12:39 AM LCA angiography performed in multiple views. scoates 12:42 AM 5Fr 3DRC catheter inserted over the wire [id number] tsites 12:42 AM NIBP STAT measurement started. 12:42 AM HR=75 bpm, NIBP=99/37 mmhg, SpO2=99.0 %, Resp=43 B/min 12:43 AM RCA angiography performed in multiple views. tsites 12:43 AM Recorded Pressure: Ao, HR=81, Condition=Condition 1 (Aorta) Ao 86/68/77 12:44 AM HR=73 bpm, QTKL=123/38 mmhg, SpO2=96 %, Resp=45 B/min 12:44 AM 5Fr Pigtail catheter inserted over the wire DNC tsites 12:45 AM Lesion found in Mid LAD. Pre Stenosis: 20 Pre JOSE GUADALUPE Flow: tsites 12:45 AM Lesion found in Proximal Circumflex. Pre Stenosis: 20 Pre JOSE GUADALUPE Flow: tsites 12:45 AM Mid/Distal Left Anterior Descending Coronary Artery and diagonal branches with 20% stenosis. If graft is supplying this area, 0 % stenosis tsites 12:45 AM Circumflex, Obtuse Marginal, Left Posterior Descending, and Left Posterolateral Coronary Arteries with 20 % stenosis. If graft is supplying this area, 0 % stenosis tsites 12:45 AM Coronary Dominance: right tsites 12:45 AM Catheter selectively placed in left ventricle tsites 12:46 AM Bolus angiogram of left Ventricle complete: 10 ml/sec for a total of 30 mls tsites 12:46 AM Recorded Pressure: LV, HR=43, Condition=Condition 1 (Left Ventricle) LV 104/17/30 12:47 AM Recorded Pressure: LV, Ao, HR=74, Condition=Condition 1 (Left Ventricle) LV 99/16/27, (Aorta) Ao 89/32/59 12:47 AM Catheter removed tsites 12:47 AM Procedure completed at 00:47 tsites 12:48 AM Sign out completed: Radiation Dose 294 mGy Fluoro Time: 2.5 Isovue 370 - 500ml contrast 69 ml given by Ronaldo Vivar MD, [facility]. Complications: NoneCardiac Rehab Consult needed: NoConfirmed administered medications: Yes tsites 12:48 AM Isovue 370 - 500ml,1 Bottle(s) used. tsites 12:48 AM Arterial sheath pulled, Vasc Band closure device used and was Successful S/N. tsites 12:48 AM HR=72 bpm, EPRP=100/34 mmhg, SpO2=97 %, Resp=42 B/min 12:49 AM 11 ml air in Vasc Band. tsites 12:49 AM Post ECG NSR tsites 12:49 AM Post Blood Pressure 103/34 tsites 12:49 AM 00:49 Post Pulses Rt Radial 2+ tsites 12:49 AM Information taught Vasc Band tsites 12:49 AM Education needs Procedure, Plan of Care, and Responsibilities of Patient in Care tsites 12:50 AM Learning barriers :None tsites 12:50 AM Education Methods Verbal tsites 12:50 AM Education evaluation Able to repeat information tsites 12:50 AM Site status No bleeding/hematoma - Rt Wrist as reported by Julee Mars RT at 00:50 tsites 12:53 AM HR=73 bpm, NIBP=86/56 mmhg, SpO2=91 % 12:58 AM Time: 00:57 Amiodarone 150 mg Intravenous Given by Floresita Melchor RN tsites 12:58 AM HR=77 bpm, NIBP=84/37 mmhg, SpO2=92 % 01:00 AM Report given to chey PIERRE Pt taken to ICU Room #4. 01:00 tsites 01:02 AM NIBP STAT measurement started. 01:02 AM HR=78 bpm, NIBP=89/31 mmhg, SpO2=77 % 01:04 AM no pulse, pea cpr started tsites 01:04 AM 1 mg epi given tsites 01:05 AM Vitals capture stopped. 01:06 AM pulse check pea compressions resumed tsites 01:07 AM 1 mg epi given tsites 01:09 AM v tach shock at 200j resumed cpr tsites 01:10 AM 1 mg epi given tsites 01:10 AM Amanda Amador RN and Chey Monsivais RN tsites 01:11 AM vatach shock at 300j cpr resumed tsites 01:13 AM v tach 300j shock cpr resumed tsites 01:15 AM sinus tach pulse tsites 01:15 AM NIBP STAT measurement started. 01:16 AM central line placed 4 fr sheath inserted lt groin tsites 01:16 AM HR=7 bpm, FNWV=009/68 mmhg, Resp=10 B/min 01:19 AM Vitals capture started with the following parameters, Patient=Adult, Interval=5 min, Initial Axcyvudp=272 mmHg, Deflation Rate=5 mmHg, Cuff placed on Left Arm 01:20 AM dopamine 20 mcg/kg tsites 01:20 AM HR=3 bpm, ZDGU=819/66 mmhg, Resp=15 B/min 01:24 AM amiodarone bolus complete drip started at 1mg tsites 01:25 AM pea cpr started tsites :26 AM no pulse cpr resumed tsites 01:26 AM 1 mg epi given tsites 01:26 AM Vitals capture stopped. 01:28 AM pulse check v tach tsites 01:28 AM v tach shock at 300j cpr resumed tsites 01:30 AM 1 mg epi given tsites :31 AM pulse check vtach tsites 01:31 AM vtach shock 300j tsites 01:33 AM vtach shock at 360 tsites 01:33 AM 1 mg epi given tsites 01:34 AM 1 amp bicarb tsites 01:36 AM no pulse vtach tsites 01:36 AM shock at 360j tsites 01:37 AM 1 mg epi given tsites 01:38 AM vtach shock at 360j tsites 01:40 AM pulse check tsites 01:40 AM vtach shock at 360j tsites 01:40 AM 1mg epi given tsites 01:40 AM 150mg amiodarone given through cental line tsites 01:41 AM 1 amp bicarb tsites 01:42 AM pulse check pulse present . pt hooked up to transducer ao pressure 121/50 tsites 01:[address] Vivar spoke with family about code status . tsites 01:43 AM family changed patient to dnrcc tsites 01:47 AM Patient out of room: 01:47 tsites 01:47 AM patient transfered to icu bed status unchanged tsites 01:47 AM Patient out of room: 01:47 tsites Complications Complication None Hemodynamics Pressures Site Systolic/A Wave Diastolic/V Wave Mean AO 81 62 70 AO 86 68 77 LV 104 17 30 LV 99 16 27 AO 89 32 59 Post Procedure Information Blood Pressure: 103/34 mmHg Rhythm: NSR Post procedural instructions were given Closure Device Time Device Success/Fail Mechanical Compression Successful Site Checks Time Location Status Staff Sheath In? Note 12:50 AM Rt Wrist No bleeding/hematoma Julee Mars RT Pulses Time Site Pre-Procedure Post-Procedure Note Bilateral DP \\T\\ PT Doppler Bilateral radial 2+ 12:49:00 AM Rt Radial 2+ Updated by lEa Vogel RT(R) on 11/16/2016 8:15:04 AM Elida Soto RT electronically signed on 11/19/2016 12:08:42 PM with status of Final
== END 2016-11-16 05:09 | disposition expired ==
LOC: ICNU 11-16 00:12
PROVIDERS: ADMIT Emergency Medicine; ATTEND Emergency Medicine